=== PATIENT | male | born 1940 | race Caucasian/White ===

== ENCOUNTER 2019-11-15 12:01 | Outpatient (CLI) | payer OTHER, SELFPAY ==
[2019-11-15 13:53] LABS: Add Urine Microscopic? YES; Amorphous Sediment Urine Few; Appearance Urine Clear (Clear); Bilirubin Urine Negative (Negative); Blood Urine 1+ (Negative); Color Urine Yellow (Yellow); Glucose Urine UA Negative (Negative); Ketones Urine Negative (Negative); Leukocyte Esterase Ur 3+ LEU/UL (Negative); Mucus Urine Rare /lpf; Nitrate Urine Negative (Negative); Protein Urine Negative (Negative); RBC Urine 51-75 /hpf (0-2); Specific Grav Ur 1.012 (1.001-1.035); Urobilinogen Urine Negative mg/dL (<2.0); WBC Urine 21-30 /hpf
== END 2019-11-15 12:02 | disposition home or self-care (01) ==
PROVIDERS: PCP Internal Medicine; Visit Provider Internal Medicine
DX: R39.11 Hesitancy of micturition (principal)
CPT/HCPCS: 81001; 87086; 87088; 87147

== ENCOUNTER 2019-11-16 09:31 | Emergency (ER) | payer OTHER, SELFPAY ==
--- NOTE | ~2019-11-16 | CT_ITS ---
EXAMINATION: CT abdomen pelvis wo con EXAM DATE: 11/16/2019 10:00 INDICATION: Right flank pain. Urinary retention. History nephrolithiasis. TECHNIQUE: Spiral CT of the abdomen and pelvis was performed without contrast. Axial, coronal and sag ittal images were reviewed. The dose-length product (DLP) for this examination was 714.41 mGy-cm. T he exposure was tailored according to patient size (auto mA exposure control), and iterative reconstr uction (ASIR) was used as additional dose reduction technique. Comparison is made to prior examinatio n from 09/05/2018. FINDINGS: There is no nephrolithiasis or hydronephrosis. There is mild prostatomegaly. Severe bladd er distention, similar appearance on prior study. Small bilateral inguinal fat-containing hernias. Sm all umbilical fat-containing hernia. There is mild hepatic steatosis without suspicious focal lesion identified. Spleen, adrenal glands, pancreas are unremarkable. Gallbladder is unremarkable. No carla iary obstruction. There is no retroperitoneal or pelvic lymphadenopathy. There is mild to moderate scattered arteriosclerotic disease. The appendix is normal. There is small sliding gastroesophageal hiatal hernia. There is extensive co lonic diverticulosis. There is no adjacent inflammatory change to suggest diverticulitis. No free i ntraperitoneal gas. The heart is normal in size. There are no pericardial or pleural effusions. T he lung bases are unremarkable. There are no osteoblastic or osteolytic lesions identified. Fused sa croiliac joints. IMPRESSION: 1. Severe chronic bladder distention. Mild prostatomegaly. No hydronephrosis. 2. Small fat-containing hernias. 3. Colonic diverticulosis. Reviewed, dictated and finalized at location A.
--- NOTE | 2019-11-16 09:38 | ED.GENADULT ---
HPI - General Adult General Chief complaint: Urogenital-Male Stated complaint: DIFFICULTY URINATING Time Seen by Provider: 11/16/19 09:35 Source: patient and family Mode of arrival: ambulatory Limitations: no limitations History of Present Illness HPI narrative: Patient is a 79-year-old male with a history of nephrolithiasis who presents for evaluation of difficulty with urination. Patient reports urinary retention since yesterday, states he is only been able to get small dribbling of urination. He has not noticed any hematuria or dysuria. He has no abdominal pain, states he does just feel mildly distended. He has reported some dull, aching right flank pain which seems to come and go. He also reports this is mild in nature. Patient states he has a history of urinary retention in 2010 when he was found to have a large stone in his bladder which required surgical removal. Patient does not follow with any urologist currently. He has noted to have prostate issues as well per the patient. Patient denies fever, chills, nausea or vomiting. No other chest pain or upper abdominal pain. Related Data Allergies Allergy/AdvReac Type Severity Reaction Status Date / Time morphine Allergy Severe Hypotension Verified 11/16/19 09:58 oak Allergy Unknown posion oak Verified 11/16/19 09:58 Review of Systems Review of Systems: Narrative: CONSTITUTIONAL: Denies fever, chills, or sweats. CARDIOVASCULAR: Denies chest pain RESPIRATORY: Denies cough or dyspnea. GASTROINTESTINAL: Denies abdominal pain, nausea, vomiting, or diarrhea. Reports right-sided flank pain. GENITOURINARY: Denies dysuria or hematuria. Reports hesitancy and urinary retention. SKIN: Denies rash or itching. MUSCULOSKELETAL: denies myalgias NEUROLOGIC: Denies headache, numbness, or weakness. [facility] Past Medical History Medical History (Updated 11/16/19 @ 11:09 by Leonila Mulligan MD) Diverticulitis Hyperlipidemia Hypertension Nephrolithiasis Pneumonia Surgical History Surgical History (Updated 11/16/19 @ 09:51 by Leonila Mulligan MD) History of prostate surgery Previous back surgery Family History Family History (Updated 05/30/18 @ 15:38 by DOCTOR UNKNOWN) Sibling Hypertension Malignant neoplasm of prostate Patient's brother is Mother Family history of malignant neoplasm of breast in first degree relative Family history of malignant neoplasm of urinary bladder Patient's mother is Father Patient's father is Social History Social History Smoking status: Never smoker Alcohol intake: never Gender identity (if verbalized by the patient): Male Exam Narrative: Exam Narrative: GENERAL: Awake, alert, conversant HEAD: Normocephalic, atraumatic. EYES: PERRLA and EOMI. ENT: Nares clear, no rhinorrhea or epistaxis. Mucous membranes moist. NECK: Supple. CHEST: No respiratory distress, breathing even and non labored HEART: Regular rate, sinus rhythm ABDOMEN:Mild distension, non tender EXTREMITIES: Normal range of motion. No edema. SKIN: Warm, dry, no rash. NEURO:No focal deficits. Alert and oriented x3 Course Vital Signs Vital signs: Vital Signs Temperature 36.4 C L 11/16/19 09:55 Pulse Rate 66 11/16/19 09:55 Respiratory Rate 18 11/16/19 09:55 Blood Pressure 143/82 H 11/16/19 09:55 Pulse Oximetry 98 11/16/19 09:55 Temperature 36.4 C L 11/16/19 09:55 Pulse Rate 66 11/16/19 09:55 Respiratory Rate 18 11/16/19 09:55 Blood Pressure 143/82 H 11/16/19 09:55 Pulse Oximetry 98 11/16/19 09:55 Medical Decision Making MDM Narrative Medical decision making narrative: Patient presented for evaluation of urinary retention, mild right flank pain. At the time of assessment, ABCs are intact and vital signs are stable. Physical exam relatively noncontributory, mild abdominal distention, no exquisite tenderness. Laboratory results are reassuring. No leukocyt
[2019-11-16 09:55] VITALS: BP 143/82; PULSE 66; RESP 18; TEMP 36.4; O2SAT 98
--- NOTE | 2019-11-16 10:10 | PC.NURSE ---
Perkins cath clamped. 1000ml emptied from bag.
[2019-11-16 10:14] LABS: Basophils Percent Auto 0.3 % (0.2-1.2); Eosinophils Absolute Auto 0.2 K/mm3 (0-0.3); Eosinophils Percent Auto 2.7 % (0-4.4); Hematocrit 43.6 % (42.0-52.0); Hemoglobin 14.4 g/dL (14.0-18.0); Immature Granulocyte Absolute 0.01 K/mm3 (0.00-0.031); Immature Granulocyte Percent A 0.2 % (0-0.5); Lymphocytes Absolute Auto 1.35 K/mm3 (0.9-3.2); Lymphocytes Percent Auto 22.5 % (18.3-44.2); Mean Corpuscular Hemoglobin 31.4 pg (26-34); Mean Platelet Volume 9.1 fl (7.4-10.4); Monocytes Absolute Auto 0.8 K/mm3 (0.1-0.6); Monocytes Percent Auto 12.8 % (2.6-8.5); Neutrophils Absolute Auto 3.7 K/mm3 (1.3-6.7); Neutrophils Percent Auto 61.5 % (45.5-73.1); Platelet Count Result 226 k/mm3 (150-375); Red Blood Count 4.59 M/mm3 (4.6-6.20)
[2019-11-16 10:23] LABS: Add Urine Microscopic? YES; Appearance Urine Clear (Clear); Bilirubin Urine Negative (Negative); Blood Urine 1+ (Negative); Color Urine Straw (Yellow); Glucose Urine UA Negative (Negative); Ketones Urine Negative (Negative); Leukocyte Esterase Ur Negative LEU/UL (Negative); Nitrate Urine Negative (Negative); Protein Urine Negative (Negative); Urobilinogen Urine Negative mg/dL (<2.0); WBC Urine 0-3 /hpf
[2019-11-16 10:32] LABS: Alanine Aminotransferase 33 U/L (4-50); Albumin Level 4.8 g/dL (3.5-5.1); Alkaline Phosphatase 65 U/L (38-126); Aspartate Amino Transferase 39 U/L (17-59); Bilirubin,Total 0.6 mg/dL (0.2-1.3); Blood Urea Nitrogen 15 mg/dL (9-20); Calcium 9.8 mg/dL (8.4-10.2); Carbon Dioxide 29 mmol/L (22-30); Chloride 102 mmol/L (98-107); Estimated CRCL calculation 68 ml/min; Estimated Glomerular Filt Rate > 60; Glucose 102 mg/dL (75-110); Lipase 90 U/L (23-300); Potassium 4.4 mmol/L (3.4-5.0); Sodium 136 mmol/L (137-145)
== END 2019-11-16 11:26 | disposition home or self-care (01) ==
PROVIDERS: Emergency Provider Emergency Medicine; PCP Internal Medicine
DX: N40.1 Benign prostatic hyperplasia with lower urinary tract symptoms (principal); R33.8 Other retention of urine; E78.5 Hyperlipidemia, unspecified; I10 Essential (primary) hypertension; K57.90 Diverticulosis of intestine, part unspecified, without perforation or abscess without bleeding; K44.9 Diaphragmatic hernia without obstruction or gangrene
CPT/HCPCS: 36415; 51702; 74176; 80053; 81001; 83690; 85025; 99284

== ENCOUNTER 2019-12-19 18:37 | Inpatient (IN) | payer OTHER, SELFPAY ==
--- NOTE | ~2019-12-19 | CT_ITS ---
EXAMINATION: CT abdomen pelvis w con DATE: 12/19/2019 20:58 INDICATION: Right lower abdominal pain TECHNIQUE: Computed tomography (CT) of the abdomen and pelvis was performed with 100 cc Omnipaque 350 intravenous contrast. The dose-length product was 698.70 mGy-cm. Automated exposure control and iter ative reconstruction technique were employed. COMPARISON: CT dated 11/16/2019 FINDINGS: Lung bases unremarkable. Heart size normal. No significant pleural or pericardial effusion. Fatty infiltration of the liver. The spleen, pancreas, adrenal glands and right kidney are unremarkab le. There is mild left hydroureteronephrosis. There is diffuse bladder wall thickening with mild valentine vesical infiltration. Enlarged prostate gland. Nonobstructive bowel gas pattern. Small fat-containing umbilical hernia. Colonic diverticulosis without evidence for diverticulitis. Moderate osteoarthriti s of the hips. There is ankylosis of the sacroiliac joints. Moderate lumbar spondylosis. Punctate non obstructing left renal stones. IMPRESSION: 1. Diffuse bladder wall thickening with perivesical fatty infiltration, suspicious for cystitis. Jennifer elate with urinalysis. 2: Enlarged prostate gland. 3: Mild left hydroureteronephrosis. 4: Punctate nonobstructing left renal stones. 5: Hepatic steatosis. Reviewed, dictated and finalized at location A. IMPRESSION: 1. Diffuse bladder wall thickening with perivesical fatty infiltration, suspici ous for cystitis. Correlate with urinalysis. 2: Enlarged prostate gland. 3: Mild left hydroureteronephrosis. 4: Punctate nonobstructing left renal stones. 5: Hepatic steatosis.
--- NOTE | ~2019-12-19 | US_ITS ---
US renal BI 12/20/2019 16:38 Procedure: Realtime transabdominal ultrasound of the kidneys and bladder. Indication: Left hydronephrosis Comparison: CT dated 12/19/2019 Findings: Renal echotexture is normal bilaterally without hydronephrosis, contour deforming mass or r enal calculus. The right kidney measures 12.2 cm and left kidney measures 12.2 cm. There is a Perkins c atheter in the bladder limiting evaluation. Impression: 1: Unremarkable renal ultrasound. No stones, masses or hydronephrosis. Reviewed, dictated and finalized at location A. Impression: 1: Unremarkable renal ultrasound. No stones, masses or hydronephrosis.
--- NOTE | ~2019-12-19 | CT_ITS ---
EXAMINATION: CT brain wo con EXAM DATE: 12/21/2019 05:37 INDICATION: Sepsis. UTI, head trauma. Possible stroke. TECHNIQUE: Spiral CT of the head was performed without contrast. Axial, coronal and sagittal images were reviewed. The dose-length product (DLP) for this examination was 605.33 mGy-cm. The exposure w as tailored according to patient size, and iterative reconstruction (ASIR) was used as additional dos e reduction technique. There is no prior study for comparison. FINDINGS: There is no acute intraparenchymal hemorrhage. No evidence of intraparenchymal brain mass lesion. No evidence of acute infarction. Please note that initial head CT has limited sensitivity f or small or acute infarctions. There is mild to moderate periventricular and subcortical hypodensity, nonspecific but probably related to small vessel ischemic disease. There is ventricular prominence out of proportion to sulci which is suspected most likely central atrophy rather than hydrocephalus. Normal pressure hydrocephalus cannot be excluded (clinical triad ataxia/gait disturbance, dementia, urinary incontinence). There is intracranial carotid arteriosclerosis. There are no extra-axial c ollections. There is no mass effect or midline shift. Patient has had bilateral ocular lens surgery . Moderate sized left frontal scalp contusion. The visualized sinuses and mastoid air cells are well aerated. IMPRESSION: 1. No acute intracranial findings. 2. Chronic age related findings. 3. Moderate-sized left frontal scalp contusion. Reviewed, dictated and finalized at location A.
--- NOTE | ~2019-12-19 | XR_ITS ---
XR chest 1V portable 12/19/2019 20:26 Indication: Fever. Hypertension. Procedure: AP portable chest Comparison: 09/05/2018 Findings: Cardiomegaly. No focal air space disease, pulmonary edema, pleural effusion or suspected pn eumothorax. Impression: 1: No acute cardiopulmonary disease. Reviewed, dictated and finalized at location A. Impression: 1: No acute cardiopulmonary disease.
[2019-12-19 19:18] VITALS: BP 132/58; PULSE 103; RESP 20; TEMP 38.6; O2SAT 95
[2019-12-19 19:50] VITALS: BP 130/76; PULSE 112; RESP 17; O2SAT 96
--- NOTE | 2019-12-19 20:02 | ED.ABDPAIN ---
HPI - Abdominal Pain General Chief Complaint: Urogenital-Male Stated Complaint: confused, uti? Time Seen by Provider: 12/19/19 19:47 Source: patient and family Mode of arrival: ambulatory Limitations: altered mental status History of Present Illness HPI narrative: This patient is a 79 year old male with history urinary retention and self cath who presents for evaluation of confusion and UTI. His states patient starting having issues with urinary retention in October. After being evaluated by urologist, patient decided to start performing self catheterizations 2 days ago in order to keep from having an indwelling catheter. His states today patient has been confused and he is complaining of right lower abdominal pain. She spoke to his urologist today and patient was prescribed ciprofloxacin. He took his first dose of antibiotics at 5 pm. Patient is in the ER for evaluation due to confusion . . She noticed patient is having foul odorous and cloudy urine today as well. PAtient reports nausea but no vomiting. He also denies cough, sob, diarrhea, chest pain or back pain. Related Data Home Medications Medication Instructions Recorded Confirmed enalapril maleate 20 mg PO DAILY 12/19/19 12/19/19 pantoprazole 40 mg PO DAILY 12/19/19 12/19/19 Allergies Allergy/AdvReac Type Severity Reaction Status Date / Time morphine Allergy Severe Hypotension Verified 12/19/19 19:17 oak Allergy Unknown posion oak Verified 12/19/19 19:17 Review of Systems Review of Systems: All systems reviewed & are unremarkable except as noted in HPI and below Constitutional: Constitutional: Reports fatigue and Reports fever(s) Cardiovascular: Cardiovascular: Denies chest pain Respiratory: Respiratory: Denies cough and Denies dyspnea Gastrointestinal: Gastrointestinal: Reports abdominal pain, Denies diarrhea, Reports nausea and Denies vomiting Genitourinary: Genitourinary: Reports dysuria Musculoskeletal: Musculoskeletal: Denies back pain PMFSH Past Medical History Medical History Diverticulitis Hyperlipidemia Hypertension Nephrolithiasis Pneumonia Surgical History Surgical History History of prostate surgery Previous back surgery Family History Family History Sibling Hypertension Malignant neoplasm of prostate Patient's brother is Mother Family history of malignant neoplasm of breast in first degree relative Family history of malignant neoplasm of urinary bladder Patient's mother is Father Patient's father is Social History Social History Smoking status: Never smoker Alcohol intake: never Substance use: never Substance use type: does not use Gender identity (if verbalized by the patient): Male Spiritual care concerns: No Exam Const: General: no acute distress and alert Orientation/consciousness: patient oriented x3 HENMT: Head: normocephalic and atraumatic Face and sinus: face symmetric Mouth: Yes oropharynx normal and Yes moist mucous membranes Throat: uvula midline Eyes: Pupils: Equal, round and reactive pupils present EOM: EOMs intact bilaterally Neck: Neck: no lymphadenopathy Chest: Chest palpation & inspection: normal inspection of the chest Resp: Effort & Inspection: normal respiratory effort and no retractions Auscultation: clear to auscultation bilaterally Cardio: Rate: tachycardic Rhythm: regular rhythm Heart sounds: no murmurs GI: GI Palp: Yes Soft to palpation, Yes Tenderness to palpation present (GI) (RLQ), No Guarding due to palpation present (GI) and No Rigid due to palpation Back/Spine/Pelvis: Back: no CVA tenderness Skin: General skin exam: normal color Rashes: no rashes Neuro: General: faina
[2019-12-19] MEDS: SODIUM CHLORIDE 0.9% IV 1,000 ML 999 ML IV CONT (20:09)
[2019-12-19 20:13] LABS: Hematocrit 38.8 % (42.0-52.0); Hemoglobin 12.9 g/dL (14.0-18.0); Mean Corpuscular HGB Conc 33.2 g/dl (32-36); Mean Corpuscular Hemoglobin 31.1 pg (26-34); Mean Corpuscular Volume 93.5 fl (80-100); Mean Platelet Volume 9.3 fl (7.4-10.4); Platelet Count Result 313 k/mm3 (150-375); Red Blood Count 4.15 M/mm3 (4.6-6.20); Red Cell Distribution Width 12.7 % (11.5-14.5); White Blood Count 13.6 K/mm3 (4.5-10.0)
[2019-12-19 20:23] LABS: INR 1.1; Partial Thromboplastin Time 26.3 SECONDS (22.3-36.8); Prothrombin Time 13.8 Seconds (11.1-14.7)
[2019-12-19 20:24] LABS: Add Urine Microscopic? YES; Appearance Urine Cloudy (Clear); Bacteria Urine 1+ /hpf; Bilirubin Urine Negative (Negative); Blood Urine Negative (Negative); Color Urine Yellow (Yellow); Glucose Urine UA Negative (Negative); Ketones Urine Negative (Negative); Leukocyte Esterase Ur 3+ LEU/UL (Negative); Nitrate Urine Positive (Negative); Protein Urine 1+ mg/dL (Negative); Specific Grav Ur 1.012 (1.001-1.035); Urobilinogen Urine Negative mg/dL (<2.0); WBC Urine >75 /hpf
[2019-12-19 20:24] LABS: Lactic Acid Reflex 2.7 mmol/L (0.7-2.1)
[2019-12-19 20:27] LABS: Alanine Aminotransferase 28 U/L (4-50); Albumin Level 4.4 g/dL (3.5-5.1); Alkaline Phosphatase 60 U/L (38-126); Anion Gap 14.3 mmol/L (7-16); Aspartate Amino Transferase 34 U/L (17-59); Bilirubin,Total 0.4 mg/dL (0.2-1.3); Blood Urea Nitrogen 16 mg/dL (9-20); CRP 3.4 mg/dL (<1.0); Calcium 9.3 mg/dL (8.4-10.2); Carbon Dioxide 24 mmol/L (22-30); Chloride 100 mmol/L (98-107); Estimated CRCL calculation 68 ml/min; Estimated Glomerular Filt Rate > 60; Glucose 129 mg/dL (75-110); Potassium 4.3 mmol/L (3.4-5.0); Sodium 134 mmol/L (137-145)
[2019-12-19 20:33] LABS: Band Neutrophils Percent 6 % (0-6); Monocytes Absolute Manual 1.08 K/mm3 (0.1-0.90); Monocytes Percent Manual 8 % (3-9); Neutrophils Absolute Manual 12.51 K/mm3 (1.3-6.7); Neutrophils Percent Manual 86 % (46-73); Platelet Estimate Adequate (Adequate); Total Cells Counted 100
[2019-12-19 21:10] VITALS: BP 114/62; PULSE 102; RESP 21; O2SAT 94
[2019-12-19 22:15] VITALS: BP 120/70; PULSE 106; RESP 20; O2SAT 95
--- NOTE | 2019-12-19 22:40 | PM.IMHP ---
H&P: HPI History of Present Illness Chief complaint: severe sepsis, UTI Narrative: This is a 79 year old male who just started to self catheterize two days ago secondary to chronic urinary retention and presented to the hospital with a complaint of increasing confusion and fever this evening. The patient has had over a month of urinary retention and previously had an indwelling Perkins catheter. Urology gave him the option of a permanent urinary catheter vs. self catheterizing. 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 Associated symptoms include dysuria, urinary frequency, hematuria, and foul smelling urine. On arrival to the ER the patient also complained of right lower quadrant pain. CT abd pelvis was obtained which demonstrated diffuse bladder wall thickening with perivesical fatty infiltration, an enlarged prostate gland, and miild left hydroureteronephrosis. The patient was also found to be septic with tachycardia, leukocytosis, tachypnea, and an elevated lactic acid. He was treated with IV antibiotics and we have been asked to admit the patient to the hospital for further care. He denies focal neurological deficits, chest pain, shortness of breath, nausea, vomiting, flank pain, cough, or sore throat. He has no other complaints at this time. Review of Systems Review of Systems: All systems reviewed & are unremarkable except as noted in HPI and below PMFSH Past Medical History Medical History Diverticulitis Hyperlipidemia Hypertension Nephrolithiasis Pneumonia Surgical History Surgical History History of prostate surgery Previous back surgery Family History Family History Sibling Hypertension Malignant neoplasm of prostate Patient's brother is Mother Family history of malignant neoplasm of breast in first degree relative Family history of malignant neoplasm of urinary bladder Patient's mother is Father Patient's father is Social History Social History Smoking status: Never smoker Alcohol intake: never Substance use: never Substance use type: does not use Gender identity (if verbalized by the patient): Male Spiritual care concerns: No Meds Home Medications and Allergies Home Medications Medication Instructions Recorded Confirmed Type fluticasone propionate 50 2 spray NASAL DAILY #18.2 ml 10/10/19 12/19/19 Rx mcg/actuation nasal spray,suspension pravastatin 40 mg tablet 40 mg PO DAILY #90 tablet 11/11/19 12/19/19 Rx tamsulosin [Flomax] 0.4 mg PO HS 30 Days #30 cap 11/16/19 12/19/19 Rx enalapril maleate 20 mg PO DAILY 12/19/19 12/19/19 History pantoprazole 40 mg PO DAILY 12/19/19 12/19/19 History Allergies Allergy/AdvReac Type Severity Reaction Status Date / Time morphine Allergy Severe Hypotension Verified 12/19/19 19:17 oak Allergy Unknown posion oak Verified 12/19/19 19:17 Vital Signs Vital Signs - 24 hr 12/19/19 19:18 12/19/19 19:50 12/19/19 21:10 Temperature 38.6 C H Pulse Rate 103 H 112 H 102 H Respiratory Rate 20 17 21 H Blood Pressure 132/58 L 130/76 114/62 Pulse Oximetry 95 96 94 Exam Const: General: cooperative, no acute distress, alert and awake Nutritional Appearance: well nourished Orientation/consciousness: patient oriented x3 HENMT: Head: normal to inspection General nose exam: Normal external nose present Face and sinus: normal facial exam Mouth: Yes Normal oral and palatal mucosa present and Yes oropharynx normal Eyes: Pupils: Equal, round and reactive pupils present EOM: EOMs intact bilaterally Neck: Neck: supple and no JVD Thyroid: thyroid normal Lymphatic: lymphadenopathy not note
[2019-12-19 23:11] LABS: Reflex Lactic Acid Yes or No Add Lactic
[2019-12-19 23:50] VITALS: BP 109/65; PULSE 99; RESP 16; TEMP 37.2; O2SAT 97
[2019-12-19 23:51] VITALS: BMI 28.6
[2019-12-20 00:08] LABS: Lactic Acid 1.1 mmol/L (0.7-2.1)
[2019-12-20] MEDS: SODIUM CHLORIDE 0.9% IV 1,000 ML 125 ML IV CONT ×3 (00:21→17:04)
[2019-12-20 05:14] VITALS: BP 125/70; PULSE 93; RESP 16; TEMP 37.3; O2SAT 97
[2019-12-20 05:37] LABS: Basophils Percent Auto 0.3 % (0.2-1.2); Eosinophils Percent Auto 0.1 % (0-4.4); Hematocrit 35.8 % (42.0-52.0); Hemoglobin 11.6 g/dL (14.0-18.0); Immature Granulocyte Percent A 0.7 % (0-0.5); Lymphocytes Absolute Auto 0.91 K/mm3 (0.9-3.2); Lymphocytes Percent Auto 6.1 % (18.3-44.2); Mean Corpuscular HGB Conc 32.4 g/dl (32-36); Mean Corpuscular Hemoglobin 30.6 pg (26-34); Mean Corpuscular Volume 94.5 fl (80-100); Monocytes Absolute Auto 1.4 K/mm3 (0.1-0.6); Monocytes Percent Auto 9.2 % (2.6-8.5); Neutrophils Absolute Auto 12.4 K/mm3 (1.3-6.7); Neutrophils Percent Auto 83.6 % (45.5-73.1); Platelet Count Result 243 k/mm3 (150-375); Red Blood Count 3.79 M/mm3 (4.6-6.20); Red Cell Distribution Width 12.9 % (11.5-14.5); White Blood Count 14.8 K/mm3 (4.5-10.0)
[2019-12-20 05:50] LABS: Alanine Aminotransferase 21 U/L (4-50); Albumin Level 3.6 g/dL (3.5-5.1); Alkaline Phosphatase 47 U/L (38-126); Aspartate Amino Transferase 24 U/L (17-59); Bilirubin,Total 0.5 mg/dL (0.2-1.3); Blood Urea Nitrogen 13 mg/dL (9-20); Calcium 8.6 mg/dL (8.4-10.2); Carbon Dioxide 26 mmol/L (22-30); Chloride 105 mmol/L (98-107); Estimated CRCL calculation 61 ml/min; Estimated Glomerular Filt Rate > 60; Glucose 119 mg/dL (75-110); Sodium 136 mmol/L (137-145)
[2019-12-20] MEDS: ENALAPRIL MALEATE 10 MG TABLET 20 MG PO (08:06)
[2019-12-20] MEDS: PANTOPRAZOLE 40 MG TABLET PO (08:06)
[2019-12-20] MEDS: FLUTICASONE PROPIONATE 0.05% NA SPR 16 GM BTL (*BKC) 2 SPRAY NASAL (08:06)
[2019-12-20] MEDS: PRAVASTATIN SODIUM 20 MG TABLET 40 MG PO (08:06)
[2019-12-20 14:00] VITALS: BP 105/63; PULSE 72; RESP 16; TEMP 36.4; O2SAT 100
--- NOTE | 2019-12-20 14:01 | WPDURCON ---
Assessment and Plan Assessment and plan (1) Complicated UTI (urinary tract infection): Code(s): N39.0 - Urinary tract infection, site not specified Status: Acute Assessment and Plan: Continue IV antibiotics, tailor to culture results. (2) BPH (benign prostatic hyperplasia): Code(s): N40.0 - Benign prostatic hyperplasia without lower urinary tract symptoms Status: Acute Assessment and Plan: Plan to have cysto next week with Dr. Lopez as long as he is discharged, we will re-check urine prior to scope to ensure resolution of infection. 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 D/t his atonic bladder he will have to resume self catheterization to ensure proper emptying and avoid hydronephrosis. Creatinine is normal. He does not want an indwelling lanza, that would need monthly changes, he elected self catheterization. He understands he will be at a higher risk of UTI's, but either way he is d/t the complicated issue of retention/indwelling lanza versus self catheterization. (4) Hydronephrosis: Code(s): N13.30 - Unspecified hydronephrosis Status: Acute Assessment and Plan: Will get BRANT to ensure resolution post lanza placement. (5) Left renal stone: Code(s): N20.0 - Calculus of kidney Status: Acute Assessment and Plan: Punctate left renal stones non obstructive. Will monitor, no intervention needed. Urology Consult Note HPI Date Seen: 12/20/19 Requesting Physician: Fam Garcia MD Primary Care Provider: Keith Stahl DO Consult Narrative Narrative: Hermes Killian is a 79 year old male who presented to the ER yesterday with confusion, dysuria, hematuria, fever, tachycardia and hypotension. 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 He was taught how to self catheterize and his indwelling lanza was removed at that office visit. He demonstrated self catheterization well and understands he will need to do this indefinately. He is also scheduled for a cystoscopy with Dr. Lopez to evaluate his known BPH on 12/24/2019 at 07:45. He called yesterday to report symptoms of a UTI with hematuria and dysuria, we started him on Ciprofloxacin. He denied a fever, chills, vomiting, nausea or confusion yesterday per our phone conversation. His CT scan shows BPH, left hydronephrosis, bladder wall thickening and punctate kidney stones that are non obstructive. UA is nitrite positive and urine cultures/blood cultures are pending. WBC is elvated >14,000 but creatinine is stable. Hydronephrosis on the left is noted on CT, d/t known retention. Review of Systems Cardiovascular: Cardiovascular: Denies chest pain Respiratory: Respiratory: Reports no additional respiratory complaints Gastrointestinal: Gastrointestinal: Denies abdominal pain, Denies nausea and Denies vomiting Genitourinary: Genitourinary: Reports hematuria, Reports oliguria, Reports dysuria, Denies flank pain, Reports nocturia, Denies urinary frequency, Reports urinary hesitancy and Denies urinary urgency [facility] Past Medical History Medical History Diverticulitis Hyperlipidemia Hypertension Nephrolithiasis Pneumonia Surgical History Surgical History History of prostate surgery Previous back surgery Family History Family History Sibling Hypertension Malignant neoplasm of prostate Patient's brother is Mother Family history of malignant neoplasm of breast in first degree relative Family history of malignant n
--- NOTE | 2019-12-20 16:52 | PM.IMPN ---
Progress Note: A&P Assessment and Plan (1) Complicated UTI (urinary tract infection): Code(s): N39.0 - Urinary tract infection, site not specified Status: Acute Assessment and Plan: Secondary to self catheterizing. Admit to med-surg, Continue IV antibiotics. Perkins catheter. Urine culture pending. 12/20/19 16:52 patient is 79 year with history of BPH and had been seen urology was recently diagnosed with atonic bladder and was instructed to do the self catheterization which patient had been doing however he presented emergency depart with lower abdominal feverish nausea or vomiting, patient is seen by Urology team, place the patient on Perkins catheter, patient is septic and being treated with Rocephin will follow up on urine culture and sensitivity, patient still complains of abdominal but denies any fever or chills at the present time. (2) Severe sepsis: Code(s): A41.9 - Sepsis, unspecified organism; R65.20 - Severe sepsis without septic shock Status: Acute Assessment and Plan: Source of sepsis appear to be urinary. Continue IV antibiotics. Light IV hydration overnight. Check reflex lactic acid. Blood and urine cultures pending. (3) Leukocytosis: Qualifiers: Leukocytosis type: unspecified Qualified Code(s): D72.829 - Elevated white blood cell count, unspecified Code(s): D72.829 - Elevated white blood cell count, unspecified Status: Acute Assessment and Plan: secondary to sepsis and UTI monitor CBCd. (4) Hyperlipidemia: Qualifiers: Hyperlipidemia type: unspecified Qualified Code(s): E78.5 - Hyperlipidemia, unspecified Code(s): E78.5 - Hyperlipidemia, unspecified Status: Chronic Assessment and Plan: Continue pravastatin. (5) Hypertension: Qualifiers: Hypertension type: unspecified Qualified Code(s): I10 - Essential (primary) hypertension Code(s): I10 - Essential (primary) hypertension Status: Chronic Assessment and Plan: Monitor blood pressure. Continue enalapril. (6) Gastroesophageal reflux disease: Qualifiers: Esophagitis presence: esophagitis presence not specified Qualified Code(s): K21.9 - Gastro-esophageal reflux disease without esophagitis Code(s): K21.9 - Gastro-esophageal reflux disease without esophagitis Status: Chronic Assessment and Plan: Continue PPI therapy Subjective Date/time seen: 12/20/19 16:52 patient is 79 year with history of BPH and had been seen urology was recently diagnosed with atonic bladder and was instructed to do the self catheterization which patient had been doing however he presented emergency depart with lower abdominal feverish nausea or vomiting, patient is seen by Urology team, place the patient on Perkins catheter, patient is septic and being treated with Rocephin will follow up on urine culture and sensitivity, patient still complains of abdominal but denies any fever or chills at the present time. Review of Systems Review of Systems: All systems reviewed & are unremarkable except as noted in HPI and below Exam Narrative: Exam Narrative: elderly frail Const: General: no acute distress and uncomfortable HENMT: General nose exam: Normal nares present Mouth: Yes moist mucous membranes Eyes: General: appearance normal, both eyes and all related structures Sclera: sclerae normal Neck: Neck: supple Resp: Effort & Inspection: normal respiratory effort Auscultation: clear to auscultation bilaterally Cardio: Rate: regular rate Rhythm: regular rhythm GI: Auscultation: normal bowel sounds Other: patient is tender in suprapubic area Skin: General skin exam: normal color Neuro: Speech: normal speech Sensory Exam: normal sensation Extrem: General: normal to inspection Psych: Affect: Anxious affect present Objective Data Vital Signs Vital Signs: Vital Signs - 24 hr 12/19/19 19:18 12/19/19 19:50 0
[2019-12-20 21:17] VITALS: BP 113/64; PULSE 93; RESP 16; TEMP 37.8; O2SAT 98
[2019-12-20] MEDS: TAMSULOSIN HCL 0.4 MG CAPSULE PO (21:22)
[2019-12-21] MEDS: SODIUM CHLORIDE 0.9% IV 1,000 ML 125 ML IV CONT ×3 (01:35→17:13)
[2019-12-21 04:54] VITALS: BP 115/58; PULSE 95; RESP 18; TEMP 36.9; O2SAT 98
--- NOTE | 2019-12-21 05:46 | PM.EVENT ---
Event Note Event Note Event Note: Called to evaluate this 79 year old male who is being treated for a UTI after he suffered a nonwitnessed fall tonight. The patient was sitting on the toilet and decided to stand up before he was going to call the nursing staff for help back into bed and he simply lost his balance and fell forward. He suffered head trauma and landed head first onto the floor. The patient sustained a 3x5 cm left frontal hematoma++ Currently he denies any focal neurological deficits and denies even having a headache. We will obtain a STAT CT brain to rule out any intracranial hemorrhage. He is not known to be on any anticoagulants.
[2019-12-21 06:16] LABS: Basophils Percent Auto 0.3 % (0.2-1.2); Eosinophils Percent Auto 0.3 % (0-4.4); Hematocrit 32.7 % (42.0-52.0); Hemoglobin 10.6 g/dL (14.0-18.0); Immature Granulocyte Absolute 0.09 K/mm3 (0.00-0.031); Immature Granulocyte Percent A 0.7 % (0-0.5); Mean Corpuscular HGB Conc 32.4 g/dl (32-36); Mean Corpuscular Hemoglobin 30.8 pg (26-34); Mean Corpuscular Volume 95.1 fl (80-100); Mean Platelet Volume 9.4 fl (7.4-10.4); Monocytes Absolute Auto 1.1 K/mm3 (0.1-0.6); Monocytes Percent Auto 8.3 % (2.6-8.5); Neutrophils Absolute Auto 11.4 K/mm3 (1.3-6.7); Neutrophils Percent Auto 82.4 % (45.5-73.1); Platelet Count Result 231 k/mm3 (150-375); Red Blood Count 3.44 M/mm3 (4.6-6.20); White Blood Count 13.8 K/mm3 (4.5-10.0)
[2019-12-21 06:30] LABS: Anion Gap 9.8 mmol/L (7-16); Blood Urea Nitrogen 11 mg/dL (9-20); Calcium 8.3 mg/dL (8.4-10.2); Carbon Dioxide 23 mmol/L (22-30); Chloride 106 mmol/L (98-107); Estimated CRCL calculation 61 ml/min; Estimated Glomerular Filt Rate > 60; Glucose 115 mg/dL (75-110); Potassium 3.8 mmol/L (3.4-5.0); Sodium 135 mmol/L (137-145)
[2019-12-21] MEDS: ENALAPRIL MALEATE 10 MG TABLET 20 MG PO (09:21)
[2019-12-21] MEDS: PANTOPRAZOLE 40 MG TABLET PO (09:21)
[2019-12-21] MEDS: PRAVASTATIN SODIUM 20 MG TABLET 40 MG PO (09:21)
[2019-12-21] MEDS: FLUTICASONE PROPIONATE 0.05% NA SPR 16 GM BTL (*BKC) 2 SPRAY NASAL (09:21)
--- NOTE | 2019-12-21 13:36 | PM.IMPN ---
Progress Note: A&P Assessment and Plan (1) Complicated UTI (urinary tract infection): Code(s): N39.0 - Urinary tract infection, site not specified Status: Acute Assessment and Plan: Secondary to self catheterizing. Admit to med-surg, Continue IV antibiotics. Perkins catheter. Urine culture pending. 12/21/19 13:36 Secondary to self catheterizing. Admit to med-surg, Continue IV antibiotics. Perkins catheter. Urine culture pending. 12/20/19 16:52 patient is 79 year with history of BPH and had been seen urology was recently diagnosed with atonic bladder and was instructed to do the self catheterization which patient had been doing however he presented emergency depart with lower abdominal feverish nausea or vomiting, patient is seen by Urology team, placed the patient on Perkins catheter, patient is septic, urine culture is growing Morganella morganii sensitive to Rocephin will continue, will treat with IV antibiotics total of 7 day, patient still complains of abdominal but denies any fever or chills at the present time. (2) Severe sepsis: Code(s): A41.9 - Sepsis, unspecified organism; R65.20 - Severe sepsis without septic shock Status: Acute Assessment and Plan: Source of sepsis appear to be urinary. Continue IV antibiotics. Light IV hydration overnight. Check reflex lactic acid. Blood and urine cultures pending. (3) Leukocytosis: Qualifiers: Leukocytosis type: unspecified Qualified Code(s): D72.829 - Elevated white blood cell count, unspecified Code(s): D72.829 - Elevated white blood cell count, unspecified Status: Acute Assessment and Plan: secondary to sepsis and UTI monitor CBCd. (4) Hyperlipidemia: Qualifiers: Hyperlipidemia type: unspecified Qualified Code(s): E78.5 - Hyperlipidemia, unspecified Code(s): E78.5 - Hyperlipidemia, unspecified Status: Chronic Assessment and Plan: Continue pravastatin. (5) Hypertension: Qualifiers: Hypertension type: unspecified Qualified Code(s): I10 - Essential (primary) hypertension Code(s): I10 - Essential (primary) hypertension Status: Chronic Assessment and Plan: Monitor blood pressure. Continue enalapril. (6) Gastroesophageal reflux disease: Qualifiers: Esophagitis presence: esophagitis presence not specified Qualified Code(s): K21.9 - Gastro-esophageal reflux disease without esophagitis Code(s): K21.9 - Gastro-esophageal reflux disease without esophagitis Status: Chronic Assessment and Plan: Continue PPI therapy Subjective Date/time seen: 12/21/19 13:36 Secondary to self catheterizing. Admit to med-surg, Continue IV antibiotics. Perkins catheter. Urine culture pending. 12/20/19 16:52 patient is 79 year with history of BPH and had been seen urology was recently diagnosed with atonic bladder and was instructed to do the self catheterization which patient had been doing however he presented emergency depart with lower abdominal feverish nausea or vomiting, patient is seen by Urology team, placed the patient on Perkins catheter, patient is septic, urine culture is growing Morganella morganii sensitive to Rocephin will continue, will treat with IV antibiotics total of 7 day, patient still complains of abdominal but denies any fever or chills at the present time. Review of Systems Review of Systems: All systems reviewed & are unremarkable except as noted in HPI and below Exam Const: General: comfortable and no acute distress HENMT: General nose exam: Normal nares present Eyes: General: appearance normal, both eyes and all related structures Sclera: sclerae normal Neck: Neck: supple Resp: Effort & Inspection: normal respiratory effort Auscultation: clear to auscultation bilaterally Cardio: Rate: regular rate Rhythm: regular rhythm GI: Auscultation: normal bowel sounds Other: patient is tender in suprapubic
[2019-12-21 14:30] VITALS: BP 105/63; PULSE 63; RESP 16; TEMP 36.4; O2SAT 100
[2019-12-21] MEDS: TAMSULOSIN HCL 0.4 MG CAPSULE PO (20:06)
[2019-12-21 20:26] VITALS: BP 126/69; PULSE 66; RESP 16; TEMP 37.2; O2SAT 97
[2019-12-22] MEDS: SODIUM CHLORIDE 0.9% IV 1,000 ML 125 ML IV CONT ×2 (01:15→09:23)
[2019-12-22 05:26] LABS: Basophils Percent Auto 0.5 % (0.2-1.2); Eosinophils Absolute Auto 0.2 K/mm3 (0-0.3); Eosinophils Percent Auto 2.7 % (0-4.4); Hematocrit 31.6 % (42.0-52.0); Hemoglobin 10.3 g/dL (14.0-18.0); Immature Granulocyte Absolute 0.05 K/mm3 (0.00-0.031); Immature Granulocyte Percent A 0.6 % (0-0.5); Lymphocytes Absolute Auto 1.23 K/mm3 (0.9-3.2); Mean Corpuscular HGB Conc 32.6 g/dl (32-36); Mean Corpuscular Hemoglobin 30.7 pg (26-34); Mean Corpuscular Volume 94.3 fl (80-100); Mean Platelet Volume 9.1 fl (7.4-10.4); Monocytes Absolute Auto 0.8 K/mm3 (0.1-0.6); Monocytes Percent Auto 9.1 % (2.6-8.5); Neutrophils Absolute Auto 6.4 K/mm3 (1.3-6.7); Neutrophils Percent Auto 73.1 % (45.5-73.1); Platelet Count Result 207 k/mm3 (150-375); Red Blood Count 3.35 M/mm3 (4.6-6.20); White Blood Count 8.8 K/mm3 (4.5-10.0)
[2019-12-22 05:43] LABS: Anion Gap 7.8 mmol/L (7-16); Blood Urea Nitrogen 8 mg/dL (9-20); Calcium 8.2 mg/dL (8.4-10.2); Carbon Dioxide 25 mmol/L (22-30); Chloride 108 mmol/L (98-107); Estimated CRCL calculation 69 ml/min; Estimated Glomerular Filt Rate > 60; Glucose 101 mg/dL (75-110); Potassium 3.8 mmol/L (3.4-5.0); Sodium 137 mmol/L (137-145)
[2019-12-22 06:00] VITALS: BP 128/66; PULSE 79; RESP 16; TEMP 37.1; O2SAT 94
[2019-12-22] MEDS: PRAVASTATIN SODIUM 20 MG TABLET 40 MG PO (09:25)
[2019-12-22] MEDS: FLUTICASONE PROPIONATE 0.05% NA SPR 16 GM BTL (*BKC) 2 SPRAY NASAL (09:25)
[2019-12-22] MEDS: PANTOPRAZOLE 40 MG TABLET PO (09:25)
[2019-12-22] MEDS: ENALAPRIL MALEATE 10 MG TABLET 20 MG PO (09:28)
--- NOTE | 2019-12-22 12:04 | PM.IMPN ---
Progress Note: A&P Assessment and Plan (1) Complicated UTI (urinary tract infection): Code(s): N39.0 - Urinary tract infection, site not specified Status: Acute Assessment and Plan: Secondary to self catheterizing. Admit to med-surg, Continue IV antibiotics. Perkins catheter. Urine culture pending. 12/22/19 12:04 Secondary to self catheterizing. Admit to med-surg, Continue IV antibiotics. Perkins catheter. Urine culture pending. 12/20/19 16:52 patient is 79 year with history of BPH and had been seen urology was recently diagnosed with atonic bladder and was instructed to do the self catheterization which patient had been doing however he presented emergency depart with lower abdominal feverish nausea or vomiting, patient is seen by Urology team, placed the patient on Perkins catheter, patient is septic, urine culture is growing Morganella morganii sensitive to Rocephin will continue, will treat with IV antibiotics total of 4/7 day, patient still complains of abdominal but denies any fever or chills at the present time. will have a PT OT evaluate the patient (2) Severe sepsis: Code(s): A41.9 - Sepsis, unspecified organism; R65.20 - Severe sepsis without septic shock Status: Acute Assessment and Plan: Source of sepsis appear to be urinary. Continue IV antibiotics. Light IV hydration overnight. Check reflex lactic acid. Blood and urine cultures pending. (3) Leukocytosis: Qualifiers: Leukocytosis type: unspecified Qualified Code(s): D72.829 - Elevated white blood cell count, unspecified Code(s): D72.829 - Elevated white blood cell count, unspecified Status: Acute Assessment and Plan: secondary to sepsis and UTI monitor CBCd. (4) Hyperlipidemia: Qualifiers: Hyperlipidemia type: unspecified Qualified Code(s): E78.5 - Hyperlipidemia, unspecified Code(s): E78.5 - Hyperlipidemia, unspecified Status: Chronic Assessment and Plan: Continue pravastatin. (5) Hypertension: Qualifiers: Hypertension type: unspecified Qualified Code(s): I10 - Essential (primary) hypertension Code(s): I10 - Essential (primary) hypertension Status: Chronic Assessment and Plan: Monitor blood pressure. Continue enalapril. (6) Gastroesophageal reflux disease: Qualifiers: Esophagitis presence: esophagitis presence not specified Qualified Code(s): K21.9 - Gastro-esophageal reflux disease without esophagitis Code(s): K21.9 - Gastro-esophageal reflux disease without esophagitis Status: Chronic Assessment and Plan: Continue PPI therapy Subjective Date/time seen: 12/22/19 12:04 Secondary to self catheterizing. Admit to med-surg, Continue IV antibiotics. Perkins catheter. Urine culture pending. 12/20/19 16:52 patient is 79 year with history of BPH and had been seen urology was recently diagnosed with atonic bladder and was instructed to do the self catheterization which patient had been doing however he presented emergency depart with lower abdominal feverish nausea or vomiting, patient is seen by Urology team, placed the patient on Perkins catheter, patient is septic, urine culture is growing Morganella morganii sensitive to Rocephin will continue, will treat with IV antibiotics total of 4/7 day, patient still complains of abdominal but denies any fever or chills at the present time. will have a PT OT evaluate the patient Review of Systems Review of Systems: All systems reviewed & are unremarkable except as noted in HPI and below Exam Const: General: comfortable and no acute distress HENMT: General nose exam: Normal nares present Eyes: General: appearance normal, both eyes and all related structures Sclera: sclerae normal Neck: Neck: supple Resp: Effort & Inspection: normal respiratory effort Auscultation: clear to auscultation bilaterally Cardio: Rate: regular rate Rhythm: regular rhythm
[2019-12-22 14:00] VITALS: BP 134/77; PULSE 71; RESP 16; TEMP 37; O2SAT 98
[2019-12-22 21:15] VITALS: PULSE 65; RESP 18; O2SAT 100
[2019-12-22] MEDS: TAMSULOSIN HCL 0.4 MG CAPSULE PO (21:16)
[2019-12-22 22:00] VITALS: BP 122/72; PULSE 65; RESP 18; TEMP 36.7; O2SAT 100
[2019-12-23] MEDS: ACETAMINOPHEN 325 MG TABLET 650 MG PO (04:11)
[2019-12-23 06:03] LABS: Basophils Percent Auto 0.4 % (0.2-1.2); Eosinophils Absolute Auto 0.3 K/mm3 (0-0.3); Eosinophils Percent Auto 3.7 % (0-4.4); Hemoglobin 10.2 g/dL (14.0-18.0); Immature Granulocyte Absolute 0.03 K/mm3 (0.00-0.031); Immature Granulocyte Percent A 0.4 % (0-0.5); Lymphocytes Absolute Auto 1.16 K/mm3 (0.9-3.2); Lymphocytes Percent Auto 15.8 % (18.3-44.2); Mean Corpuscular HGB Conc 32.9 g/dl (32-36); Mean Corpuscular Hemoglobin 30.8 pg (26-34); Mean Corpuscular Volume 93.7 fl (80-100); Mean Platelet Volume 9.5 fl (7.4-10.4); Monocytes Absolute Auto 0.8 K/mm3 (0.1-0.6); Monocytes Percent Auto 10.2 % (2.6-8.5); Neutrophils Absolute Auto 5.1 K/mm3 (1.3-6.7); Neutrophils Percent Auto 69.5 % (45.5-73.1); Platelet Count Result 228 k/mm3 (150-375); Red Blood Count 3.31 M/mm3 (4.6-6.20); Red Cell Distribution Width 12.8 % (11.5-14.5); White Blood Count 7.3 K/mm3 (4.5-10.0)
[2019-12-23 06:05] LABS: Anion Gap 8.4 mmol/L (7-16); Blood Urea Nitrogen 8 mg/dL (9-20); Calcium 8.5 mg/dL (8.4-10.2); Carbon Dioxide 25 mmol/L (22-30); Chloride 106 mmol/L (98-107); Estimated CRCL calculation 79 ml/min; Estimated Glomerular Filt Rate > 60; Glucose 99 mg/dL (75-110); Potassium 3.4 mmol/L (3.4-5.0); Sodium 136 mmol/L (137-145)
[2019-12-23 06:57] VITALS: BP 140/72; PULSE 62; RESP 16; TEMP 36.4; O2SAT 96
[2019-12-23] MEDS: ENALAPRIL MALEATE 10 MG TABLET 20 MG PO (08:53)
[2019-12-23] MEDS: POTASSIUM CHLORIDE 20 MEQ PACKET (FOR LIQUID) 40 MEQ PO (08:53)
[2019-12-23] MEDS: FLUTICASONE PROPIONATE 0.05% NA SPR 16 GM BTL (*BKC) 2 SPRAY NASAL (08:53)
[2019-12-23 08:54] VITALS: RESP 16; O2SAT 96
[2019-12-23] MEDS: PANTOPRAZOLE 40 MG TABLET PO (08:54)
[2019-12-23] MEDS: PRAVASTATIN SODIUM 20 MG TABLET 40 MG PO (08:54)
[2019-12-23 14:00] VITALS: BP 150/94; PULSE 68; RESP 18; TEMP 36.4
--- NOTE | 2019-12-23 16:43 | PM.DS ---
DS: Admitting Diagnosis Admitting Diagnosis Admitting Diagnosis: Urinary tract infection, site not specified DS: Discharge Diagnosis Discharge Diagnosis (1) Complicated UTI (urinary tract infection): Code(s): N39.0 - Urinary tract infection, site not specified Status: Acute Assessment and Plan: (1) Complicated UTI (urinary tract infection): Code(s): N39.0 - Urinary tract infection, site not specified Status: Acute Assessment and Plan: Secondary to self catheterizing. Admit to med-surg, Continue IV antibiotics. Perkins catheter. Urine culture pending. 12/22/19 12:04 Secondary to self catheterizing. Admit to med-surg, Continue IV antibiotics. Perkins catheter. Urine culture pending. 12/20/19 16:52 patient is 79 year with history of BPH and had been seen urology was recently diagnosed with atonic bladder and was instructed to do the self catheterization which patient had been doing however he presented emergency depart with lower abdominal feverish nausea or vomiting, patient is seen by Urology team, placed the patient on Perkins catheter, patient is septic, urine culture is growing Morganella morganii sensitive to Rocephin will continue, will treat with IV antibiotics total of 4/7 day, patient still complains of abdominal but denies any fever or chills at the present time. will have a PT OT evaluate the patient (2) Severe sepsis: Code(s): A41.9 - Sepsis, unspecified organism; R65.20 - Severe sepsis without septic shock Status: Acute Assessment and Plan: (2) Severe sepsis: Code(s): A41.9 - Sepsis, unspecified organism; R65.20 - Severe sepsis without septic shock Status: Acute Assessment and Plan: Source of sepsis appear to be urinary. Continue IV antibiotics. Light IV hydration overnight. Check reflex lactic acid. Blood and urine cultures pending. (3) Leukocytosis: Qualifiers: Leukocytosis type: unspecified Qualified Code(s): D72.829 - Elevated white blood cell count, unspecified Code(s): D72.829 - Elevated white blood cell count, unspecified Status: Acute Assessment and Plan: (3) Leukocytosis: Qualifiers: Leukocytosis type: unspecified Qualified Code(s): D72.829 - Elevated white blood cell count, unspecified Code(s): D72.829 - Elevated white blood cell count, unspecified Status: Acute Assessment and Plan: secondary to sepsis and UTI monitor CBCd. Continue PPI therapy (4) Hyperlipidemia: Qualifiers: Hyperlipidemia type: unspecified Qualified Code(s): E78.5 - Hyperlipidemia, unspecified Code(s): E78.5 - Hyperlipidemia, unspecified Status: Chronic Assessment and Plan: (4) Hyperlipidemia: Qualifiers: Hyperlipidemia type: unspecified Qualified Code(s): E78.5 - Hyperlipidemia, unspecified Code(s): DS: Summary Hospital Course Reason for hospitalization: Chief complaint: severe sepsis, UTI Narrative: This is a 79 year old male who just started to self catheterize two days ago secondary to chronic urinary retention and presented to the hospital with a complaint of increasing confusion and fever this evening. The patient has had over a month of urinary retention and previously had an indwelling Perkins catheter. Urology gave him the option of a permanent urinary catheter vs. self catheterizing. 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 Associated symptoms include dysuria, urinary frequency, hematuria, and foul smelling urine. On arrival to the ER the patient also complained of right lower quadrant pain. CT abd pelvis was obtained which demonstrated diffuse bladder wall thickening with perivesical fatty infiltration, an enlarged prostate gland, and miild left hydroureteronephrosis. The patient was also found to be septic with tachycardia, leukocytosis, tachy
== END 2019-12-23 18:15 | disposition home or self-care (01) | DRG 698 ==
LOC: ANHED 21:32 → ANH3MED 12-20 04:21
PROVIDERS: Admitting Provider Family Medicine; Emergency Provider General Practice; PCP Internal Medicine; Visit Provider Family Medicine
DX: T83.518A Infection and inflammatory reaction due to other urinary catheter, initial encounter (principal); A41.9 Sepsis, unspecified organism; R65.20 Severe sepsis without septic shock; N39.0 Urinary tract infection, site not specified; N13.30 Unspecified hydronephrosis; E78.5 Hyperlipidemia, unspecified; K21.9 Gastro-esophageal reflux disease without esophagitis; I10 Essential (primary) hypertension; N40.0 Benign prostatic hyperplasia without lower urinary tract symptoms; N20.0 Calculus of kidney; N31.2 Flaccid neuropathic bladder, not elsewhere classified
CPT/HCPCS: 36415; 70450; 71045; 74177; 76775; 80048; 80053; 81001; 83605; 85025; 85610; 85730; 86140; 87040; 87077; 87086; 87088; 87186; 96365; 96375; 99285; A9270; C1751; J0131; J0696; J7030; Q9967

== ENCOUNTER 2019-12-25 14:18 | Outpatient (RCR) | payer OTHER, SELFPAY ==
--- NOTE | 2019-12-24 16:27 | PC.NURSE ---
22 L wrist IV left in per Dr. Rendon's order, okayed to use again tomorrow 12/25/2019 as long as IV is still working. Instructed patient and to leave dressing intact.
[2019-12-25 14:44] VITALS: BP 121/77; PULSE 66; RESP 12; TEMP 36.9; O2SAT 99
[2019-12-25 15:22] VITALS: BP 131/77; PULSE 65; RESP 17; O2SAT 97
== END 2020-03-23 23:59 | disposition home or self-care (01) ==
LOC: ANHCPCTRAN 14:18
PROVIDERS: PCP Internal Medicine; Visit Provider Family Medicine
DX: N39.0 Urinary tract infection, site not specified (principal)
CPT/HCPCS: 96365; J0696

== ENCOUNTER 2019-12-31 01:14 | Outpatient (CLI) | payer OTHER, SELFPAY ==
[2019-12-31 18:35] LABS: SARS-CoV-2 RNA PCR Negative
== END 2019-12-31 01:15 | disposition home or self-care (01) ==
LOC: ANHCOVIDDT 01:15
PROVIDERS: PCP Internal Medicine; Visit Provider Urology
DX: Z01.812 Encounter for preprocedural laboratory examination (principal); Z20.828 Contact with and (suspected) exposure to other viral communicable diseases
CPT/HCPCS: 87635; C9803; U0003

== ENCOUNTER 2019-12-31 10:38 | Outpatient (CLI) | payer OTHER, SELFPAY ==
--- NOTE | 2019-12-31 10:40 | ECG_ITS ---
Measurements Intervals [place] Rate: 62 P: 36 DE: 225 QRS: 1 QRSD: 91 T: 38 QT: 398 QTc: 405 Interpretive Statements SINUS RHYTHM WITH FIRST DEGREE AV BLOCK BASELINE ARTIFACT- I, III, AVR, AVL, AVF ABNORMAL ECG Electronically Signed On 12-31-2019 10:56:26 CDT by Arvind Jacobsen D.O.
== END 2019-12-31 10:39 | disposition home or self-care (01) ==
PROVIDERS: PCP Internal Medicine; Visit Provider Urology
DX: Z01.810 Encounter for preprocedural cardiovascular examination (principal); I10 Essential (primary) hypertension; I44.0 Atrioventricular block, first degree
CPT/HCPCS: 93005

== ENCOUNTER 2020-01-02 01:29 | Day surgery (SDC) | payer OTHER, SELFPAY ==
[2019-12-30 16:18] VITALS: BMI 29.0
--- NOTE | 2019-12-31 07:32 | PM.IMHP ---
H&P: HPI History of Present Illness Date/Time: 12/31/19 07:32 Chief complaint: acute rentention of urine Narrative: Hermes Killian is a 79 year old male who is status post TURP 12 years ago, recently re-presented with recurring urinary retention. He has failed voiding trials while Flomax. Recent urodynamics show marked narrowing in with a maximum pressure of 17 cm water. Recent cystoscopy shows moderate regrowth of prostatic tissue. After discussion of therapeutic options he elected for a repeat TURP. He is aware of the potential for persistent retention postoperatively. Review of Systems Cardiovascular: Cardiovascular: Denies chest pain, Denies lightheadedness, Denies palpitations and Denies dyspnea Respiratory: Respiratory: Denies dyspnea Gastrointestinal: Gastrointestinal: Denies diarrhea, Denies nausea and Denies vomiting Genitourinary: Genitourinary: Denies hematuria and Denies dysuria Endocrine: Endocrine: Denies palpitations PMFSH Past Medical History Medical History Diverticulitis Hyperlipidemia Hypertension Nephrolithiasis Pneumonia Surgical History Surgical History History of prostate surgery Previous back surgery Family History Family History Sibling Hypertension Malignant neoplasm of prostate Patient's brother is Mother Family history of malignant neoplasm of breast in first degree relative Family history of malignant neoplasm of urinary bladder Patient's mother is Father Patient's father is Social History Social History Smoking status: Never smoker Alcohol intake: never Substance use: never Substance use type: does not use Gender identity (if verbalized by the patient): Male Spiritual care concerns: No Meds Home Medications and Allergies Home Medications Medication Instructions Recorded Confirmed Type fluticasone propionate 50 2 spray NASAL DAILY #18.2 ml 10/10/19 12/30/19 Rx mcg/actuation nasal spray,suspension pravastatin 40 mg tablet 40 mg PO DAILY #90 tablet 11/11/19 12/30/19 Rx tamsulosin [Flomax] 0.4 mg PO HS 30 Days #30 cap 11/16/19 12/30/19 Rx enalapril maleate 20 mg PO DAILY 12/19/19 12/30/19 History pantoprazole 40 mg PO DAILY 12/19/19 12/30/19 History alprazolam 0.5 mg PO BID PRN 12/30/19 12/30/19 History cholecalciferol (vitamin D3) 125 mcg PO DAILY 12/30/19 12/30/19 History cyanocobalamin (vitamin B-12) 5,000 mcg PO DAILY 12/30/19 12/30/19 History multivitamin,ln-fxsq-fdetjsdi 1 tablet PO DAILY 12/30/19 12/30/19 History [Complete Multivitamin] omega 1-mnu-bqu-fish oil [Fish Oil] 1 cap PO DAILY 12/30/19 12/30/19 History Allergies Allergy/AdvReac Type Severity Reaction Status Date / Time morphine Allergy Severe Hypotension Verified 12/30/19 15:32 Exam Const: General: no acute distress Resp: Effort & Inspection: normal respiratory effort GI: Inspection: non-distended GI Palp: No abdominal tenderness and No Guarding due to palpation present (GI) Auscultation: normal bowel sounds Assessment and Plan Assessment and plan (1) BPH (benign prostatic hyperplasia): Code(s): N40.0 - Benign prostatic hyperplasia without lower urinary tract symptoms Status: Acute Assessment and Plan: TURP
[2020-01-02] VITALS (15 sets, daily range): BP systolic 120–149; BP diastolic 60–80; PULSE 66–96; RESP 9–20; TEMP 36.2–36.9; O2SAT 96–100
--- NOTE | 2020-01-02 06:52 | WPDHPUPDATE1 ---
History and Physical Update Update Date/Time: 01/02/20 06:52 History and Physical has been reviewed, including an updated exam of the patient. There are NO changes in the patient's condition. Risks, benefits, and alternatives have been discussed and questions answered. Patient agrees to proceed with procedure.
[2020-01-02] MEDS: LACTATED RINGERS 1,000 ML 30 ML IV CONT ×2 (08:13→10:20)
--- NOTE | 2020-01-02 09:10 | WPDANESEPPF ---
Anes - Initial Pre Proc Eval Procedure: Operation Date: 01/02/20 09:45 Proposed Procedures p Trans Urethral Resection Prostate - Joel Lopez MD Date/Time: 01/02/20 09:10 Surgeon: Joel Lopez MD Pre Op Diagnosis: acute rentention of urine Patient Data Age: 79 Gender: M Height: 5 ft 7 in Weight: 82.9 kg Last Vital Signs Temp 98.1 F 01/02/20 08:24 Pulse 81 01/02/20 08:24 Resp 16 01/02/20 08:24 BP 120/71 01/02/20 08:24 Pulse Ox 99 01/02/20 08:24 Allergies Allergy/AdvReac Type Severity Reaction Status Date / Time morphine Allergy Severe Hypotension Verified 01/02/20 07:50 Home Medications Medication Instructions Recorded Confirmed Type fluticasone propionate 50 2 spray NASAL DAILY #18.2 ml 10/10/19 01/02/20 Rx mcg/actuation nasal spray,suspension pravastatin 40 mg tablet 40 mg PO DAILY #90 tablet 11/11/19 01/02/20 Rx tamsulosin [Flomax] 0.4 mg PO HS 30 Days #30 cap 11/16/19 01/02/20 Rx enalapril maleate 20 mg PO DAILY 12/19/19 01/02/20 History pantoprazole 40 mg PO DAILY 12/19/19 01/02/20 History alprazolam 0.5 mg PO BID PRN 12/30/19 01/02/20 History cholecalciferol (vitamin D3) 125 mcg PO DAILY 12/30/19 01/02/20 History cyanocobalamin (vitamin B-12) 5,000 mcg PO DAILY 12/30/19 01/02/20 History multivitamin,nq-yiuh-gvzgpumx 1 tablet PO DAILY 12/30/19 01/02/20 History [Complete Multivitamin] omega 8-ikb-xce-fish oil [Fish Oil] 1 cap PO DAILY 12/30/19 01/02/20 History Patient hx anesthesia problems: none Family hx anesthesia problems: none PMFSH Past Medical History Medical History Diverticulitis Hyperlipidemia Hypertension Nephrolithiasis Pneumonia Surgical History Surgical History History of prostate surgery Previous back surgery Family History Family History Sibling Hypertension Malignant neoplasm of prostate Patient's brother is Mother Family history of malignant neoplasm of breast in first degree relative Family history of malignant neoplasm of urinary bladder Patient's mother is Father Patient's father is Social History Social History Smoking status: Never smoker Alcohol intake: never Substance use: never Substance use type: does not use Living arrangements: with family Gender identity (if verbalized by the patient): Male Spiritual care concerns: No Anes - Eval Final PreProcedure Day of Procedure 01/02/20 09:10 Patient weight: overweight Heart: regular rate and rhythm Lungs: clear to auscultation Airway: Mallampati scale class II Neurological: alert and oriented Last oral intake: >/= 8 hours ASA classification: III Emergent: no Anesthetic plan: proceed Anesthesia type and monitoring: general LMA and standard monitoring Informed Consent: The patient's anesthetic plan and its attendant risks and benefits were discussed with the patient/family/POA. Questions were solicited and answers provided to the satisfaction of the patient/family/POA.
[2020-01-02] MEDS: ceFAZolin 2 GM/D5W 50 ML 2 GM/50 ML BAG IVPB (09:28)
--- NOTE | 2020-01-02 10:30 | PM.PROC ---
Procedure Note - Detailed Date of procedure: 01/02/20 Pre-op diagnosis: acute rentention of urine Post-op diagnosis: same Procedure performed: TURP Description of procedure: The patient was brought to the operative suite where he is prepped and draped in routine sterile fashion while in the dorsal lithotomy position after the uneventful induction of a general LMA anesthetic. A 27 [place] resectoscope sheath was placed into his bladder. He had no urethral strictures. The patient had trilobar hyperplasia with a small median lobe. The bladder itself was endoscopically normal, showing no mucosal hyperemia, intravesical neoplasm or foreign bodies. There was a single, orthotopic ureteral orifice bilaterally. These orifices were identified and preserved throughout the remainder of the procedure. Attention was first turned to resection of the median lobe. This resection was undertaken from the bladder neck to the verumontanum and carried out until the transverse fibers of the bladder neck were identified. The left lateral lobe was then resected starting at the 6 o'clock position, working counter clockwise to the 12 o'clock position. Again, resection was carried out from the bladder neck to the verumontanum until the capsular fibers of the prostate were identified. The right lateral lobe was resected in a similar fashion starting at the 6 o'clock position working clockwise to the 12 o'clock position and carried out until the capsular fibers of the prostate were identified. Apical tissue was then circumferentially resected. All chips were evacuated from the bladder using an [email or web address] evacuator. Hemostasis was obtained with electric cautery. The ureteral orifices were again inspected and found to be without injury. Estimated blood loss throughout this procedure was 50cc. The patient was taken to recovery room having tolerated this well. Anesthesia: GLMA Surgeon: Joel Lopez MD Estimated blood loss (mL): 50 Drains: Yes (24F hematuria catheter) Packing: No Pathology: yes Complications: No immediate complications Condition: stable Disposition: PACU
[2020-01-02] MEDS: DEXTROSE 5%/LACTATED RINGERS 1,000 ML 125 ML IV CONT (12:59)
[2020-01-02] MEDS: DOCUSATE SODIUM 100 MG CAPSULE PO (16:27)
[2020-01-02] MEDS: PANTOPRAZOLE 40 MG TABLET PO (16:27)
[2020-01-02] MEDS: PRAVASTATIN SODIUM 20 MG TABLET 40 MG PO (16:27)
[2020-01-02] MEDS: ACETAMINOPHEN 325 MG TABLET 650 MG PO (18:25)
[2020-01-03 04:00] VITALS: BP 118/67; PULSE 80; RESP 18; TEMP 36.8; O2SAT 98
[2020-01-03 05:35] LABS: Hematocrit 37.2 % (42.0-52.0); Hemoglobin 12.1 g/dL (14.0-18.0)
[2020-01-03 05:50] LABS: Anion Gap 8 mmol/L (8-16); Blood Urea Nitrogen 10 mg/dL (9-20); Carbon Dioxide 26 mmol/L (22-30); Chloride 103 mmol/L (98-107); Estimated CRCL calculation 69 ml/min; Estimated Glomerular Filt Rate > 60; Glucose 107 mg/dL (75-110); Sodium 137 mmol/L (137-145)
--- NOTE | 2020-01-03 08:52 | WPDUROPN2 ---
Progress Note: A&P Assessment and Plan (1) BPH (benign prostatic hyperplasia): Code(s): N40.0 - Benign prostatic hyperplasia without lower urinary tract symptoms Status: Acute Assessment and Plan: Doing well POD #1 s/p TURP. Voiding trial later this morning if urine remains clear. Subjective Subjective Date/Time Seen: 01/03/20 08:52 POD #1 s/p TURP - comfortable, no complaints Review of Systems Cardiovascular: Cardiovascular: Denies chest pain, Denies lightheadedness, Denies palpitations and Denies dyspnea Respiratory: Respiratory: Denies dyspnea Gastrointestinal: Gastrointestinal: Denies diarrhea, Denies nausea and Denies vomiting Genitourinary: Genitourinary: Denies hematuria and Denies dysuria Endocrine: Endocrine: Denies palpitations Exam Const: General: no acute distress Resp: Effort & Inspection: normal respiratory effort GI: Inspection: non-distended GI Palp: No abdominal tenderness and No Guarding due to palpation present (GI) Auscultation: normal bowel sounds Urinary Catheter: Urinary Catheter: patent and draining and urine clear Objective Data Vital Signs Vital Signs: Vital Signs - 24 hr 01/02/20 10:20 01/02/20 10:35 01/02/20 10:50 Temperature 97.6 F Pulse Rate 82 77 80 Respiratory Rate 10 L 13 9 L Blood Pressure 123/70 120/77 127/75 Pulse Oximetry 100 100 100 01/02/20 11:05 01/02/20 11:20 01/02/20 11:35 Temperature Pulse Rate 78 79 75 Respiratory Rate 12 10 L 10 L Blood Pressure 129/78 130/75 124/78 Pulse Oximetry 99 97 100 01/02/20 11:50 01/02/20 12:15 01/02/20 12:30 Temperature 97.2 F L 97.7 F Pulse Rate 75 96 89 Respiratory Rate 10 L 18 20 Blood Pressure 128/80 149/78 H 138/75 Pulse Oximetry 98 97 100 01/02/20 13:00 01/02/20 14:00 01/02/20 18:00 Temperature 97.7 F 97.8 F 97.7 F Pulse Rate 87 87 95 Respiratory Rate 18 18 18 Blood Pressure 131/66 139/67 125/60 Pulse Oximetry 97 98 99 01/02/20 20:00 01/02/20 23:51 01/03/20 04:00 Temperature 97.6 F 98.5 F 98.2 F Pulse Rate 85 66 80 Respiratory Rate 20 18 18 Blood Pressure 128/65 125/70 118/67 Pulse Oximetry 96 98 98 Intake/Output Intake/Output: Intake & Output 12/31/19 01/01/20 01/02/20 01/03/20 23:59 23:59 23:59 23:59 Intake Total 2261 300 Output Total 6000 Balance -3739 300 Meds/Results Medications: Active Medications Generic Name Dose Route Start Last Admin Trade Name Freq PRN Reason Stop Dose Admin Acetaminophen 650 mg 01/02/20 18:20 01/02/20 18:25 Tylenol Tablet PO 650 mg Q6H PRN Administration Mild Pain (1-3) or Fever Alprazolam 0.5 mg 01/02/20 12:05 Xanax PO BID PRN Anxiety Cephalexin HCl 500 mg 01/03/20 09:00 Keflex Capsule PO QID SINDY Docusate Sodium 100 mg 01/02/20 17:00 01/02/20 16:27 Colace Capsule PO 100 mg BID [facility] Administration Enalapril Maleate 20 mg 01/03/20 09:00 Vasotec PO DAILY [facility] Fluticasone Propionate 2 spray 01/03/20 09:00 Flonase 0.05% Nasal [place] NASAL DAILY [facility] Hyoscyamine 0.125 mg 01/02/20 12:05 Levsin Tablet SUBLINGUAL Q6H PRN Bladder Spasm Naloxone HCl 0.1 mg 01/02/20 12:05 Narcan IV PUSH Q2M PRN Opiate Reversal Ondansetron HCl 4 mg 01/02/20 12:05 Zofran Inj IV PUSH Q12H PRN Nausea And Vomiting Pantoprazole Sodium 40 mg 01/02/20 13:00 01/02/20 16:27 Protonix PO 40 mg DAILY [facility] Administration Pravastatin Sodium 40 mg 01/02/20 13:00 01/02/20 16:27 Pravastatin Sodium PO 40 mg DAILY [facility] Administration Labs Labs: Laboratory Results - last 24 hr 01/03/20 01/03/20 05:03 05:03 Hgb 12.1 L Hct 37.2 L Sodium 137 Potassium 4.0 Chloride 103 Carbon Dioxide 26 Anion Gap 8 BUN 10 Creatinine 0.70 Estim Creat Clear Calc 69 Estimated GFR > 60 Glucose 107 Calcium 9.0
[2020-01-03] MEDS: PRAVASTATIN SODIUM 20 MG TABLET 40 MG PO (09:13)
[2020-01-03] MEDS: FLUTICASONE PROPIONATE 0.05% NA SPR 16 GM BTL (*BKC) 2 SPRAY NASAL (09:14)
[2020-01-03] MEDS: PANTOPRAZOLE 40 MG TABLET PO (09:14)
[2020-01-03] MEDS: DOCUSATE SODIUM 100 MG CAPSULE PO (09:14)
[2020-01-03] MEDS: ENALAPRIL MALEATE 10 MG TABLET 20 MG PO (09:14)
[2020-01-03] MEDS: CEPHALEXIN 500 MG CAPSULE PO ×2 (09:14→12:55)
[2020-01-03 10:00] VITALS: BP 120/58; PULSE 72; RESP 18; TEMP 36.4; O2SAT 100
--- NOTE | 2020-01-03 10:41 | WPDANESPN ---
Anes - Prog Note Post-Op Date/Time: 01/03/20 09:41 Cardiovascular status: normal Respiratory status: normal Airway patency: baseline Mental status: baseline Post-Op hydration status: normal Vital Signs: Last Vital Signs Temp 36.4 C 01/03/20 10:00 Pulse 72 01/03/20 10:00 Resp 18 01/03/20 10:00 BP 120/58 L 01/03/20 10:00 Pulse Ox 100 01/03/20 10:00 I/O: Intake & Output 01/02/20 01/03/20 01/03/20 23:59 07:59 15:59 Intake Total 881 300 240 Output Total 1350 Balance -469 300 240 Laboratory Tests 01/03/20 05:03 01/03/20 05:03 01/03/20 01/03/20 05:03 05:03 Hgb 12.1 L Hct 37.2 L Sodium 137 Potassium 4.0 Chloride 103 Carbon Dioxide 26 Anion Gap 8 BUN 10 Creatinine 0.70 Estim Creat Clear Calc 69 Estimated GFR > 60 Glucose 107 Calcium 9.0 Post-procedural complaints: none Patient Feedback: Patient satisfied with anesthetic care.
[2020-01-03 14:00] VITALS: BP 120/67; PULSE 81; RESP 18; TEMP 36.5; O2SAT 99
== END 2020-01-03 14:10 | disposition home or self-care (01) ==
LOC: ANHSURGERY 07:39 → ANH2MED 15:13
PROVIDERS: PCP Internal Medicine; Visit Provider Urology
PROC: 0VT08ZZ Resection of Prostate, Via Natural or Artificial Opening Endoscopic (ICD-10-PCS; CPT 52601; principal; 2020-01-02 09:45)
DX: N40.1 Benign prostatic hyperplasia with lower urinary tract symptoms (principal); R33.8 Other retention of urine; N41.1 Chronic prostatitis; I10 Essential (primary) hypertension; E78.5 Hyperlipidemia, unspecified
CPT/HCPCS: 52630; 36415; 80048; 85014; 85018; 87635; 88305; 93005; A9270; C1758; C9803; J0690; J1100; J2405; J2704; J3010; J7120; J7121; U0003

== ENCOUNTER 2020-01-04 04:56 | Observation (INO) | payer OTHER, SELFPAY ==
--- NOTE | ~2020-01-04 | CT_ITS ---
EXAMINATION: CT brain wo con DATE: 01/04/2020 06:11 INDICATION: Weakness. TECHNIQUE: Computed tomography (CT) of the head was performed without intravenous contrast. The mA wa s adjusted according to patient size. Iterative reconstruction technique was employed. The dose-lengt h product was 605.33 mGy-cm. COMPARISON: Head CT 12/21/2019 FINDINGS: There is diffuse brain volume loss. There are scattered areas of low attenuation in the cer ebral white matter, which is within normal limits for the patient's age. There is no intracranial hem orrhage, acute infarction, or abnormal intracranial mass lesion. The ventricles are normal in size. T here are likely changes of ocular lens replacement surgeries. There is mild mucosal thickening in the ethmoid sinuses. There is a small left mastoid effusion. IMPRESSION: 1. Normal aging brain. Reviewed, dictated and finalized at location A. IMPRESSION: 1. Normal aging brain.
--- NOTE | ~2020-01-04 | CT_ITS ---
EXAMINATION: CTA chest PE protocol DATE: 01/04/2020 06:11 INDICATION: Syncope. TECHNIQUE: Computed tomography angiography (CTA) of the chest was performed with 100 mL Omnipaque-350 intravenous contrast timed to evaluate the pulmonary arteries. Coronal maximum intensity projection 3D-reconstructions were created by the technologist. Automated exposure control and iterative reconst ruction technique were employed. The dose-length product was 886.80 mGy-cm. COMPARISON: CT abdomen and pelvis 12/19/2019 FINDINGS: A calcified right lung nodule is consistent with old granulomatous disease. There is a 3 mm nodule in right upper lobe, likely benign. No pleural effusion. The heart size is normal. There are coronary artery calcifications. No pericardial effusion. There is no pulmonary embolus. There is a sm all sliding hiatal hernia. 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 IMPRESSION: 1. No pulmonary embolus. 2. Small sliding hiatal hernia. Reviewed, dictated and finalized at location A.
[2020-01-04 04:56] VITALS: BP 151/84; PULSE 66; RESP 12; TEMP 36.1; O2SAT 99
--- NOTE | 2020-01-04 04:57 | ECG_ITS ---
Measurements Intervals [place] Rate: 74 P: 34 TX: 207 QRS: 17 QRSD: 93 T: 60 QT: 377 QTc: 418 Interpretive Statements SINUS RHYTHM EARLY PRECORDIAL R/S TRANSITION BASELINE ARTIFACT- I, II, III, AVL, AVF BORDERLINE ECG Electronically Signed On 01-04-2020 7:45:46 CDT by Arvind Jacobsen D.O.
--- NOTE | 2020-01-04 05:04 | ED.WEAKNESS ---
HPI - Weakness General Chief complaint: Weakness Stated complaint: WEAKNESS Time Seen by Provider: 01/04/20 05:04 Source: patient and EMS Mode of arrival: EMS Limitations: no limitations History of Present Illness HPI Narrative: Patient has a history of hypertension, BPH, status post TURP on January [address] Lopez, who presents for evaluation of weakness. Patient states that he awakened to go to the restroom this morning, when ambulating to the restroom felt very weak, denied any nausea or vomiting, no chest pain. Patient sat down to urinate, and had difficulty standing. He does not believe he passed out. Patient's called EMS, patient was transported to our facility. Blood glucose was appropriate. Vital signs stable during transport. Patient arrives denying any current pain, denying fever or chills, cough or shortness of breath. Patient states he feels weak all over. He denies any complications following surgery. He reports some hematuria without dysuria. He denies urinary retention or abdominal pain or distention. Per at bedside, she states she found him unconscious and unresponsive sitting on the toilet in the bathroom after she checked on him, noting he had been in the bathroom awhile. She states he did not respond to her despite her shaking him and trying to wake him up. She called 911, and she states the patient started to awaken slowly. Related Data Home Medications Medication Instructions Recorded Confirmed enalapril maleate 20 mg PO DAILY 12/19/19 01/02/20 pantoprazole 40 mg PO DAILY 12/19/19 01/02/20 Complete Multivitamin 1 tablet PO DAILY 12/30/19 01/02/20 alprazolam 0.5 mg PO BID PRN 12/30/19 01/02/20 cholecalciferol (vitamin D3) 125 mcg PO DAILY 12/30/19 01/02/20 cyanocobalamin (vitamin B-12) 5,000 mcg PO DAILY 12/30/19 01/02/20 omega 1-hhl-bdj-fish oil [Fish Oil] 1 cap PO DAILY 12/30/19 01/02/20 Allergies Allergy/AdvReac Type Severity Reaction Status Date / Time morphine Allergy Severe Hypotension Verified 01/02/20 12:39 Review of Systems Review of Systems: Narrative: CONSTITUTIONAL: Denies fever, chills, or sweats. EYES: Denies visual changes, redness, or discharge. ENT: Denies rhinorrhea, congestion, sore throat, or otalgia. CARDIOVASCULAR: Denies chest pain, palpitations, or edema. RESPIRATORY: Denies cough or dyspnea. GASTROINTESTINAL: Denies abdominal pain, nausea, vomiting, or diarrhea. GENITOURINARY: Denies dysuria, reports hematuria SKIN: Denies rash or itching. MUSCULOSKELETAL: Denies back pain, joint pain, or myalgia. NEUROLOGIC: Denies headache, numbness, reports nonfocal weakness PMFSH Past Medical History Medical History Diverticulitis Hyperlipidemia Hypertension Nephrolithiasis Pneumonia Surgical History Surgical History History of prostate surgery Previous back surgery Social History Social History Smoking status: Never smoker Alcohol intake: never Substance use: never Substance use type: does not use Gender identity (if verbalized by the patient): Male Spiritual care concerns: No Exam Narrative: Exam Narrative: GENERAL: Awake, alert, conversant HEAD: Normocephalic, atraumatic. EYES: PERRLA and EOMI. ENT: Nares clear, no rhinorrhea or epistaxis. Mucous membranes moist. NECK: Supple. CHEST: No respiratory distress, breathing even and non labored HEART: Regular rate, sinus rhythm ABDOMEN:Non distended, non tender, no suprapubic tenderness EXTREMITIES: Normal range of motion. No edema. SKIN: Warm, dry, no rash. NEURO:No focal deficits. Alert and oriented x3 Course Vital Signs Vital signs: Vital Signs Temperature 36.1 C L 01/04/20 04:56 Pulse Rate 66 01/04/20 04:56 Respiratory Rate 12 01/04/20 04:56 Blood Pressure 151/84 H 01/04/20 04:56 Pulse Oximetry 99 01/04/20
[2020-01-04] MEDS: SODIUM CHLORIDE 0.9% IV 1,000 ML 999 ML IV CONT (05:22)
[2020-01-04 05:33] LABS: Basophils Absolute Auto 0.1 K/mm3 (0.0-0.1); Basophils Percent Auto 0.6 % (0.2-1.2); Eosinophils Absolute Auto 0.2 K/mm3 (0-0.3); Hematocrit 37.1 % (42.0-52.0); Hemoglobin 11.9 g/dL (14.0-18.0); Immature Granulocyte Absolute 0.05 K/mm3 (0.00-0.031); Immature Granulocyte Percent A 0.5 % (0-0.5); Lymphocytes Absolute Auto 1.66 K/mm3 (0.9-3.2); Lymphocytes Percent Auto 17.8 % (18.3-44.2); Mean Corpuscular HGB Conc 32.1 g/dl (32-36); Mean Corpuscular Hemoglobin 30.8 pg (26-34); Mean Corpuscular Volume 96.1 fl (80-100); Mean Platelet Volume 9.3 fl (7.4-10.4); Monocytes Absolute Auto 0.8 K/mm3 (0.1-0.6); Monocytes Percent Auto 8.8 % (2.6-8.5); Neutrophils Absolute Auto 6.6 K/mm3 (1.3-6.7); Neutrophils Percent Auto 70.3 % (45.5-73.1); Platelet Count Result 312 k/mm3 (150-375); Red Blood Count 3.86 M/mm3 (4.6-6.20); Red Cell Distribution Width 13.7 % (11.5-14.5); White Blood Count 9.3 K/mm3 (4.5-10.0)
[2020-01-04 05:46] LABS: INR 1.1; Partial Thromboplastin Time 23.9 SECONDS (22.3-36.8); Prothrombin Time 13.5 Seconds (11.1-14.7)
[2020-01-04 05:47] LABS: Lactic Acid Reflex 1.6 mmol/L (0.7-2.1)
[2020-01-04 05:49] LABS: Alanine Aminotransferase 19 U/L (4-50); Alkaline Phosphatase 54 U/L (38-126); Anion Gap 8 mmol/L (8-16); Aspartate Amino Transferase 27 U/L (17-59); Bilirubin,Total 0.6 mg/dL (0.2-1.3); Blood Urea Nitrogen 14 mg/dL (9-20); Calcium 8.9 mg/dL (8.4-10.2); Carbon Dioxide 25 mmol/L (22-30); Chloride 102 mmol/L (98-107); Estimated CRCL calculation 61 ml/min; Estimated Glomerular Filt Rate > 60; Glucose 101 mg/dL (75-110); Potassium 4.1 mmol/L (3.4-5.0); Sodium 135 mmol/L (137-145)
--- NOTE | 2020-01-04 05:49 | PC.NURSE ---
pt not able to urinate at this time. urinal at bedside.
[2020-01-04 06:01] LABS: Troponin I < 0.012 ng/mL (0.000-0.034)
[2020-01-04 06:40] LABS: Add Urine Microscopic? YES; Appearance Urine Cloudy (Clear); Bacteria Urine Trace /hpf; Bilirubin Urine Negative (Negative); Blood Urine 3+ (Negative); Color Urine Red (Yellow); Glucose Urine UA Negative (Negative); Ketones Urine Negative (Negative); Leukocyte Esterase Ur 2+ LEU/UL (Negative); Nitrate Urine Negative (Negative); Protein Urine 2+ mg/dL (Negative); RBC Urine >75 /hpf (0-2); Specific Grav Ur 1.023 (1.001-1.035); Urobilinogen Urine Negative mg/dL (<2.0); WBC Urine >75 /hpf
[2020-01-04] MEDS: CIPROFLOXACIN 500 MG TAB PO ×2 (07:14→17:37)
--- NOTE | 2020-01-04 07:38 | PC.NURSE ---
Called to give report on Pt. Spoke with Shira and was told that nurse hasnt seen SBAR yet and will call me back.
--- NOTE | 2020-01-04 08:00 | PC.NURSE ---
This patient, Hermes Killian, was admitted to [facility] Surg Room 321-01. Patient/family oriented to hospital policies and general routines including ID bracelet, bed and alarms, visiting hours, pain management, procedures, bathroom and other care routines, personal items, smoking policy, room service/diet, and visiting hours. Valuables list has been completed. Information on how to activate the Rapid Response Team has been discussed. Patient/Family are encouraged to report perceived risks to care and to ask questions if they do not understand what they are told or what they should do.
[2020-01-04 09:15] VITALS: BMI 29.0
[2020-01-04 11:17] LABS: Troponin I < 0.012 ng/mL (0.000-0.034)
[2020-01-04 13:04] VITALS: PULSE 104
[2020-01-04 14:00] VITALS: BP 113/65; PULSE 74; RESP 16; TEMP 36.6; O2SAT 95
[2020-01-04] MEDS: SODIUM CHLORIDE 0.9% IV 1,000 ML 70 ML IV CONT (14:27)
--- NOTE | 2020-01-04 15:34 | WPDURCON ---
Assessment and Plan Assessment and plan (1) BPH (benign prostatic hyperplasia): Code(s): N40.0 - Benign prostatic hyperplasia without lower urinary tract symptoms Status: Acute Assessment and Plan: SP TURP and doing OK voiding. Labs OK and feeling better today. No signs of UTI and fo fevers. Hematuria clearing. Will observe. (2) Hematuria: Code(s): R31.9 - Hematuria, unspecified Status: Acute Urology Consult Note HPI Date Seen: 01/04/20 Requesting Physician: Fam Garcia MD Primary Care Provider: Keith Stahl DO Consult Narrative Narrative: Hermes Killian is a 79 year old male SP TURP [address] Lopez. He has had much improved voiding and last night had episode of unresponsiveness with trip to void. Urine has been varying degrees of hematuria since TURP. Stream is strong and no retention. Denies fevers or chills. Feeling better today. Review of Systems Review of Systems: All systems reviewed & are unremarkable except as noted in HPI and below Gastrointestinal: Gastrointestinal: Denies abdominal pain, Denies bloating and Denies change in bowel habits Genitourinary: Genitourinary: Reports as per HPI, Reports hematuria, Denies flank pain and Denies urinary incontinence PMFSH Past Medical History Medical History (Updated 01/04/20 @ 15:39 by Finn Dale MD) Diverticulitis Hyperlipidemia Hypertension Nephrolithiasis Pneumonia Surgical History Surgical History (Updated 01/04/20 @ 15:39 by Finn Dale MD) History of prostate surgery SP TURP for BPH Previous back surgery Social History Social History Smoking status: Never smoker Alcohol intake: never Substance use: never Substance use type: does not use Gender identity (if verbalized by the patient): Male Spiritual care concerns: No Meds Home Medications and Allergies Home Medications Medication Instructions Recorded Confirmed Type enalapril maleate 20 mg PO DAILY 12/19/19 01/04/20 History pantoprazole 40 mg PO DAILY 12/19/19 01/04/20 History Complete Multivitamin 1 tablet PO DAILY 12/30/19 01/04/20 History alprazolam 0.5 mg PO BID PRN 12/30/19 01/04/20 History cholecalciferol (vitamin D3) 125 mcg PO DAILY 12/30/19 01/04/20 History cyanocobalamin (vitamin B-12) 5,000 mcg PO DAILY 12/30/19 01/04/20 History omega 4-fsh-vwx-fish oil [Fish Oil] 1 cap PO DAILY 12/30/19 01/04/20 History ciprofloxacin HCl 500 mg PO Q12H #10 tablet 01/03/20 01/04/20 Rx tramadol 50 mg PO Q6H PRN #20 tablet 01/03/20 01/04/20 Rx fluticasone propionate 2 spray NASAL HS 01/04/20 01/04/20 History pravastatin 40 mg PO HS 01/04/20 01/04/20 History Allergies Allergy/AdvReac Type Severity Reaction Status Date / Time morphine AdvReac Severe Hypotension Verified 01/04/20 13:54 Vital Signs Vital Signs - 24 hr 01/04/20 04:56 Temperature 36.1 C L Pulse Rate 66 Respiratory Rate 12 Blood Pressure 151/84 H Pulse Oximetry 99 Results Labs CBC & Chem 7: 01/04/20 05:19 01/04/20 05:19 Labs: Short CBC 01/04/20 Range/Units 05:19 WBC 9.3 (4.5-10.0) K/mm3 Hgb 11.9 L (14.0-18.0) g/dL Hct 37.1 L (42.0-52.0) % Plt Count 312 (150-375) k/mm3 [facility] 01/04/20 05:19 Sodium 135 L Potassium 4.1 Chloride 102 Carbon Dioxide 25 BUN 14 Creatinine 0.80 Glucose 101 Calcium 8.9 Cardiac Enzymes 01/04/20 01/04/20 Range/Units 05:19 10:35 Troponin I < 0.012 < 0.012 (0.000-0.034) ng/mL Liver Function 01/04/20 Range/Units 05:19 Total Bilirubin 0.6 (0.2-1.3) mg/dL AST 27 (17-59) U/L ALT 19 (4-50) U/L Alkaline Phosphatase 54 (38-126) U/L Albumin 4.0 (3.5-5.1) g/dL Urine 01/04/20 Range/Units 06:27 Urine Color Red H (Yellow) Urine Appearance Cloudy H (Clear) Urine pH 7.0 (5.0-9.0) Ur Specific [place] 1.023 (1.001-1.035) Urine Protein
[2020-01-04 16:00] VITALS: PULSE 96
--- NOTE | 2020-01-04 16:20 | PM.IMPN ---
Progress Note: A&P Assessment and Plan (1) Hematuria: Code(s): R31.9 - Hematuria, unspecified Status: Acute Assessment and Plan: Voiding trail watch labs watch today hopeful discharge tomorrow. hb is 11 hold anticoagulation (2) Syncope and collapse: Code(s): R55 - Syncope and collapse Status: Acute Assessment and Plan: Likely secondary to hematuria and vasovagal response Subjective Date/time seen: 01/04/20 16:20 PROGRESS NOTE IS ACTUALLY HISTORY AND PHYSICAL NOTE Interval history: Hermes Killian is a 79 year old male who is status post TURP 12 years ago, SEEN IN THE ER several times with urinary retention had TURP under Dr KUMAR on 01/01, went home 01/02. Pt sat down to urinate and had large episode of hematuria and passed out. was worried and brought him into ED for evaluation. No other compliants Review of Systems Review of Systems: All systems reviewed & are unremarkable except as noted in HPI and below Genitourinary: Genitourinary: Reports hematuria Comments: SP TURP Exam Const: General: cooperative and healthy appearing; No in distress Nutritional Appearance: overweight Orientation/consciousness: oriented to person HENMT: Head: normal to inspection Resp: Effort & Inspection: no respiratory distress Auscultation: no rhonchi and no wheezes Cardio: Rate: regular rate Rhythm: regular rhythm GI: Inspection: normal to inspection GI Palp: No abdominal tenderness, No Guarding due to palpation present (GI) and No Hepatomegaly present Auscultation: normal bowel sounds Neuro: General: oriented to person Objective Data Vital Signs Vital Signs: Vital Signs - 24 hr 01/04/20 04:56 Temperature 36.1 C L Pulse Rate 66 Respiratory Rate 12 Blood Pressure 151/84 H Pulse Oximetry 99 Intake/Output Intake/Output: Intake & Output 01/01/20 01/02/20 01/03/20 01/04/20 23:59 23:59 23:59 23:59 Intake Total 600 Balance 600 Meds/Results Medications: Active Medications Generic Name Dose Route Start Last Admin Trade Name Freq PRN Reason Stop Dose Admin Acetaminophen 650 mg 01/04/20 06:41 Tylenol Tablet PO Q4H PRN Mild Pain (1-3) or Fever Ciprofloxacin 500 mg 01/04/20 18:00 Cipro Po PO Q12H SINDY Sodium Chloride 1,000 mls @ 70 mls/hr 01/04/20 13:50 01/04/20 14:27 Normal Saline Iv IV CONT 70 mls/hr .[id number] SINDY Administration Radiology Results: ITS Impressions Head CT 01/04/20 07:31 IMPRESSION: 1. Normal aging brain. Chest CTA 01/04/20 08:32 IMPRESSION: 1. No pulmonary embolus. 2. Small sliding hiatal hernia. Labs Labs: Laboratory Results - last 24 hr 01/04/20 01/04/20 01/04/20 05:19 05:19 05:19 WBC 9.3 RBC 3.86 L Hgb 11.9 L Hct 37.1 L MCV 96.1 MCH 30.8 MCHC 32.1 RDW 13.7 Plt Count 312 MPV 9.3 Immature Gran % (Auto) 0.5 Neut % (Auto) 70.3 Lymph % (Auto) 17.8 L [place] % (Auto) 8.8 H Eos % (Auto) 2.0 Baso % (Auto) 0.6 Lymph # (Auto) 1.66 [place] # (Auto) 0.8 H Eos # (Auto) 0.2 Baso # (Auto) 0.1 Abs Immat Gran (auto) 0.05 H Absolute Neuts (auto) 6.6 Absolute Nucleated RBC 0.0 Nucleated RBC % 0.0 PT 13.5 INR 1.1 APTT 23.9 Sodium 135 L Potassium 4.1 Chloride 102 Carbon Dioxide 25 Anion Gap 8 BUN 14 Creatinine 0.80 Estim Creat Clear Calc 61 Estimated GFR > 60 Glucose 101 Lactic Acid Calcium 8.9 Total Bilirubin 0.6 AST 27 ALT 19 Alkaline Phosphatase 54 Troponin I < 0.012 Total Protein 7.0 Albumin 4.0 Urine Color Urine Appearance Urine pH Ur Specific [place] Urine Protein Urine Glucose (UA) Urine Ketones Ur Blood (Man) Urine Nitrate Urine Bilirubin Urine Urobilinogen Leukocyte Esterase Rfl Urine RBC Urine WBC Urine Bacteria 01/04/20 01/04/20 01/04/20 05:19 06:27 10:35 WBC
[2020-01-04 20:00] VITALS: PULSE 105
[2020-01-04] MEDS: PRAVASTATIN SODIUM 20 MG TABLET 40 MG PO (20:40)
[2020-01-04] MEDS: FLUTICASONE PROPIONATE 0.05% NA SPR 16 GM BTL (*BKC) 2 SPRAY NASAL (20:40)
[2020-01-04 22:00] VITALS: BP 134/85; PULSE 85; RESP 16; TEMP 36.8; O2SAT 95
[2020-01-05] VITALS (7 sets, daily range): BP systolic 125–141; BP diastolic 62–75; PULSE 66–92; RESP 16; TEMP 36.3; O2SAT 93–99
[2020-01-05] MEDS: CIPROFLOXACIN 500 MG TAB PO (04:43)
[2020-01-05] MEDS: SODIUM CHLORIDE 0.9% IV 1,000 ML 70 ML IV CONT (04:43)
[2020-01-05 06:29] LABS: Hematocrit 35.4 % (42.0-52.0); Hemoglobin 11.3 g/dL (14.0-18.0); Mean Corpuscular HGB Conc 31.9 g/dl (32-36); Mean Corpuscular Hemoglobin 30.5 pg (26-34); Mean Corpuscular Volume 95.4 fl (80-100); Mean Platelet Volume 9.2 fl (7.4-10.4); Platelet Count Result 255 k/mm3 (150-375); Red Blood Count 3.71 M/mm3 (4.6-6.20); Red Cell Distribution Width 13.4 % (11.5-14.5); White Blood Count 6.3 K/mm3 (4.5-10.0)
[2020-01-05 06:42] LABS: Anion Gap 5 mmol/L (8-16); Blood Urea Nitrogen 13 mg/dL (9-20); Calcium 8.9 mg/dL (8.4-10.2); Carbon Dioxide 27 mmol/L (22-30); Chloride 105 mmol/L (98-107); Estimated CRCL calculation 69 ml/min; Estimated Glomerular Filt Rate > 60; Glucose 94 mg/dL (75-110); Potassium 4.1 mmol/L (3.4-5.0); Sodium 137 mmol/L (137-145)
[2020-01-05] MEDS: PANTOPRAZOLE 40 MG TABLET PO (08:14)
[2020-01-05] MEDS: ENALAPRIL MALEATE 10 MG TABLET 20 MG PO (08:14)
--- NOTE | 2020-01-05 15:30 | PM.IMHP ---
H&P: HPI History of Present Illness Date/Time: 01/05/20 15:30 Chief complaint: Syncope Narrative: Hermes Killian is a 79 year old male who is status post TURP 12 years ago, SEEN IN THE ER several times with urinary retention had TURP under Dr KUMAR on 01/01, went home 01/02. Pt sat down to urinate and had large episode of hematuria and passed out. was worried and brought him into ED for evaluation. No other complaints Review of Systems Review of Systems: All systems reviewed & are unremarkable except as noted in HPI and below Cardiovascular: Comments: Syncope Genitourinary: Genitourinary: Reports hematuria PMFSH Past Medical History Medical History Diverticulitis Hyperlipidemia Hypertension Nephrolithiasis Pneumonia Surgical History Surgical History History of prostate surgery SP TURP for BPH Previous back surgery Family History Family History Sibling Hypertension Malignant neoplasm of prostate Patient's brother is Mother Family history of malignant neoplasm of breast in first degree relative Family history of malignant neoplasm of urinary bladder Patient's mother is Father Patient's father is Social History Social History Smoking status: Never smoker Alcohol intake: never Substance use: never Substance use type: does not use Gender identity (if verbalized by the patient): Male Spiritual care concerns: No Meds Home Medications and Allergies Home Medications Medication Instructions Recorded Confirmed Type enalapril maleate 20 mg PO DAILY 12/19/19 01/04/20 History pantoprazole 40 mg PO DAILY 12/19/19 01/04/20 History Complete Multivitamin 1 tablet PO DAILY 12/30/19 01/04/20 History alprazolam 0.5 mg PO BID PRN 12/30/19 01/04/20 History cholecalciferol (vitamin D3) 125 mcg PO DAILY 12/30/19 01/04/20 History cyanocobalamin (vitamin B-12) 5,000 mcg PO DAILY 12/30/19 01/04/20 History omega 1-lpm-mco-fish oil [Fish Oil] 1 cap PO DAILY 12/30/19 01/04/20 History ciprofloxacin HCl 500 mg PO Q12H #10 tablet 01/03/20 01/04/20 Rx tramadol 50 mg PO Q6H PRN #20 tablet 01/03/20 01/04/20 Rx fluticasone propionate 2 spray NASAL HS 01/04/20 01/04/20 History pravastatin 40 mg PO HS 01/04/20 01/04/20 History Allergies Allergy/AdvReac Type Severity Reaction Status Date / Time morphine AdvReac Severe Hypotension Verified 01/04/20 13:54 Vital Signs Vital Signs - 24 hr 01/04/20 16:00 01/04/20 20:00 01/04/20 22:00 Temperature 36.8 C Pulse Rate 96 105 H 85 Respiratory Rate 16 Blood Pressure 134/85 Pulse Oximetry 95 01/05/20 00:00 01/05/20 04:00 01/05/20 06:00 Temperature 36.3 C L Pulse Rate 92 68 66 Respiratory Rate 16 Blood Pressure 141/75 H Pulse Oximetry 99 01/05/20 14:00 Temperature 36.3 C L Pulse Rate 72 Respiratory Rate 16 Blood Pressure 125/62 Pulse Oximetry 93 Exam Const: General: cooperative and healthy appearing; No in distress Nutritional Appearance: overweight Orientation/consciousness: oriented to person HENMT: Head: normal to inspection Resp: Effort & Inspection: no respiratory distress Auscultation: no rhonchi and no wheezes Cardio: Rate: regular rate Rhythm: regular rhythm GI: Inspection: normal to inspection Auscultation: normal bowel sounds Neuro: General: oriented to person Extrem: Other: No edema Psych: Appearance: grossly normal H&P: Results Labs Labs: Short CBC 01/05/20 Range/Units 06:10 WBC 6.3 (4.5-10.0) K/mm3 Hgb 11.3 L (14.0-18.0) g/dL Hct 35.4 L (42.0-52.0) % Plt Count 255 (150-375) k/mm3 [facility] 01/05/20 06:10 Sodium 137 Potassium 4.1 Chloride 105 Carbon Dioxide 27 BUN 13 Creatinine
--- NOTE | 2020-01-05 15:32 | PM.DS ---
DS: Admitting Diagnosis Admitting Diagnosis Admitting Diagnosis: Syncope DS: Discharge Diagnosis Discharge Diagnosis (1) Hematuria: Code(s): R31.9 - Hematuria, unspecified Status: Resolved Assessment and Plan: No further hematuria, hb is stable at 11. pt seen by urology stable for dischrage with routine follow up with urology. (2) Syncope and collapse: Code(s): R55 - Syncope and collapse Status: Resolved Assessment and Plan: Likely secondary to hematuria and vasovagal response DS: Summary Time Spent with Patient Time attestation: Total time spent providing and/or coordinating discharge services:20 minutes on day of dischrage Exam Const: General: cooperative and healthy appearing; No in distress Nutritional Appearance: overweight Orientation/consciousness: oriented to person HENMT: Head: normal to inspection Resp: Effort & Inspection: no respiratory distress Auscultation: no rhonchi and no wheezes Cardio: Rate: regular rate Rhythm: regular rhythm GI: Inspection: normal to inspection Auscultation: normal bowel sounds Neuro: General: oriented to person Extrem: Other: No edema Psych: Appearance: grossly normal DS: Data Data Completed and Pending Labs on day of discharge: Labs from last 24 hours 01/05/20 01/05/20 06:10 06:10 WBC 6.3 RBC 3.71 L Hgb 11.3 L Hct 35.4 L MCV 95.4 MCH 30.5 MCHC 31.9 L RDW 13.4 Plt Count 255 MPV 9.2 Sodium 137 Potassium 4.1 Chloride 105 Carbon Dioxide 27 Anion Gap 5 L BUN 13 Creatinine 0.70 Estim Creat Clear Calc 69 Estimated GFR > 60 Glucose 94 Calcium 8.9 Preliminary micro results at discharge 01/04/20 05:19 Blood Culture - Preliminary Blood 01/04/20 05:20 Blood Culture - Preliminary Blood Discharge Plan Discharge Attending physician on discharge: Romana Etienne Consulting providers: Joel Lopez Discharging Clinician: Romana Etienne Anticipated Discharge Date/Time: 01/05/20 15:27 Patient Disposition: Home, Self-Care Activity: as tolerated Diet: heart healthy Patient Instructions: Antibiotic Form Stand Alone Forms: General Discharge Information Follow-up/Referrals: Joel Lopez MD [Physician] - Keith Stahl DO [Primary Care Provider] - Discharge Medications: Continued alprazolam 0.5 mg Tablet 0.5 mg PO BID PRN (Reason: Anxiety) RF: 0 Complete Multivitamin Tablet 1 tablet PO DAILY RF: 0 cholecalciferol (vitamin D3) 125 mcg (5,000 unit) Tablet 125 mcg PO DAILY RF: 0 Hold Instructions: Resume on 01/08/20. omega 5-nke-obs-fish oil [Fish Oil] 1,000 mg (120 mg-180 mg) Capsule 1 cap PO DAILY RF: 0 Hold Instructions: Resume on 01/08/20. cyanocobalamin (vitamin B-12) 5,000 mcg Capsule 5,000 mcg PO DAILY RF: 0 Hold Instructions: Resume on 01/08/20. ciprofloxacin HCl 500 mg tablet 500 mg PO Q12H Qty: 10 RF: 0 tramadol 50 mg tablet 50 mg PO Q6H PRN (Reason: pain) Qty: 20 RF: 0 pravastatin 40 mg tablet 40 mg PO HS RF: 0 fluticasone propionate 50 mcg/actuation spray,suspension 2 spray NASAL HS RF: 0 enalapril maleate 20 mg tablet 20 mg PO DAILY RF: 0 pantoprazole 40 mg tablet,delayed release (DR/EC) 40 mg PO DAILY RF: 0 Date of admission: 01/04/20 06:41 Primary Care Provider: Keith Stahl Admitting Provider: Fam Garcia Attending physician on admission: Fam Garcia Condition: Stable
== END 2020-01-05 16:20 | disposition home or self-care (01) ==
LOC: ANHED 06:21 → ANH3MEDSUR 01-05 15:29
PROVIDERS: Admitting Provider Family Medicine; Emergency Provider Emergency Medicine; PCP Internal Medicine; Visit Provider Family Medicine
DX: R31.9 Hematuria, unspecified (principal); R55 Syncope and collapse; I10 Essential (primary) hypertension; E78.5 Hyperlipidemia, unspecified; Z79.899 Other long term (current) drug therapy; Z98.890 Other specified postprocedural states; Z87.442 Personal history of urinary calculi
CPT/HCPCS: 36415; 70450; 71275; 80048; 80053; 81001; 83605; 84484; 85025; 85027; 85610; 85730; 87040; 87086; 93005; 96360; 96361; 99285; A9270; G0378; J7030; Q9967

== ENCOUNTER → 2021-02-16 13:41 | Outpatient (CLI) | payer OTHER, SELFPAY ==
--- NOTE | ~2021-02-16 | XR_ITS ---
EXAMINATION: XR knee RT 3V DATE: 02/16/2021 14:15 INDICATION: Right knee pain TECHNIQUE: Three views of the right knee were obtained. COMPARISON: None. FINDINGS: Alignment is normal. No fracture or osteochondral lesion. There is mild tricompartmental os teoarthritis characterized by tiny marginal osteophytes. There is calcification of the menisci. No murtaza int effusion/synovitis. Calcified atherosclerosis is noted. IMPRESSION: 1. No acute osseous abnormality. Reviewed, dictated and finalized at location A.
== END ==
PROVIDERS: PCP Internal Medicine; Visit Provider Nurse Practitioner
DX: M25.561 Pain in right knee (principal)
CPT/HCPCS: 73562

== ENCOUNTER 2021-02-26 09:52 | Outpatient (CLI) | payer OTHER, SELFPAY ==
--- NOTE | 2021-02-26 10:05 | EST_ITS ---
Patient Info Name: Hermes Killian Age: 80 years : 1940 Gender: Male Ht: 67 in Wt: 185 lbs BSA: 2.01 m2 HR: 65 bpm BP: 130 / 81 mmHg Heart Rhythm: Sinus Rhythm Exam Date: 02/26/2021 10:17 AM Exam Location: [facility] Stress Patient Status: Outpatient Admit Date: 02/26/2021 Staff Ordering Physician: Mehreen Hunter Attending Provider: Mehreen Hunter Exercise Technologist: Haylee Denise CT Exercise Physician: Arvind Jacobsen DO Exam Type: CA stress test treadmill Study Info Indications R53.83 - Other fatigue An exercise stress test was performed. Summary 1. 1. Negative Nicho exercise stress test for ischemic ST changes by ECG criteria. 2. 2. Reduced functional capacity, achieving 4 METs of workload. 3. 3. Appropriate HR response to exercise. 4. 4. Appropriate HR recovery at 1 minute post exercise. 5. 5. No imaging with stress testing. 6. 6. Patient informed of the above results. Protocol: Nicho Stress ECG Details Stage: REST Duration (min): 0 min : 51 sec Speed (mph): 0.0 Grade (%): 0 HR (bpm): 66 SBP (mmHg): 130 DBP (mmHg): 81 METS: --- Stage: REST Duration (min): 4 min : 20 sec Speed (mph): 0.0 Grade (%): 0 HR (bpm): 71 SBP (mmHg): 130 DBP (mmHg): 81 METS: --- Stage: STAGE 1 Duration (min): 1 min : 0 sec Speed (mph): 1.7 Grade (%): 10 HR (bpm): 107 SBP (mmHg): 130 DBP (mmHg): 81 METS: --- Stage: STAGE 1 Duration (min): 2 min : 0 sec Speed (mph): 1.7 Grade (%): 10 HR (bpm): 125 SBP (mmHg): 130 DBP (mmHg): 81 METS: --- Stage: STAGE 1 Duration (min): 3 min : 0 sec Speed (mph): 1.7 Grade (%): 10 HR (bpm): 133 SBP (mmHg): 177 DBP (mmHg): 83 METS: --- Stage: RECOVERY Duration (min): 0 min : 59 sec Speed (mph): 0.0 Grade (%): 0 HR (bpm): 117 SBP (mmHg): 177 DBP (mmHg): 83 METS: --- Stage: RECOVERY Duration (min): 1 min : 59 sec Speed (mph): 0.0 Grade (%): 0 HR (bpm): 89 SBP (mmHg): 177 DBP (mmHg): 83 METS: --- Stage: RECOVERY Duration (min): 2 min : 49 sec Speed (mph): 0.0 Grade (%): 0 HR (bpm): 68 SBP (mmHg): 174 DBP (mmHg): 83 METS: --- Rest HR: 71 bpm Peak HR: 136 bpm Rest Sys BP: 130 mmHg Peak Sys BP: 177 mmHg Max Pred HR: 140 bpm % Max Pred HR: 97 % Target HR: 119 bpm Max RPP: 24,072 bpm*mmHg Dash Score: 0 Termination Reason: Reached target heart rate or workload Cardiac Symptoms: Shortness of breath Max ST Seg Deviation: 0.70 mm Total Time: 3 min : 0 sec Rest Wilson BP: 81 mmHg Peak Wilson BP: 83 mmHg Angina Score: None Total METS: 4.7 Resting ECG Sinus rhythm with first degree AV block. Stress ECG No ST changes. Arrhythmias None. Report Signatures
== END 2021-02-26 09:53 | disposition home or self-care (01) ==
LOC: ANHCARD 09:53
PROVIDERS: PCP Internal Medicine; Visit Provider Nurse Practitioner
DX: R53.83 Other fatigue (principal)
CPT/HCPCS: 93017

== ENCOUNTER 2021-05-17 18:04 | Inpatient (IN) | payer OTHER, SELFPAY ==
[2021-05-17] VITALS (8 sets, daily range): BP systolic 103–135; BP diastolic 62–74; PULSE 89–119; RESP 19–28; TEMP 36.6–39.3; O2SAT 92–98; BMI 29.9
--- NOTE | ~2021-05-17 | XR_ITS ---
XR chest 1V portable DATE: 05/17/2021 18:45 INDICATION: Fever. Weakness. History of hypertension. TECHNIQUE: Portable upright AP chest on 05/17/2021 1839 hours COMPARISON: None FINDINGS: No pulmonary infiltrate or consolidation, pleural effusion. No pneumothorax. Heart size i s within normal range. There is aortic calcification, ectasia and tortuosity. Diffuse osteopenia. IMPRESSION: Pulmonary vascular redistribution, which may indicate pulmonary venous hypertension; othe rwise no active pulmonary disease Reviewed, dictated and finalized at location A. NICAL SUPPORT CONSULTANT IMPRESSION: Pulmonary vascular redistribution, which may indicate pulmonary rina ous hypertension; otherwise no active pulmonary disease
[2021-05-17] MEDS: ACETAMINOPHEN 500 MG TABLET 1000 MG PO (18:48)
--- NOTE | 2021-05-17 19:15 | ED.FEVER ---
HPI - Fever General Chief Complaint: Fever <Matthew Mckenzie PA-C - Last Filed: 05/17/21 20:57> Stated Complaint: FEVER <Matthew Mckenzie PA-C - Last Filed: 05/17/21 20:57> Time Seen by Provider: 05/17/21 18:12 <Matthew Mckenzie PA-C - Last Filed: 05/17/21 20:57> Source: patient and family () <Matthew Mckenzie PA-C - Last Filed: 05/17/21 20:57> Mode of arrival: ambulatory <BESSIE Nieves Last Filed: 05/17/21 20:57> Limitations: no limitations <BESSIE Nieves Last Filed: 05/17/21 20:57> History of Present Illness HPI Narrative: Patient is a 80-year-old male presenting with chief complaint of fatigue, fever, body aches and chills that began this afternoon. Patient denies chest pain, cough or shortness of breath. Patient denies any abdominal pain, nausea, vomiting or urinary symptoms. Patient straight cath since 3 times a day. He denies noticing any change in his urinary such as hematuria or cloudiness or foul smell. Patient reports that he is at his Covid vaccinations as well as booster. Patient reports he has also had his flu shot. Patient denies any other sick persons in his home. Patient denies any speech changes, facial asymmetry or unilateral weakness. Patient does report that he has had some trouble ambulating due to weakness and fatigue. <Matthew Mckenzie PA-C - Last Filed: 05/17/21 20:57> Related Data Home Medications: Home Medications Medication Instructions Recorded Confirmed Complete Multivitamin 1 tablet PO DAILY 12/30/19 02/16/21 cholecalciferol (vitamin D3) 125 mcg PO DAILY 12/30/19 02/16/21 cyanocobalamin (vitamin B-12) 5,000 mcg PO DAILY 12/30/19 02/16/21 omega 1-ogu-wzw-fish oil [Fish Oil] 1 cap PO DAILY 12/30/19 02/16/21 ascorbic acid (vitamin C) [Vitamin 1 g PO DAILY 05/17/21 C] aspirin 81 mg PO DAILY 05/17/21 tamsulosin 0.4 mg PO DAILY 05/17/21 zinc 50 mg PO DAILY 05/17/21 <Matthew Mckenzie PA-C - Last Filed: 05/17/21 20:57> Allergies/Adverse Reactions: Allergies Allergy/AdvReac Type Severity Reaction Status Date / Time morphine AdvReac Severe Hypotension Verified 05/17/21 18:18 <Matthew Mckenzie PA-C - Last Filed: 05/17/21 20:57> Review of Systems Review of Systems: CONSTITUTIONAL: Reports fever, chills, body aches EYES: Denies visual changes, redness, or discharge. ENT: Denies rhinorrhea, congestion, sore throat, or otalgia. CARDIOVASCULAR: Denies chest pain, palpitations, or edema. RESPIRATORY: Denies cough or dyspnea. GASTROINTESTINAL: Denies abdominal pain, nausea, vomiting, or diarrhea. GENITOURINARY: Denies dysuria or hematuria. SKIN: Denies rash or itching. MUSCULOSKELETAL: Denies back pain, joint pain, or myalgia. NEUROLOGIC: Denies headache, numbness, dizziness, or weakness. PSYCHIATRIC: Denies anxiety or depression. <Matthew Mckenzie PA-C - Last Filed: 05/17/21 20:57> [facility] Past Medical History Medical History: Medical History (Updated 05/17/21 @ 20:52 by Matthew Mckenzie PA-C) Diverticulitis Hyperlipidemia Hypertension Nephrolithiasis Pneumonia <Matthew Mckenzie PA-C - Last Filed: 05/17/21 20:57> Surgical History Surgical History: Surgical History History of prostate surgery SP TURP for BPH Previous back surgery <Matthew cMkenzie PA-C - Last Filed: 05/17/21 20:57> Family History Family History: Family History Sibling Hypertension Malignant neoplasm of prostate Patient's brother is Mother Family history of malignant neoplasm of breast in first degree relative Family history of malignant neoplasm of urinary bladder Patient's mother is Father Patient's father is <Matthew Mckenzie PA-C - Last Filed: 05/17/21 20:57> Social History Social History: Social History (Reviewed 02/16/21 @ 13:17 by Hilton
[2021-05-17 19:16] LABS: Basophils Percent Auto 0.2 % (0.2-1.2); Eosinophils Percent Auto 0.2 % (0-4.4); Hematocrit 36.4 % (42.0-52.0); Hemoglobin 12.2 g/dL (14.0-18.0); Immature Granulocyte Absolute 0.03 K/mm3 (0.00-0.031); Immature Granulocyte Percent A 0.3 % (0-0.5); Lymphocytes Percent Auto 2.9 % (18.3-44.2); Mean Corpuscular HGB Conc 33.5 g/dl (32-36); Mean Corpuscular Hemoglobin 31.2 pg (26-34); Mean Corpuscular Volume 93.1 fl (80-100); Mean Platelet Volume 8.7 fl (7.4-10.4); Monocytes Absolute Auto 0.6 K/mm3 (0.1-0.6); Monocytes Percent Auto 5.4 % (2.6-8.5); Neutrophils Absolute Auto 9.3 K/mm3 (1.3-6.7); Platelet Count Result 183 k/mm3 (150-375); Red Blood Count 3.91 M/mm3 (4.6-6.20); Red Cell Distribution Width 13.3 % (11.5-14.5); White Blood Count 10.2 K/mm3 (4.5-10.0)
[2021-05-17] MEDS: SODIUM CHLORIDE 0.9% IV 1,000 ML 999 ML IV CONT ×2 (19:33→20:46)
[2021-05-17 19:39] LABS: Alanine Aminotransferase 22 U/L (4-50); Albumin Level 4.2 g/dL (3.5-5.1); Alkaline Phosphatase 58 U/L (38-126); Anion Gap 7 mmol/L (8-16); Aspartate Amino Transferase 29 U/L (17-59); Bilirubin,Total 0.8 mg/dL (0.2-1.3); Blood Urea Nitrogen 22 mg/dL (9-20); Calcium 9.2 mg/dL (8.4-10.2); Carbon Dioxide 26 mmol/L (22-30); Chloride 100 mmol/L (98-107); Estimated CRCL calculation 52 ml/min; Estimated Glomerular Filt Rate > 60; Glucose 126 mg/dL (65-110); Lactic Acid Reflex 1.2 mmol/L (0.7-2.1); Potassium 3.7 mmol/L (3.4-5.0); Sodium 133 mmol/L (137-145)
[2021-05-17 20:11] LABS: Add Urine Microscopic? YES; Appearance Urine Cloudy (Clear); Bacteria Urine 2+ /hpf; Bilirubin Urine Negative (Negative); Blood Urine 2+ (Negative); Color Urine Yellow (Yellow); Glucose Urine UA Negative (Negative); Ketones Urine Negative (Negative); Leukocyte Esterase Ur 2+ LEU/UL (Negative); Mucus Urine Few /lpf; Nitrate Urine Positive (Negative); Protein Urine 1+ mg/dL (Negative); RBC Urine >75 /hpf (0-2); Specific Grav Ur 1.019 (1.001-1.035); Urobilinogen Urine Negative mg/dL (<2.0); WBC Urine 51-75 /hpf
[2021-05-17 20:52] LABS: EDCOVIDSCREEN Negative (Negative)
--- NOTE | 2021-05-17 21:40 | PM.IMHP ---
H&P: HPI History of Present Illness Date/Time: 05/17/21 21:40 Chief Complaint: Altered mental status. Narrative: This is an 80-year-old male with past medical history significant for benign prostatic hyperplasia, patient self catheterize 3 times a day. Patient was brought in today to the emergency room after he was noted to be confused, having rigors, chills, witnessed by his according to the day before he had been his usual and he has been his usual for the last several days the went to celebrate Dom and a recent seem to be business as usual. states that in the past he got sepsis and that he started acting like that so she decided to bring him to the emergency room. In emergency room preliminary workup was significant for urinalysis with numerous wbc's present patient also had a temp of 102?. Patient denies any nausea, vomiting, diarrhea, abdominal pain, cough, sputum production, he has been self catheterizing as usual and did not notice any changes. Decision has been made to admit the patient for further evaluation management and treatment. Review of Systems Review of Systems: Altered mental status rigors and fever. Constitutional: Constitutional: Reports chills, Denies fatigue, Reports fever(s), Denies malaise, Denies night sweats and Denies weakness Eyes: Eyes: Denies change in vision ENT: Denies dysphagia, Denies nasal congestion, Denies nasal discharge, Denies nasal obstruction and Denies odynophagia Cardiovascular: Cardiovascular: Denies pedal edema, Denies irregular heart rhythm, Denies leg edema, Denies radiating jaw, neck or arm pain, Denies palpitations, Denies dyspnea on exertion and Denies orthopnea Respiratory: Respiratory: Denies cough, Denies excessive phlegm production, Denies dyspnea and Denies wheezing Gastrointestinal: Gastrointestinal: Denies abdominal pain, Denies dyspepsia, Denies heartburn, Denies diarrhea, Denies nausea and Denies vomiting Genitourinary: Genitourinary: Denies hematuria, Denies dysuria, Denies flank pain, Denies urinary frequency, Denies urinary incontinence and Denies urinary urgency Musculoskeletal: Musculoskeletal: Denies myalgias, Denies arthralgias, Denies joint swelling and Denies muscle weakness Integumentary/Breasts: Skin/Breast: Denies rash Neurologic: Denies focal weakness and Denies Sensory deficit (Neuro) Psychiatric: Psychiatric: Reports confusion Endocrine: Endocrine: Denies heat intolerance, Denies polyphagia, Denies polydipsia, Denies polyuria and Denies palpitations Hematologic/Lymphatic: Hematologic/Lymphatic: Reports no additional hematologic/lymphatic complaints and Reports as per HPI Allergic/Immunologic: Allergic/Immunologic: Reports no additional allergic/immunologic complaints and Reports as per HPI [facility] Past Medical History Medical History (Updated 05/17/21 @ 20:52 by Matthew Mckenzie PA-C) Diverticulitis Hyperlipidemia Hypertension Nephrolithiasis Pneumonia Surgical History Surgical History History of prostate surgery SP TURP for BPH Previous back surgery Family History Family History Sibling Hypertension Malignant neoplasm of prostate Patient's brother is Mother Family history of malignant neoplasm of breast in first degree relative Family history of malignant neoplasm of urinary bladder Patient's mother is Father Patient's father is Social History Social History Smoking status: Never smoker Second hand tobacco smoke exposure: No Alcohol intake: never Substance use: never Substance use type: does not use Gender identity (if verbalized by the patient): Male Spiritual care concerns: No Meds Home Medications and Allergies Home Medications Medication Instructions Recorded Co
--- NOTE | 2021-05-17 22:50 | ADMGEN ---
This patient, Hermes Killian, was admitted to Medical Room 247-. Patient/family oriented to hospital policies and general routines including ID bracelet, bed and alarms, visiting hours, pain management, procedures, bathroom and other care routines, personal items, smoking policy, room service/diet, and visiting hours. Information on how to activate the Rapid Response Team has been discussed. Patient/Family are encouraged to report perceived risks to care and to ask questions if they do not understand what they are told or what they should do.
[2021-05-18 04:37] VITALS: BP 105/61; PULSE 81; RESP 20; TEMP 36.6; O2SAT 98
[2021-05-18] MEDS: CYANOCOBALAMIN 1,000 MCG TABLET 5000 MCG PO (08:22)
[2021-05-18] MEDS: PRAVASTATIN SODIUM 20 MG TABLET 40 MG BY MOUTH (08:23)
[2021-05-18] MEDS: ZINC SULFATE 220 MG CAPSULE PO (08:23)
[2021-05-18] MEDS: ASCORBIC ACID 500 MG TABLET 1000 MG PO (08:23)
[2021-05-18] MEDS: TAMSULOSIN HCL 0.4 MG CAPSULE PO (08:23)
[2021-05-18] MEDS: THERAPEUTIC MULTIVITAMINS/MINERALS TAB (*BKC) 1 TABLET PO (08:23)
[2021-05-18] MEDS: CHOLECALCIFEROL 1,000 UNITS TABLET 5000 UNITS PO (08:23)
[2021-05-18] MEDS: ASPIRIN 81 MG CHEWABLE TABLET PO (08:23)
[2021-05-18] MEDS: OMEGA 3 POLYUNSAT FATTY ACIDS 1 GM CAP PO (08:23)
[2021-05-18] MEDS: PANTOPRAZOLE 40 MG TABLET BY MOUTH (08:23)
[2021-05-18] MEDS: ENALAPRIL MALEATE 10 MG TABLET 20 MG BY MOUTH (08:23)
[2021-05-18 08:25] VITALS: O2SAT 96
--- NOTE | 2021-05-18 11:49 | PM.IMPN ---
Progress Note: A&P Assessment and Plan (1) Acute UTI: Code(s): N39.0 - Urinary tract infection, site not specified Status: Acute Assessment and Plan: Symptoms and UA consistent with UTI - patient self caths so he is a higher risk - continue ceftriaxone and await urine cultures - continue Perkins catheter while hospitalized and this can be discontinued at discharge and he can continue self cathing at home (2) Fever: Qualifiers: Fever type: unspecified Qualified Code(s): R50.9 - Fever, unspecified Code(s): R50.9 - Fever, unspecified Status: Acute Assessment and Plan: due to above - continue antibiotics and Tylenol as needed (3) Neuromuscular dysfunction of bladder, unspecified: Code(s): N31.9 - Neuromuscular dysfunction of bladder, unspecified Status: Acute Assessment and Plan: Perkins catheter while hospitalized (4) Gastroesophageal reflux disease: Qualifiers: Esophagitis presence: esophagitis presence not specified Qualified Code(s): K21.9 - Gastro-esophageal reflux disease without esophagitis Code(s): K21.9 - Gastro-esophageal reflux disease without esophagitis Status: Chronic Assessment and Plan: Continue PPI, no acute issues (5) HTN (hypertension) with goal to be determined: Code(s): I10 - Essential (primary) hypertension Status: Acute Assessment and Plan: Last blood pressure 105/61 -continue enalapril but will add parameters Time Spent With Patient Time with patient: 25 - 35 minutes Subjective Date/time seen: 05/18/21 11:49 Interval history: Pt is a 80-year-old male here for UTI. Patient states yesterday he felt terrible and was having chills, rigors and fevers. He says this typically happens when he has a urinary tract infection.He was hospitalized last year for something similar. Today he has no chest pain, shortness of breath, nausea vomiting, fevers or chills. This is an improvement from yesterday. His appetite is still low Review of Systems Review of Systems: All systems reviewed & are unremarkable except as noted in HPI and below Exam Narrative: General: Well developed well nourished patient in NAD HEENT: normocephalic Neck: supple Neuro: Alert and oriented x4 CV:RRR Resp:CTA Abd: Soft, non distended. No pain to palpation. Positive bowel sounds Extremities: No swelling, erythema, or pain to palpation. Perkins bag with clear yellow urine Objective Data Vital Signs Vital Signs: Vital Signs - 24 hr 05/17/21 18:09 05/17/21 19:19 05/17/21 19:32 Temperature 102.0 F H Pulse Rate 119 H 111 H Respiratory Rate 28 H 25 H Blood Pressure 133/63 135/74 Pulse Oximetry 97 92 97 05/17/21 19:34 05/17/21 20:45 05/17/21 22:16 Temperature 102.7 F H Pulse Rate 96 89 Respiratory Rate 22 H 19 Blood Pressure 103/62 108/63 Pulse Oximetry 95 98 05/17/21 22:52 05/17/21 22:54 05/18/21 04:37 Temperature 97.9 F 97.9 F 97.9 F Pulse Rate 97 97 81 Respiratory Rate 20 20 20 Blood Pressure 104/64 104/64 105/61 Pulse Oximetry 98 98 05/18/21 08:25 Temperature Pulse Rate Respiratory Rate Blood Pressure Pulse Oximetry 96 Intake/Output Intake/Output: Intake & Output 05/15/21 05/16/21 05/17/21 05/18/21 23:59 23:59 23:59 23:59 Intake Total 2050 430 Output Total 1100 Balance 950 430 Meds/Results Medications: Active Medications Generic Name Dose Route Start Last Admin Trade Name Freq PRN Reason Stop Dose Admin Alprazolam 0.25 mg 05/18/21 04:04 Alprazolam (*Crx) 0.25 Mg Tablet PO BID PRN Anxiety Ascorbic Acid 1,000 mg 05/18/21 09:00 05/18/21 08:23 Ascorbic Acid 500 Mg Tablet PO 1,000 mg DAILY SINDY Administration Aspirin 81 mg 05/18/21 08:00 05/18/21 08:23 Aspirin 81 Mg Chewable Tablet PO 81 mg DAILY@0800 SINDY Administration Benzonatate 200 mg 05/18/21 04:04 John
[2021-05-18] MEDS: ENOXAPARIN 40 MG/0.4 ML SYRINGE SUB-Q (14:41)
[2021-05-18 14:55] VITALS: BP 110/62; PULSE 62; RESP 18; TEMP 36.6; O2SAT 99
[2021-05-18] MEDS: cefTRIAXone 2 GM in SODIUM CHLORIDE 0.9% IV 100 ML 200 ML IVPB (17:04)
[2021-05-18] MEDS: FLUTICASONE PROPIONATE 0.05% NA SPR 16 GM BTL (*BKC) 2 SPRAY NASAL (20:53)
[2021-05-18 21:24] VITALS: BP 121/63; PULSE 76; RESP 20; TEMP 37.1; O2SAT 98
[2021-05-19 04:30] VITALS: BP 124/69; PULSE 62; RESP 18; TEMP 36.5; O2SAT 95
[2021-05-19 05:58] LABS: Hematocrit 35.2 % (42.0-52.0); Hemoglobin 11.5 g/dL (14.0-18.0); Mean Corpuscular HGB Conc 32.7 g/dl (32-36); Mean Corpuscular Hemoglobin 30.4 pg (26-34); Mean Corpuscular Volume 93.1 fl (80-100); Mean Platelet Volume 9.4 fl (7.4-10.4); Platelet Count Result 201 k/mm3 (150-375); Red Blood Count 3.78 M/mm3 (4.6-6.20); Red Cell Distribution Width 13.2 % (11.5-14.5); White Blood Count 6.7 K/mm3 (4.5-10.0)
[2021-05-19 06:11] LABS: Anion Gap 4 mmol/L (8-16); Blood Urea Nitrogen 13 mg/dL (9-20); Calcium 9.1 mg/dL (8.4-10.2); Carbon Dioxide 26 mmol/L (22-30); Chloride 104 mmol/L (98-107); Estimated CRCL calculation 67 ml/min; Estimated Glomerular Filt Rate > 60; Glucose 102 mg/dL (65-110); Potassium 3.8 mmol/L (3.4-5.0); Sodium 134 mmol/L (137-145)
[2021-05-19] MEDS: ASCORBIC ACID 500 MG TABLET 1000 MG PO (07:45)
[2021-05-19] MEDS: PANTOPRAZOLE 40 MG TABLET BY MOUTH (07:45)
[2021-05-19] MEDS: CHOLECALCIFEROL 1,000 UNITS TABLET 5000 UNITS PO (07:45)
[2021-05-19] MEDS: ENALAPRIL MALEATE 10 MG TABLET 20 MG BY MOUTH (07:45)
[2021-05-19] MEDS: ZINC SULFATE 220 MG CAPSULE PO (07:45)
[2021-05-19] MEDS: CYANOCOBALAMIN 1,000 MCG TABLET 5000 MCG PO (07:45)
[2021-05-19] MEDS: THERAPEUTIC MULTIVITAMINS/MINERALS TAB (*BKC) 1 TABLET PO (07:45)
[2021-05-19] MEDS: ENOXAPARIN 40 MG/0.4 ML SYRINGE SUB-Q (07:46)
[2021-05-19] MEDS: ASPIRIN 81 MG CHEWABLE TABLET PO (07:46)
[2021-05-19] MEDS: OMEGA 3 POLYUNSAT FATTY ACIDS 1 GM CAP PO (07:46)
[2021-05-19] MEDS: TAMSULOSIN HCL 0.4 MG CAPSULE PO (07:46)
[2021-05-19] MEDS: PRAVASTATIN SODIUM 20 MG TABLET 40 MG BY MOUTH (07:46)
--- NOTE | 2021-05-19 07:46 | PM.IMPN ---
Progress Note: A&P Assessment and Plan (1) Septicemia: Code(s): A41.9 - Sepsis, unspecified organism Status: Acute Assessment and Plan: Both blood cultures are growing gram-negative bacilli with a urine culture growing Klebsiella -ceftriaxone was adjusted to 2 g daily, will need a total of at least 3 days of IV antibiotics and then can transition to oral for 10-14 days -likely due to UTI, await identification and sensitivities -white blood cell count, temperature, and pulse have improved with treatment (2) Acute UTI: Code(s): N39.0 - Urinary tract infection, site not specified Status: Acute Assessment and Plan: Symptoms and UA consistent with UTI - patient self caths so he is a higher risk - continue ceftriaxone - continue Lanza catheter while hospitalized and this can be discontinued at discharge and he can continue self cathing at home (3) Fever: Qualifiers: Fever type: unspecified Qualified Code(s): R50.9 - Fever, unspecified Code(s): R50.9 - Fever, unspecified Status: Acute Assessment and Plan: due to above - continue antibiotics and Tylenol as needed (4) Neuromuscular dysfunction of bladder, unspecified: Code(s): N31.9 - Neuromuscular dysfunction of bladder, unspecified Status: Acute Assessment and Plan: Lanza catheter while hospitalized (5) Gastroesophageal reflux disease: Qualifiers: Esophagitis presence: esophagitis presence not specified Qualified Code(s): K21.9 - Gastro-esophageal reflux disease without esophagitis Code(s): K21.9 - Gastro-esophageal reflux disease without esophagitis Status: Chronic Assessment and Plan: Continue PPI, no acute issues (6) HTN (hypertension) with goal to be determined: Code(s): I10 - Essential (primary) hypertension Status: Acute Assessment and Plan: Last blood pressure 124/69 -continue enalapril but will add parameters Subjective Date/time seen: 05/19/21 07:46 Interval history: Pt is a 80-year-old male here for UTI. Patient states on admission he felt terrible and was having chills, rigors and fevers. He says this typically happens when he has a urinary tract infection.He was hospitalized last year for something similar. Today he has no chest pain, shortness of breath, nausea vomiting, fevers or chills. He is feeling better already. He noticed some blood in his lanza. His appetite is still low Exam Narrative: General: Well developed well nourished patient in NAD HEENT: normocephalic Neck: supple Neuro: Alert and oriented x4 CV:RRR Resp:CTA Abd: Soft, non distended. No pain to palpation. Positive bowel sounds Extremities: No swelling, erythema, or pain to palpation. Lanza bag with clear yellow urine Objective Data Vital Signs Vital Signs: Vital Signs - 24 hr 05/18/21 08:25 05/18/21 14:55 05/18/21 21:24 Temperature 97.8 F 98.8 F Pulse Rate 62 76 Respiratory Rate 18 20 Blood Pressure 110/62 121/63 Pulse Oximetry 96 99 98 05/19/21 04:30 Temperature 97.7 F Pulse Rate 62 Respiratory Rate 18 Blood Pressure 124/69 Pulse Oximetry 95 Intake/Output Intake/Output: Intake & Output 05/16/21 05/17/21 05/18/21 05/19/21 23:59 23:59 23:59 23:59 Intake Total 2050 1110 240 Output Total 1100 1300 400 Balance 950 -190 -160 Meds/Results Medications: Active Medications Generic Name Dose Route Start Last Admin Trade Name Freq PRN Reason Stop Dose Admin Alprazolam 0.25 mg 05/18/21 04:04 Alprazolam (*Crx) 0.25 Mg Tablet PO BID PRN Anxiety Ascorbic Acid 1,000 mg 05/18/21 09:00 05/19/21 07:45 Ascorbic Acid 500 Mg Tablet PO 1,000 mg DAILY SINDY Administration Aspirin 81 mg 05/18/21 08:00 05/19/21 07:46 Aspirin 81 Mg Chewable Tablet PO 81 mg DAILY@0800 [facility] Administration Benzonatate 200 mg 05/18/21 04:04 Benzonatate 100 Mg
[2021-05-19 14:00] VITALS: BP 107/61; PULSE 60; RESP 20; TEMP 36.6; O2SAT 97
[2021-05-19] MEDS: cefTRIAXone 2 GM in SODIUM CHLORIDE 0.9% IV 100 ML 200 ML IVPB (16:40)
[2021-05-19] MEDS: FLUTICASONE PROPIONATE 0.05% NA SPR 16 GM BTL (*BKC) 2 SPRAY NASAL (19:18)
[2021-05-19 19:29] VITALS: PULSE 60; RESP 20; O2SAT 97
[2021-05-19 22:00] VITALS: BP 126/74; PULSE 65; RESP 18; TEMP 36.6; O2SAT 96
[2021-05-20 05:49] LABS: Basophils Percent Auto 0.4 % (0.2-1.2); Eosinophils Absolute Auto 0.3 K/mm3 (0-0.3); Eosinophils Percent Auto 3.7 % (0-4.4); Hematocrit 35.5 % (42.0-52.0); Hemoglobin 11.8 g/dL (14.0-18.0); Immature Granulocyte Absolute 0.03 K/mm3 (0.00-0.031); Immature Granulocyte Percent A 0.4 % (0-0.5); Lymphocytes Absolute Auto 1.35 K/mm3 (0.9-3.2); Lymphocytes Percent Auto 19.7 % (18.3-44.2); Mean Corpuscular HGB Conc 33.2 g/dl (32-36); Mean Corpuscular Hemoglobin 30.6 pg (26-34); Mean Corpuscular Volume 92.2 fl (80-100); Mean Platelet Volume 9.1 fl (7.4-10.4); Monocytes Absolute Auto 1.1 K/mm3 (0.1-0.6); Monocytes Percent Auto 15.6 % (2.6-8.5); Neutrophils Absolute Auto 4.1 K/mm3 (1.3-6.7); Neutrophils Percent Auto 60.2 % (45.5-73.1); Platelet Count Result 214 k/mm3 (150-375); Red Blood Count 3.85 M/mm3 (4.6-6.20); Red Cell Distribution Width 13.2 % (11.5-14.5); White Blood Count 6.8 K/mm3 (4.5-10.0)
[2021-05-20 06:00] VITALS: BP 118/65; PULSE 67; RESP 18; TEMP 36.9; O2SAT 96
[2021-05-20 06:32] LABS: Anion Gap 7 mmol/L (8-16); Blood Urea Nitrogen 14 mg/dL (9-20); CRP 2.3 mg/dL (<1.0); Calcium 9.3 mg/dL (8.4-10.2); Carbon Dioxide 26 mmol/L (22-30); Chloride 105 mmol/L (98-107); Estimated CRCL calculation 67 ml/min; Estimated Glomerular Filt Rate > 60; Glucose 101 mg/dL (65-110); Potassium 3.9 mmol/L (3.4-5.0); Sodium 138 mmol/L (137-145)
[2021-05-20] MEDS: ENOXAPARIN 40 MG/0.4 ML SYRINGE SUB-Q (08:29)
[2021-05-20] MEDS: THERAPEUTIC MULTIVITAMINS/MINERALS TAB (*BKC) 1 TABLET PO (08:29)
[2021-05-20] MEDS: CYANOCOBALAMIN 1,000 MCG TABLET 5000 MCG PO (08:29)
[2021-05-20] MEDS: PANTOPRAZOLE 40 MG TABLET BY MOUTH (08:30)
[2021-05-20] MEDS: PRAVASTATIN SODIUM 20 MG TABLET 40 MG BY MOUTH (08:30)
[2021-05-20] MEDS: TAMSULOSIN HCL 0.4 MG CAPSULE PO (08:30)
[2021-05-20] MEDS: CHOLECALCIFEROL 1,000 UNITS TABLET 5000 UNITS PO (08:30)
[2021-05-20] MEDS: ASPIRIN 81 MG CHEWABLE TABLET PO (08:30)
[2021-05-20] MEDS: OMEGA 3 POLYUNSAT FATTY ACIDS 1 GM CAP PO (08:30)
[2021-05-20] MEDS: ASCORBIC ACID 500 MG TABLET 1000 MG PO (08:30)
[2021-05-20] MEDS: ENALAPRIL MALEATE 10 MG TABLET 20 MG BY MOUTH (08:30)
[2021-05-20] MEDS: ZINC SULFATE 220 MG CAPSULE PO (08:30)
--- NOTE | 2021-05-20 10:00 | PM.DS ---
DS: Admitting Diagnosis Discharge Date 05/20/21 Admitting Diagnosis Urinary tract infection Altered mental status likely secondary to urinary tract DS: Discharge Diagnosis Discharge Diagnosis (1) Bacteremia due to Klebsiella pneumoniae: Code(s): R78.81 - Bacteremia; B96.1 - Klebsiella pneumoniae [K. pneumoniae] as the cause of diseases classified elsewhere Status: Acute Assessment and Plan: -Patient continued Rocephin 2 g daily for 3 days and transitioning to cefdinir for 11 more days for 2 week course -labs and vitals improved while on IV antibiotics. Bacteremia secondary to urinary tract infection (2) Urinary tract infection due to Klebsiella species: Code(s): N39.0 - Urinary tract infection, site not specified; B96.89 - Other specified bacterial agents as the cause of diseases classified elsewhere Status: Acute Assessment and Plan: -As above -likely cause for UTI his self-catheterizations DS: Summary Hospital Course Reason for hospitalization: Urinary tract infection, altered mental status Hospital Course: Patient is an 80-year-old male past medical history BPH who self catheterizes at home TID presents hospital with confusion, rigors, chills. Patient was found to have Klebsiella oxytoca bacteremia urinary tract infection. Likely etiology is from self catheterizations increased risk for infection from repeated trauma. Patient was started Rocephin with good improvement, vitals normalized, labs normalized. He completed 3 days of IV antibiotics and we transition to p.o. cefdinir for 11 more days for total of 14 days treatment. Patient follow-up with PCP in 2 weeks after antibiotics completed. At time of discharge patient's vitals stable, labs stable, patient is stable for discharge home. Patient understands and agrees with plan. Status at Discharge Cognitive/behavioral status at discharge: At baseline Functional status at discharge: independent ambulation Overall status at discharge: patient is back to baseline Time Spent with Patient Time attestation: Total time spent providing and/or coordinating discharge services:35 Time spent: Greater than 30 minutes Exam Narrative: - GENERAL: Pleasant male in no acute distress. Well-nourished. - EYES: EOMI. Anicteric. - HENT: Moist mucous membranes. No scleral icterus. - LUNGS: Clear to auscultation bilaterally, no wheezing, rhonchi, or rales. - CARDIOVASCULAR: Regular rate and rhythm. No murmur. No JVD. - ABDOMEN: Soft, non-tender and non-distended. No palpable masses. - EXTREMITIES: No edema. Peripheral pulses 2+. Non-tender. - NEUROLOGIC: No focal neurological deficits. CN II-XII grossly intact. - PSYCHIATRIC: Awake, Alert and oriented. Appropriate mood and affect. - SKIN: No rashes or lesions. Warm. - LYMPH: No cervical lymphadenopathy. DS: Data Data Completed and Pending Labs on day of discharge: Labs from last 24 hours 05/20/21 05/20/21 05:24 05:24 WBC 6.8 RBC 3.85 L Hgb 11.8 L Hct 35.5 L MCV 92.2 MCH 30.6 MCHC 33.2 RDW 13.2 Plt Count 214 MPV 9.1 Immature Gran % (Auto) 0.4 Neut % (Auto) 60.2 Lymph % (Auto) 19.7 [place] % (Auto) 15.6 H Eos % (Auto) 3.7 Baso % (Auto) 0.4 Lymph # (Auto) 1.35 [place] # (Auto) 1.1 H Eos # (Auto) 0.3 Baso # (Auto) 0.0 Abs Immat Gran (auto) 0.03 Absolute Neuts (auto) 4.1 Absolute Nucleated RBC 0.0 Nucleated RBC % 0.0 Sodium 138 Potassium 3.9 Chloride 105 Carbon Dioxide 26 Anion Gap 7 L BUN 14 Creatinine 0.80 Estim Creat Clear Calc 67 Estimated GFR > 60 Glucose 101 Calcium 9.3 C-Reactive Protein 2.3 H Preliminary micro results at discharge 05/17/21 21:44 Blood Culture - Preliminary Blood 05/17/21 21:44 Blood Culture - Preliminary Blood Discharge Plan Discharge Attending physician on discharge: Emily Crow Consulting providers: Matthew Mckenzie Discharging Clinician: Emily Crow
[2021-05-20] MEDS: cefTRIAXone 2 GM in SODIUM CHLORIDE 0.9% IV 100 ML 200 ML IVPB (11:57)
== END 2021-05-20 13:34 | disposition home or self-care (01) | DRG 699 ==
LOC: ANHED 20:52 → ANH2MED 21:54
PROVIDERS: Physician Assistant; Admitting Provider Internal Medicine; Emergency Provider Emergency Medicine; PCP Internal Medicine; Visit Provider Student in an Organized Health Care Education/Training Program
DX: T83.518A Infection and inflammatory reaction due to other urinary catheter, initial encounter (principal); N39.0 Urinary tract infection, site not specified; R78.81 Bacteremia; B96.1 Klebsiella pneumoniae [K. pneumoniae] as the cause of diseases classified elsewhere; Z20.822 Contact with and (suspected) exposure to COVID-19; N40.0 Benign prostatic hyperplasia without lower urinary tract symptoms; N31.9 Neuromuscular dysfunction of bladder, unspecified; R09.02 Hypoxemia; K21.9 Gastro-esophageal reflux disease without esophagitis; I10 Essential (primary) hypertension; E78.5 Hyperlipidemia, unspecified; G47.33 Obstructive sleep apnea (adult) (pediatric)
CPT/HCPCS: 36415; 51701; 71045; 80048; 80053; 81001; 83605; 85025; 85027; 86140; 87040; 87077; 87086; 87088; 87186; 87426; 87804; 96361; 96365; 99285; A9270; C9803; G0378; J0696; J1650; J7030

== ENCOUNTER 2022-03-31 15:27 | Emergency (ER) | payer OTHER, SELFPAY ==
[2022-03-31] VITALS (26 sets, daily range): BP systolic 104–140; BP diastolic 67–77; PULSE 74–88; RESP 16–20; TEMP 37; O2SAT 94
--- NOTE | 2022-03-31 16:12 | ECG_ITS ---
Measurements Intervals [place] Rate: 83 P: 15 NH: 236 QRS: 5 QRSD: 92 T: 56 QT: 350 QTc: 413 Interpretive Statements SINUS RHYTHM WITH FIRST DEGREE AV BLOCK EARLY PRECORDIAL R/S TRANSITION BASELINE WANDER- V5 BORDERLINE ECG COMPARED TO ECG 01/04/2020 04:57:55 FIRST DEGREE AV BLOCK NOW PRESENT Electronically Signed On 03-31-2022 16:47:21 DIGITAL PHOTOGRAPHER by Arvind Jacobsen D.O.
[2022-03-31] MEDS: SODIUM CHLORIDE 0.9% IV 1,000 ML 999 ML IV CONT (16:29)
[2022-03-31 16:31] LABS: Basophils Percent Auto 0.5 % (0.2-1.2); Eosinophils Absolute Auto 0.1 K/mm3 (0-0.3); Eosinophils Percent Auto 1.6 % (0-4.4); Hematocrit 37.8 % (42.0-52.0); Hemoglobin 12.6 g/dL (14.0-18.0); Immature Granulocyte Absolute 0.01 K/mm3 (0.00-0.031); Immature Granulocyte Percent A 0.2 % (0-0.5); Lymphocytes Percent Auto 13.9 % (18.3-44.2); Mean Corpuscular HGB Conc 33.3 g/dl (32-36); Mean Corpuscular Hemoglobin 31.5 pg (26-34); Mean Corpuscular Volume 94.5 fl (80-100); Mean Platelet Volume 9.2 fl (7.4-10.4); Monocytes Absolute Auto 0.5 K/mm3 (0.1-0.6); Monocytes Percent Auto 9.2 % (2.6-8.5); Neutrophils Absolute Auto 4.3 K/mm3 (1.3-6.7); Neutrophils Percent Auto 74.6 % (45.5-73.1); Platelet Count Result 228 k/mm3 (150-375); Red Cell Distribution Width 13.2 % (11.5-14.5); White Blood Count 5.7 K/mm3 (4.5-10.0)
[2022-03-31 16:39] LABS: Alanine Aminotransferase 25 U/L (6-50); Albumin Level 4.3 g/dL (3.5-5.1); Alkaline Phosphatase 45 U/L (38-126); Anion Gap 11 mmol/L (8-16); Aspartate Amino Transferase 31 U/L (17-59); Bilirubin,Total 0.5 mg/dL (0.2-1.3); Blood Urea Nitrogen 18 mg/dL (9-20); Carbon Dioxide 26 mmol/L (22-30); Chloride 102 mmol/L (98-107); Estimated CRCL calculation 53 ml/min; Estimated Glomerular Filt Rate > 60; Glucose 125 mg/dL (65-110); Potassium 3.8 mmol/L (3.4-5.0); Sodium 139 mmol/L (137-145)
[2022-03-31 16:54] LABS: Troponin I < 0.012 ng/mL (0.000-0.034)
[2022-03-31 17:07] LABS: Influenza A QL RT-PCR Negative (Negative); Influenza B QL RT-PCR Negative (Negative); RSV RNA, RT-PCR Negative (Negative); SARS-CoV-2 RNA PCR Negative
[2022-03-31 17:28] LABS: Appearance Urine Slightly Cloudy (Clear); Bilirubin Urine Negative (Negative); Blood Urine Negative (Negative); Color Urine Yellow (Yellow); Glucose Urine UA Negative (Negative); Ketones Urine Trace mg/dL (Negative); Leukocyte Esterase Ur 2+ LEU/UL (Negative); Nitrate Urine Negative (Negative); Protein Urine 2+ mg/dL (Negative); Specific Grav Ur 1.015 (1.001-1.035); Urobilinogen Urine 0.2 mg/dL (<2.0)
[2022-03-31 17:58] LABS: Add Urine Microscopic? YES; Bacteria Urine Trace /hpf; Mucus Urine Rare /lpf; RBC Urine 0-2 /hpf (0-2); Squamous Epithelial Cell Urine Rare /hpf (Few); WBC Urine >75 /hpf
--- NOTE | 2022-03-31 19:04 | ED.GENADULT ---
HPI - General Adult General Chief complaint: Recheck/Abnormal Lab/Rx Stated complaint: low bp Time Seen by Provider: 03/31/22 15:55 History of Present Illness HPI narrative: Patient is an 81-year-old male who presents ER with concerns for low blood pressure. He was outside helping his do lawn work when he got lightheaded and nauseous. He thought he might pass out. took blood pressure and has been running in the 90s. Patient has history of sepsis from UTI in the past is worried. Patient self caths at home. He takes cephalexin daily. Denies any recent fevers or chills or sweats. No chest pain or chest pressure. No loss of consciousness. No change in his urine. Related Data Home Medications Medication Instructions Recorded Confirmed cholecalciferol (vitamin D3) 125 125 mcg PO DAILY 12/30/19 03/01/22 mcg (5,000 unit) tablet multivitamin,mi-ffmn-swxzhycd 1 tablet PO DAILY 12/30/19 03/01/22 (Complete Multivitamin tablet) omega 1-sbx-ruy-fish oil 1,000 mg 1 cap PO DAILY 12/30/19 03/01/22 (120 mg-180 mg) capsule (Fish Oil) ascorbic acid (vitamin C) 1,000 mg 1 g PO DAILY 05/17/21 03/01/22 tablet (Vitamin C) aspirin 81 mg capsule 81 mg PO DAILY 05/17/21 03/01/22 tamsulosin 0.4 mg capsule 0.4 mg PO DAILY 05/17/21 03/01/22 zinc 50 mg tablet 50 mg PO DAILY 05/17/21 03/01/22 cyanocobalamin (vitamin B-12) 2,500 mcg PO DAILY 08/24/21 03/01/22 5,000 mcg capsule cephalexin 500 mg capsule 500 mg PO Q12H 03/01/22 Allergies Allergy/AdvReac Type Severity Reaction Status Date / Time morphine AdvReac Severe Hypotension Verified 03/31/22 16:40 Review of Systems Review of Systems: All systems reviewed & are unremarkable except as noted in HPI and below Constitutional: Constitutional: Denies chills and Denies fever(s) ENT: Denies nasal congestion and Denies sore throat Cardiovascular: Cardiovascular: Denies chest pain, Denies rapid heart rate and Denies radiating jaw, neck or arm pain Respiratory: Respiratory: Denies cough and Denies dyspnea Gastrointestinal: Gastrointestinal: Denies abdominal pain, Denies nausea and Denies vomiting Genitourinary: Genitourinary: Denies dysuria and Denies urinary frequency Comments: Chronic urinary Neurologic: Reports dizziness, Denies headache(s) and Denies focal weakness PMFSH Past Medical History Medical History COVID-19 Diverticulitis Hyperlipidemia Hypertension Nephrolithiasis Pneumonia Surgical History Surgical History History of prostate surgery SP TURP for BPH Previous back surgery Family History Family History Sibling Hypertension Malignant neoplasm of prostate Patient's brother is Mother Family history of malignant neoplasm of breast in first degree relative Family history of malignant neoplasm of urinary bladder Patient's mother is Father Patient's father is Social History Social History Smoking status: Never smoker Second hand tobacco smoke exposure: No Alcohol intake: never Substance use: never Substance use type: does not use Gender identity (if verbalized by the patient): Male Spiritual care concerns: No Exam Narrative: GENERAL: Well-appearing, well-nourished, and in no acute distress. HEAD: Normocephalic, atraumatic. EYES: PERRL and EOMI. CHEST: Clear to auscultation. No respiratory distress. HEART: Regular rate and rhythm. Normal peripheral pulses. ABDOMEN: Soft, nontender, nondistended. EXTREMITIES: Normal range of motion. No edema. SKIN: Warm, dry, no rash. NEURO: Alert and oriented x3. PSYCH: Normal mood and affect. Course Course Emergency Course: Patient resting comfortably. Blood pressure improved with fluids. Will treat urin
== END 2022-03-31 19:32 | disposition home or self-care (01) ==
PROVIDERS: Emergency Provider Emergency Medicine; PCP Internal Medicine
DX: N39.0 Urinary tract infection, site not specified (principal); I95.9 Hypotension, unspecified; Z20.822 Contact with and (suspected) exposure to COVID-19; E78.5 Hyperlipidemia, unspecified; I10 Essential (primary) hypertension; Z87.01 Personal history of pneumonia (recurrent); Z86.16 Personal history of COVID-19; Z87.442 Personal history of urinary calculi; Z79.82 Long term (current) use of aspirin; I44.0 Atrioventricular block, first degree
CPT/HCPCS: 36415; 80053; 81001; 84484; 85025; 87077; 87086; 87186; 87637; 93005; 96360; 96361; 99283; J7030

== ENCOUNTER 2022-11-18 13:19 | Outpatient (CLI) | payer OTHER, SELFPAY ==
--- NOTE | ~2022-11-18 | US_ITS ---
EXAMINATION: US carotid duplex BI DATE: 11/18/2022 13:57 INDICATION: Syncope and collapse TECHNIQUE: Grayscale, color Doppler, and pulsed Doppler images of the cervical carotid arteries were obtained. The degree of vessel stenosis is placed in one of the following categories: normal, <50%, 5 0-69%, >=70% but less than near-occlusion, near-occlusion, or total occlusion. Note that percent sten osis relative to normal distal artery lumen diameter is indirectly measured from velocity measurement s as described by Aryan, et al. Radiology 2003; 229:340-346. COMPARISON: None. FINDINGS: RIGHT: The right common carotid artery (CCA) peak systolic velocity (PSV) is 98 cm/s. The right internal car otid artery (ICA) PSV is 48 cm/s. The right ICA end-diastolic velocity (EDV) is 13 cm/s. The right IC A/CCA PSV ratio is 0.5. Grayscale and color Doppler images yield an estimate of <50% diameter reducti on from plaque in the ICA. The external carotid artery (ECA) PSV is 87 cm/s. There is antegrade flow in the right vertebral artery. LEFT: The left CCA PSV is 91 cm/s. The left ICA PSV is 57 cm/s. The left ICA EDV is 18 cm/s. The left ICA/C CA PSV ratio is 0.6. Grayscale and color Doppler images yield an estimate of <50% diameter reduction from plaque in the ICA. The ECA PSV is 54 cm/s. There is antegrade flow in the left vertebral artery. IMPRESSION: 1. <50% stenosis in the right internal carotid artery. 2. <50% stenosis in the left internal carotid artery. Reviewed, dictated and finalized at location A.
== END 2022-11-18 13:20 | disposition home or self-care (01) ==
PROVIDERS: PCP Family Medicine; Visit Provider Family Medicine
DX: R55 Syncope and collapse (principal); I65.23 Occlusion and stenosis of bilateral carotid arteries
CPT/HCPCS: 93880

== ENCOUNTER 2022-12-05 13:21 | Outpatient (CLI) | payer OTHER, SELFPAY ==
--- NOTE | 2022-12-05 14:12 | ECHO_ITS ---
Patient Info Name: Hermes Killian Age: 82 years : 1940 Gender: Male Ht: 67 in Wt: 190 lbs BSA: 2.04 m2 HR: 77 bpm BP: 124 / 74 mmHg Heart Rhythm: Sinus Rhythm Technical Quality: Good Exam Date: 12/05/2022 2:21 PM Exam Location: [facility] Pulmonary Patient Status: Outpatient Admit Date: 12/05/2022 Staff Ordering Physician: Jeffery Robles MD Core Winding Operator: Cat Diaz RDCS Attending Provider: Jeffery Robles MD Exam Type: CA echo doppler color flow Study Info Indications R06.09 - Other forms of dyspnea Complete two-dimensional, color flow and Doppler transthoracic echocardiogram is performed. Summary 1. Complete two-dimensional, color flow and Doppler transthoracic echocardiogram is performed. 2. Left ventricular chamber dimension is normal. 3. Left ventricular systolic function is normal, estimated at 60-65%. 4. The left ventricular diastolic function is grade I diastolic dysfunction. 5. E/e' 10 is mildly elevated. Left Ventricle E/e' 10 is mildly elevated. Left ventricular chamber dimension is normal. Left ventricular systolic function is normal, estimated at 60-65%. The left ventricular diastolic function is grade I diastolic dysfunction. Right Ventricle Right ventricular systolic function is normal and with normal TAPSE 2.1 cm. Right ventricular chamber dimension is normal. Left Atria Left atrial chamber dimension is normal. Right Atria Right atrial chamber dimension is normal. Aortic Valve The aortic valve is trileaflet. There is no aortic valve stenosis. There is no aortic valve regurgitation. Pulmonic Valve There is no pulmonic regurgitation. Mitral Valve There is no mitral valve stenosis. There is no mitral valve regurgitation. Tricuspid Valve There is no tricuspid valve regurgitation. Pericardium/Pleural There is no pericardial effusion. Inferior Vena Cava Normal inferior vena cava with >50% collapse upon inspiration consistent with normal right atrial pressure, 5 mmHg. Aorta The aortic root size at the sinus of Valsalva is normal. Left Ventricular Outflow Tract Name Value Normal LVOT 2D LVOT Diameter 2.2 cm LVOT Doppler LVOT Peak Gradient 4 mmHg LVOT Mean Gradient 2 mmHg LVOT VTI 20 cm LVOT VTI/AV VTI Ratio 0.8 LVOT Stroke Volume 73 ml LVOT CO 5.4 l/min LVOT CI 2.6 l/min/m2 Pulmonic Valve Name Value Normal RVOT Doppler RVOT Peak Gradient 1 mmHg PV Doppler PV Peak Gradient 3 mmHg Mitral Valve Name Value Normal
== END 2022-12-05 13:22 | disposition home or self-care (01) ==
PROVIDERS: PCP Family Medicine; Visit Provider Family Medicine
DX: R06.09 Other forms of dyspnea (principal)
CPT/HCPCS: 93306

== ENCOUNTER 2024-03-13 16:44 | Emergency (ER) | payer OTHER, SELFPAY ==
--- NOTE | ~2024-03-13 | CT_ITS ---
EXAMINATION: CT cervical spine wo con DATE: 03/13/2024 17:36 INDICATION: Fall with head injury TECHNIQUE: Computed tomography (CT) of the cervical spine was performed without intravenous contrast. Automated exposure control and iterative reconstruction technique were employed. The dose-length pro duct was 251.42 mGy-cm. COMPARISON: None FINDINGS: 2 mm anterolisthesis C7 on T1. Severe osteoarthritis at the atlantoaxial articulation with some surro unding calcite pannus formation. Vertebral body heights are normal. No acute fracture. Moderate disc height loss and anterior fusion along the periphery of the C5-C6 disc space. Mild disc height loss at C2-C3 through C4-C5 and at C7-T1. Mild hypertrophic changes posteriorly at C5-6 contributing to mild central canal stenosis at this level. Severe uncovertebral osteoarthritis with possible developing f usion on the right at C3-C4. Moderate uncovertebral osteoarthritis on the left at C3-C4 and bilateral ly at C4-C5. Additional mild uncovertebral osteoarthritis at many of the cervical spine. Multilevel s evere cervical facet osteoarthritis on the left from C2-C3 through C7-T1 and on the right at C7-T1, T 2-T3 and T3-T4. There is fusion across the right C3-C4 and C5-C6 facet joints. Moderate facet osteoar thritis at the remaining levels. The skin surface to moderate neural foraminal stenosis bilaterally a t C3-C4, on the left at C4-C5 and mild neural foraminal stenosis throughout the remainder of the cerv ical spine. Atherosclerotic calcification is at the bilateral carotid bulbs. Cervical soft tissues ar e otherwise unremarkable. Mild emphysema at the left apex. IMPRESSION: 1. Moderate cervical spondylosis with severe multilevel facet osteoarthritis. No acute osseous abnorm ality. Reviewed, dictated and finalized at location A. IMPRESSION: 1. Moderate cervical spondylosis with severe multilevel facet osteoarthritis. N o acute osseous abnormality.
--- NOTE | ~2024-03-13 | CT_ITS ---
EXAMINATION: CT brain wo con DATE: 03/13/2024 17:36 INDICATION: Fall with head injury TECHNIQUE: Computed tomography (CT) of the head was performed without intravenous contrast. Sagittal and coronal reconstructions were performed. The mA was adjusted according to patient size. Iterative reconstruction technique was employed. The dose-length product was 605.33 mGy-cm. COMPARISON: head CT dated 01/04/2020 FINDINGS: No fracture. No acute intracranial hemorrhage, acute infarction or abnormal extra axial fluid collect ion. There is mild scattered white matter hypoattenuation consistent with chronic small vessel ischem ic disease. Unchanged symmetric prominence of the sulci and ventricles consistent with moderate age-a ppropriate diffuse cerebral volume loss. No mass/mass effect. Changes of bilateral intraocular lens r eplacement. The orbits, paranasal sinuses and mastoid air cells are normal. IMPRESSION: 1. No fracture or acute intracranial process. 2. Age-related changes including moderate diffuse volume loss and mild scattered white matter hypoatt enuation consistent with chronic small vessel ischemic disease. Reviewed, dictated and finalized at location A. IMPRESSION: 1. No fracture or acute intracranial process. 2. Age-related changes including moderate diffuse volume loss and mild scattere d white matter hypoattenuation consistent with chronic small vessel ischemic di sease.
--- NOTE | ~2024-03-13 | XR_ITS ---
EXAMINATION: XR shoulder LT min 2V DATE: 03/13/2024 17:46 INDICATION: Left shoulder injury post fall TECHNIQUE: AP and transscapular Y views of the left shoulder were obtained. COMPARISON: None FINDINGS: Normal alignment. No fracture.Mild left glenohumeral and acromioclavicular osteoarthritis. Chondroca lcinosis versus calcific debris at the cephalad aspect of the acromioclavicular joint. Severe lower c ervical facet osteoarthritis. Soft tissues are unremarkable. IMPRESSION: Mild left glenohumeral and acromioclavicular osteoarthritis. No acute osseous abnormality. Reviewed, dictated and finalized at location A. IMPRESSION: Mild left glenohumeral and acromioclavicular osteoarthritis. No acute osseous a bnormality.
--- NOTE | ~2024-03-13 | XR_ITS ---
EXAMINATION: XR knee LT min 4V DATE: 03/13/2024 17:46 INDICATION: Fall with left knee injury TECHNIQUE: Anteroposterior, 2 oblique and crosstable lateral views of the left knee were obtained COMPARISON: None. FINDINGS: Alignment is normal. No fracture. Prominent chondrocalcinosis in the medial and lateral compartments of the left knee. Joint spaces appear relatively preserved on nonweightbearing imaging. Small amount of enthesopathic ossification at the distal quadriceps tendon. No joint effusion/layering lipohemart hrosis. Soft tissues are unremarkable. IMPRESSION: 1. No left knee joint effusion or acute osseous abnormality. 2. Prominent chondrocalcinosis at the medial and lateral compartments of the left knee. Reviewed, dictated and finalized at location A. IMPRESSION: 1. No left knee joint effusion or acute osseous abnormality. 2. Prominent chondrocalcinosis at the medial and lateral compartments of the le ft knee.
[2024-03-13 16:45] VITALS: BP 163/96; PULSE 97; RESP 17; TEMP 36.5; O2SAT 98
[2024-03-13 17:01] VITALS: BP 144/82; PULSE 79; RESP 16; TEMP 36.5; O2SAT 98
--- NOTE | 2024-03-13 17:19 | ED.FALL ---
HPI - Fall General Chief Complaint: Fall Stated Complaint: fall Time Seen by Provider: 03/13/24 17:00 History of Present Illness HPI Narrative: 83-year-old male presents with his at bedside for ground level fall that occurred prior to arrival. Patient states he was stepping up onto his patio when he tripped and fell. He landed on his left shoulder and hit the left side of his head. He is also reporting pain and abrasion to his left knee. He denies LOC. He is not anticoagulated but is on daily 81 mg of aspirin. He denies neck pain, back pain, vision changes, focal numbness or weakness. Denies other injuries acquired. Last Tdap unknown. Related Data Home Medications Medication Instructions Recorded Confirmed multivitamin,id-sgwo-ilbolmbc 1 tablet PO DAILY 12/30/19 12/21/23 (Complete Multivitamin tablet) omega 0-tbj-emz-fish oil 1,000 mg 1 cap PO DAILY 12/30/19 12/21/23 (120 mg-180 mg) capsule (Fish Oil) ascorbic acid (vitamin C) 1,000 mg 1 g PO DAILY 05/17/21 12/21/23 tablet (Vitamin C) aspirin 81 mg capsule 81 mg PO DAILY 05/17/21 12/21/23 tamsulosin 0.4 mg capsule 0.4 mg PO DAILY 05/17/21 12/21/23 zinc 50 mg tablet 50 mg PO DAILY 05/17/21 12/21/23 cyanocobalamin (vitamin B-12) 2,500 mcg PO DAILY 08/24/21 12/21/23 5,000 mcg capsule cephalexin 500 mg tablet 500 mg PO DAILY 10/05/22 12/21/23 cholecalciferol (vitamin D3) 125 5,000 unit PO DAILY 11/15/22 12/21/23 mcg (5,000 unit) tablet Allergies Allergy/AdvReac Type Severity Reaction Status Date / Time morphine AdvReac Severe Hypotension Verified 10/05/22 13:09 Review of Systems Review of Systems: All systems reviewed & are unremarkable except as noted in HPI and below PMFSH Past Medical History Medical History Acute UTI Anemia hemoglobin 12.6 on 03/31/2022. Hemoglobin 13.4, iron 75 with 23% saturation and ferritin 192 with vitamin B12 2000 and folic acid 20 on 11/16/2022. Hemoglobin 13.8 with vitamin B12 1117 on 12/06/2023. At moderate risk for fall Atherosclerosis of aorta Bacteremia due to Klebsiella pneumoniae Balanitis BMI 29.0-29.9,adult Complicated UTI (urinary tract infection) COVID-19 Dermatitis (~09/2022) upper extremity Diverticulitis Diverticulum of bladder Dyspnea on exertion Echocardiogram on 12/05/2022 revealed ejection fraction of 60-65% with grade 1 diastolic dysfunction. Enlarged prostate without lower urinary tract symptoms (luts) Hematuria Hypertension Hypoxia Overnight oxygen saturation study 06/29/2016 with nocturnal hypoxemia with baseline of 89.8% and desaturation to 57%. Leukocytosis Near syncope (~10/2022) Carotid Doppler study on 11/18/2022 was normal. Nephrolithiasis [place] drug therapy ALFREDA (obstructive sleep apnea) failure on CPAP. Elevation of head of bed. Overweight (04/27/16) Overweight (BMI 25.0-29.9) Pneumonia Psychosexual dysfunction with inhibited sexual excitement Seasonal allergic rhinitis Sensation of pressure in bladder area Septicemia Serum potassium elevated Potassium elevated at 5.6, repeated at 4.7 on 10/28/2022. Potassium 5.4 on 12/08/2023. Severe sepsis Skin lesions, generalized Syncope and collapse Testicular hypofunction Urinary tract infection due to Klebsiella species Surgical History Surgical History History of prostate surgery SP TURP for BPH Previous back surgery Family History Family History Sibling Hypertension Malignant neoplasm of prostate Patient's brother is Mother Family history of malignant neoplasm of breast in first degree relative Family history of malignant neoplasm of urinary bladder Patient's mother is Father Patient's father is Social History Social History Smoking status: Never smoker Second hand tobacco smoke exposure: No Alcohol intake: never Substance use: never Substance use type: does not use Lack of Transportation: No Lack of Food: Never True Current Housing: I Have Housing Concerned About Future Housing: No Difficulty Paying Gas/Electric Bills: No Difficulty Paying for Meds: No Currently Unemployed: No Education: High School Diploma/GED Difficulty w/ Childcare or Family Care: No Living arrangements: with family Gender identity (if verbalized by the patient): Male Spiritual care concerns: No Exam Narrative: GENERAL: Well-appearing, well-nourished, and in no acute distress. HEAD: Normocephalic, atraumatic. No ecchymosis, crepitus, step-offs, deformities or abrasions EYES: PERRLA and EOMI. ENT: Nares clear, no rhinorrhea or epistaxis. Mucous membranes moist. NECK: No midline cervical spinous tenderness, step-offs or deformities BACK: No midline thoracolumbar spinous tenderness, step-offs or deformities CHEST: Clear to auscultation. No respiratory distress. No tenderness to chest wall HEART: Regular rate and rhythm. No murmur heard. Normal peripheral pulses. ABDOMEN: Soft, nontender, nondistended, normal active bowel sounds. EXTREMITIES: LUE: Tenderness to the left proximal humerus without obvious deformity or edema. No tenderness remainder of extremity. Radial pulse 2 +. , median, radial, ulnar and axillary nerves are intact. Full range of motion of elbow and wrist with limited range of motion to the shoulder secondary to pain. LLE: Superficial abrasions to the anterior aspect of the left knee with tenderness, no deformity or edema. Full active and passive range of motion of knee and hip. DP pulse 2 +. Sensation intact. No tenderness remainder of extremities. SKIN: Superficial abrasions to the anterior aspect of the left knee NEURO: No focal deficits. Alert and oriented x3 Course Vital Signs Vital signs: Vital Signs Temperature 97.7 F 03/13/24 16:45 Pulse Rate 97 03/13/24 16:45 Respiratory Rate 17 03/13/24 16:45 Blood Pressure 163/96 H 03/13/24 16:45 Pulse Oximetry 98 03/13/24 16:45 Oxygen Delivery Room Air 03/13/24 16:45 Temperature 97.7 F 03/13/24 17:01 Pulse Rate 79 03/13/24 17:01 Respiratory Rate 16 03/13/24 17:01 Blood Pressure 144/82 H 03/13/24 17:01 Pulse Oximetry 98 03/13/24 17:01 Oxygen Delivery Room Air 03/13/24 16:45 MDM - Fall MDM Narrative Medical decision making narrative: 83-year-old male presents to the ED for ground level fall that occurred prior to arrival. He did hit his head but denies LOC. He is complaining of left shoulder and knee pain. Vitals with hypertension of 144/82, otherwise unremarkable. Exam is significant for the above. CT brain shows no acute findings. CT cervical spine shows moderate cervical spondylosis with severe multilevel facet osteoarthritis, no acute osseous abnormality. X-ray of the left shoulder shows mild left glenohumeral and acromioclavicular osteoarthritis with no acute osseous abnormality. Left knee x-ray shows no acute osseous abnormality or left knee joint effusion. Workup was discussed with the patient and at bedside. His Tdap was updated and he was given Tylenol, Flexeril and lidocaine patch for his shoulder pain. He was placed in a left arms sling and was advised to follow-up closely with orthopedist as he may need an MRI for further evaluation. I discussed strict ED return precautions. He had his are agreeable to plan verbalized understanding. Discharged in stable condition. Discharge Plan Discharge Clinical Impression: Abrasion Closed head injury Qualifiers: Encounter type: initial encounter Qualified Code(s): S09.90XA - Unspecified injury of head, initial encounter Left shoulder strain Qualifiers: Encounter type: initial encounter Qualified Code(s): S46.912A - Strain of unspecified muscle, fascia and tendon at shoulder and upper arm level, left arm, initial encounter Contusion of knee, left Qualifiers: Encounter type: initial encounter Qualified Code(s): S80.02XA - Contusion of left knee, initial encounter Patient Disposition: Home, Self-Care Condition: Stable Instructions: Antibiotic Form, Rotator Cuff Injury (ED), Contusion in Adults (ED), Abrasion (ED), Shoulder Pain (ED) Additional Instructions: Your evaluated in the emergency department after a fall. The CT of your brain, neck, shoulder and knee show no acute findings. You do have arthritis in your neck, shoulder and knee. You need to follow-up with orthopedics for further evaluation of your left shoulder pain and may need an MRI. Please take medications as needed as directed. Return to the emergency department if you develop significantly worsening pain, vision changes, focal numbness or weakness, or other concerning symptoms. Prescriptions: New acetaminophen 500 mg capsule 500 mg PO Q6H PRN (Reason: pain) Qty: 30 0RF lidocaine 5 % adhesive patch,medicated 1 patch topical DAILY Qty: 15 0RF Rx Instructions: leave on most painful area for up to 12 hrs. do not use more than 1 patch in a 24-hour period. cyclobenzaprine 5 mg tablet 5 mg PO TID PRN (Reason: muscle spasm) Qty: 14 0RF No Action cyanocobalamin (vitamin B-12) 5,000 mcg capsule 2,500 mcg PO DAILY Hold Instructions: Resume on 01/08/20. cholecalciferol (vitamin D3) 125 mcg (5,000 unit) tablet 5,000 unit PO DAILY Hold Instructions: Resume on 01/08/20. Patient Comments: mupirocin 2 % ointment 1 applic topical BID Qty: 22 5RF Rx Instructions: apply to rash twice daily until clear nystatin 100,000 unit/gram ointment 1 applic topical BID Qty: 30 3RF Rx Instructions: apply to rash twice daily until clear for yeast cephalexin 500 mg tablet 500 mg PO DAILY Patient Comments: per urologist Complete Multivitamin Tablet 1 tablet PO DAILY Rx Instructions: Will restart on Jan 07 omega 0-lea-yem-fish oil [Fish Oil] 1,000 mg (120 mg-180 mg) Capsule 1 cap PO DAILY Hold Instructions: Resume on 01/08/20. ascorbic acid (vitamin C) [Vitamin C] 1,000 mg Tablet 1 g PO DAILY tamsulosin 0.4 mg capsule 0.4 mg PO DAILY zinc 50 mg Tablet 50 mg PO DAILY aspirin 81 mg Capsule 81 mg PO DAILY enalapril maleate 20 mg tablet 20 mg PO DAILY Qty: 90 3RF fluticasone propionate 50 mcg/actuation spray,suspension 1 spray NASAL BID Qty: 16 11RF Rx Instructions: administer into each nostril pantoprazole 40 mg tablet,delayed release (DR/EC) 40 mg PO DAILY Qty: 90 3RF Follow-up/Referrals: Jeffery Robles MD [Primary Care Provider] - Ariel Yadav MD [Physician] - 1 Day
[2024-03-13] MEDS: TETANUS,DIPHTHERIA,AC PERTUSSIS ADULT (0.5 ML) BOOSTRIX IM (18:02)
[2024-03-13] MEDS: ACETAMINOPHEN 325 MG TABLET 650 MG PO (19:16)
[2024-03-13] MEDS: LIDOCAINE 5% PATCH 1 PATCH TRANSDERM (19:17)
[2024-03-13] MEDS: CYCLOBENZAPRINE HCL 5 MG TABLET PO (19:17)
[2024-03-13 19:22] VITALS: BP 132/87; RESP 18; O2SAT 84
== END 2024-03-13 19:23 | disposition home or self-care (01) ==
PROVIDERS: Emergency Provider Physician Assistant; PCP Family Medicine
DX: S09.90XA Unspecified injury of head, initial encounter (principal); S46.912A Strain of unspecified muscle, fascia and tendon at shoulder and upper arm level, left arm, initial encounter; S80.212A Abrasion, left knee, initial encounter; S80.02XA Contusion of left knee, initial encounter; Z23 Encounter for immunization; I70.0 Atherosclerosis of aorta; I10 Essential (primary) hypertension; E66.3 Overweight; Z68.29 Body mass index [BMI] 29.0-29.9, adult; N40.0 Benign prostatic hyperplasia without lower urinary tract symptoms; G47.33 Obstructive sleep apnea (adult) (pediatric); Z87.442 Personal history of urinary calculi; Z87.440 Personal history of urinary (tract) infections; Z87.01 Personal history of pneumonia (recurrent); Z86.2 Personal history of diseases of the blood and blood-forming organs and certain disorders involving the immune mechanism; Z86.16 Personal history of COVID-19; W01.0XXA Fall on same level from slipping, tripping and stumbling without subsequent striking against object, initial encounter; M47.812 Spondylosis without myelopathy or radiculopathy, cervical region; M19.012 Primary osteoarthritis, left shoulder; M11.262 Other chondrocalcinosis, left knee; Z79.82 Long term (current) use of aspirin; Z79.899 Other long term (current) drug therapy
CPT/HCPCS: 70450; 72125; 73030; 73564; 90471; 90715; 99284; A4565; A9270

== ENCOUNTER 2024-09-17 07:05 | Outpatient (CLI) | payer OTHER, SELFPAY ==
[2024-09-17 07:20] VITALS: BP 135/73; PULSE 66; RESP 14; TEMP 36.6
== END 2024-09-17 07:06 | disposition home or self-care (01) ==
LOC: ANHVASCINF 07:07
PROVIDERS: PCP Family Medicine; Visit Provider Nurse Practitioner Family
DX: N39.0 Urinary tract infection, site not specified (principal)
CPT/HCPCS: 36569; 96365; C1751; J0713

== ENCOUNTER 2024-09-24 10:26 | Outpatient (CLI) | payer OTHER, SELFPAY | END 2024-09-24 10:27 | disposition home or self-care (01) | PROVIDERS: PCP Family Medicine; Visit Provider Nurse Practitioner Family | DX: N39.0 Urinary tract infection, site not specified (principal) | CPT/HCPCS: 99211; G0463 ==

== ENCOUNTER 2024-10-17 11:56 | Emergency (ER) | payer OTHER, SELFPAY ==
[2024-10-17] VITALS (7 sets, daily range): BP systolic 138–156; BP diastolic 80–107; PULSE 70–88; RESP 14–19; TEMP 36.7–36.9; O2SAT 95–100
--- NOTE | ~2024-10-17 | XR_ITS ---
Portable chest x-ray Comparison: 05/17/2021 Clinical History: Weakness Findings: Lungs are clear, without focal consolidation or pleural effusion. Cardiomediastinal silho uette is stable. Bones and soft tissues are unremarkable. Impression: Clear lungs. Reviewed, dictated and finalized at location . Impression: Clear lungs.
--- NOTE | ~2024-10-17 | CT_ITS ---
EXAMINATION: CT chest abdomen pelvis w con DATE: 10/17/2024 14:50 INDICATION: Possible sepsis TECHNIQUE: Computed tomography (CT) of the chest, abdomen, and pelvis was performed with 100 mL Omnip aque-350 intravenous contrast. Automated exposure control and iterative reconstruction technique were employed. The dose-length product was 763.82 mGy-cm. COMPARISON: CT dated 01/04/2020 and 12/19/2019 FINDINGS: CHEST CT: Mild discoid atelectasis at the lingula. Calcified granuloma versus calcified pleural plaque along th e lateral dome of the right hemidiaphragm. No interval change in a couple additional likely benign sm all noncalcified pulmonary nodules measuring 4 mm at the right apex and 2-3 mm along the inferior rig ht major fissure. No pneumonia, pulmonary edema, pleural effusion or pneumothorax. Heart size normal. Atherosclerotic coronary artery calcification. Thoracic aorta is normal in caliber with no dissectio n. No pathologically enlarged thoracic lymphadenopathy. Small sliding-type hiatal hernia. Mild to mod erate thoracic spondylosis with bridging osteophytes at multiple levels consistent with diffuse idiop athic skeletal hyperostosis (DISH). ABDOMEN/PELVIS CT: Liver, gallbladder, spleen, pancreas and bilateral adrenal glands are normal. Mild bilateral hydroure teronephrosis extending to the distended bladder with small diverticulum along the posterior bladder wall suggestive of sequela of chronic outlet obstruction. Prostate is mildly enlarged to 4.0 x 3.4 cm with of a 2.5 cm region of focal increased attenuation at the right peripheral zone of the prostate. There are moderate-sized bilateral fat-containing inguinal hernias. There is extensive diverticulosi s throughout the colon without adjacent from trace stranding to suggest diverticular colitis. Small b owel and appendix are normal. No abscess or free intraperitoneal gas. No pathologically enlarged abdo jim or pelvic lymphadenopathy. Moderate to severe lumbar spondylosis with chronic mild anterior wed ging at T12-L2. IMPRESSION: 1. No acute cardiopulmonary disease. 2. Small sliding-type hiatal hernia. 3. Mild bilateral hydroureteronephrosis joint with distention of the bladder and a small bladder dive rticula suggests outlet obstruction. 4. Prostatomegaly with 2.5 cm nodular region of increased enhancement/attenuation at the right periph eral zone. Consider correlation with PSA level. 5. Moderate-sized bilateral fat-containing inguinal hernias. 6. Extensive diverticulosis. Reviewed, dictated and finalized at location A. IMPRESSION: 1. No acute cardiopulmonary disease. 2. Small sliding-type hiatal hernia. 3. Mild bilateral hydroureteronephrosis joint with distention of the bladder an d a small bladder diverticula suggests outlet obstruction. 4. Prostatomegaly with 2.5 cm nodular region of increased enhancement/attenuati on at the right peripheral zone. Consider correlation with PSA level. 5. Moderate-sized bilateral fat-containing inguinal hernias. 6. Extensive diverticulosis.
--- NOTE | 2024-10-17 13:02 | ECG_ITS ---
Test Date: 2024-10-17 13:20:35 Measurements Intervals [place] Rate: 74 P: 27 [place]: 246 QRS: 5 QRSD: 104 T: 46 QT: 407 QTc: 453 Interpretive Statements SINUS RHYTHM WITH FIRST DEGREE AV BLOCK No previous ECG available for comparison Electronically Signed On 10-18-2024 11:05:46 CDT by Janice Scanlon M.D.
[2024-10-17 13:24] LABS: Basophils Percent Auto 0.7 % (0.2-1.2); Eosinophils Absolute Auto 0.1 K/mm3 (0-0.3); Eosinophils Percent Auto 1.3 % (0-4.4); Hemoglobin 13.5 g/dL (14.0-18.0); Immature Granulocyte Absolute 0.02 K/mm3 (0.00-0.031); Immature Granulocyte Percent A 0.4 % (0-0.5); Lymphocytes Percent Auto 24.5 % (18.3-44.2); Mean Corpuscular HGB Conc 32.1 g/dl (32-36); Mean Corpuscular Hemoglobin 30.5 pg (26-34); Mean Corpuscular Volume 94.8 fl (80-100); Mean Platelet Volume 9.4 fl (7.4-10.4); Monocytes Absolute Auto 0.5 K/mm3 (0.1-0.6); Monocytes Percent Auto 10.5 % (2.6-8.5); Neutrophils Absolute Auto 2.8 K/mm3 (1.3-6.7); Neutrophils Percent Auto 62.6 % (45.5-73.1); Platelet Count Result 200 k/mm3 (150-375); Red Blood Count 4.43 M/mm3 (4.6-6.20); Red Cell Distribution Width 13.2 % (11.5-14.5); White Blood Count 4.5 K/mm3 (4.5-10.0)
[2024-10-17] MEDS: SODIUM CHLORIDE 0.9% IV 1,000 ML 999 ML IV CONT ×2 (13:48→14:38)
[2024-10-17 14:17] LABS: Alanine Aminotransferase 27 U/L (6-50); Albumin Level 4.4 g/dL (3.5-5.1); Alkaline Phosphatase 71 U/L (38-126); Anion Gap 10 mmol/L (4-12); Aspartate Amino Transferase 40 U/L (17-59); Bilirubin,Total 0.6 mg/dL (0.2-1.3); Blood Urea Nitrogen 12 mg/dL (9-20); Calcium 9.6 mg/dL (8.4-10.2); Carbon Dioxide 24 mmol/L (22-30); Chloride 101 mmol/L (98-107); Estimated Glomerular Filt Rate > 60; Glucose 96 mg/dL (65-110); Magnesium 1.7 mg/dL (1.6-2.3); Potassium 3.9 mmol/L (3.4-5.0); Sodium 135 mmol/L (137-145)
[2024-10-17 14:23] LABS: Add Urine Microscopic? YES; Appearance Urine Clear (Clear); Bacteria Urine None Seen /hpf; Bilirubin Urine Negative (Negative); Blood Urine Negative (Negative); Color Urine Yellow (Yellow); Glucose Urine UA Negative (Negative); Ketones Urine Negative (Negative); Leukocyte Esterase Ur Trace LEU/UL (Negative); Need Manual Microscopic Reviewed; Nitrate Urine Negative (Negative); Non Pathogenic Casts 0-2; Protein Urine Negative (Negative); RBC Urine 0-2 /hpf (0-2); Specific Grav Ur 1.006 (1.001-1.035); Spermatozoa Urine Present; Squamous Epithelial Cell Urine None Seen /hpf (Few); Urobilinogen Urine 0.2 mg/dL (<2.0); WBC Urine 0-5 /hpf (0-3); pH Urine 8.5 (5.0-9.0)
[2024-10-17 14:24] LABS: Lactic Acid Reflex 4.4 mmol/L (0.7-2.0)
[2024-10-17 14:39] LABS: Influenza A QL RT-PCR Negative (Negative); Influenza B QL RT-PCR Negative (Negative); RSV RNA, RT-PCR Negative (Negative); SARS-CoV-2 RNA PCR Negative (Negative)
[2024-10-17 14:45] LABS: Procalcitonin 0.1 ng/mL
[2024-10-17] MEDS: MAGNESIUM SULF 1 GM/D5W 100 ML 1 GM/100 ML BAG IVPB (15:53)
[2024-10-17 15:59] LABS: Reflex Lactic Acid Yes or No Add Lactic
--- NOTE | 2024-10-17 16:27 | ED.GENADULT ---
HPI - General Adult General Chief complaint: Unspecified Stated complaint: resolved dyspnea and uncontrolled shaking Time Seen by Provider: 10/17/24 13:33 History of Present Illness HPI narrative: patient is a 83-year-old gentleman presents emergency department with chief complaint of shivering feeling weak and generalized malaise. Patient states that he has had history of sepsis before the past and has had significantly resistant urinary tract infections. Patient reports that he intermittently straight caths and reports that he has had blood checked recently did not show any significant abnormality Related Data Home Medications ?Medication ?Instructions ?Recorded ?Confirmed ?Last Taken ?Type omega 3-frn-iyy-fish oil 1,000 mg 1 cap PO DAILY 12/30/19 10/10/24 Unknown History (120 mg-180 mg) capsule (Fish Oil) aspirin 81 mg capsule 81 mg PO DAILY 05/17/21 10/10/24 Unknown History tamsulosin 0.4 mg capsule 0.4 mg PO DAILY 05/17/21 10/10/24 Unknown History zinc 50 mg tablet 50 mg PO DAILY 05/17/21 10/10/24 Unknown History cyanocobalamin (vitamin B-12) 2,500 mcg PO DAILY 08/24/21 10/10/24 Unknown History 5,000 mcg capsule cephalexin 500 mg tablet 500 mg PO DAILY 10/05/22 10/10/24 Unknown History cholecalciferol (vitamin D3) 125 5,000 unit PO DAILY 11/15/22 10/10/24 Unknown History mcg (5,000 unit) tablet Allergies Allergy/AdvReac Type Severity Reaction Status Date / Time morphine AdvReac Severe Hypotension Verified 10/10/24 15:05 Review of Systems Review of Systems: A 10 system review of systems was completed on the patient and is negative except for what is stated in the HPI. Nursing and ancillary documentation was reviewed. [facility] Past Medical History Medical History BMI 28.0-28.9,adult Functional memory problem Balanitis Seasonal allergic rhinitis At moderate risk for fall Overweight (BMI 25.0-29.9) BMI 29.0-29.9,adult Dermatitis (~09/2022) upper extremity Dyspnea on exertion Echocardiogram on 12/05/2022 revealed ejection fraction of 60-65% with grade 1 diastolic dysfunction. Anemia hemoglobin 12.6 on 03/31/2022. Hemoglobin 13.4, iron 75 with 23% saturation and ferritin 192 with vitamin B12 2000 and folic acid 20 on 11/16/2022. Hemoglobin 13.8 with vitamin B12 1117 on 12/06/2023. Near syncope (~10/2022) Carotid Doppler study on 11/18/2022 was normal. Serum potassium elevated Potassium elevated at 5.6, repeated at 4.7 on 10/28/2022. Potassium 5.4 on 12/08/2023. Potassium normal at 4.4 on 07/04/2024. ALFREDA (obstructive sleep apnea) failure on CPAP. Elevation of head of bed. 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 Nephrolithiasis Diverticulitis Pneumonia Hypertension Surgical History Surgical History History of prostate surgery SP TURP for BPH Previous back surgery Family History Family History Sibling Hypertension Malignant neoplasm of prostate Patient's brother is Mother Family history of malignant neoplasm of breast in first degree relative Family history of malignant neoplasm of urinary bladder Patient's mother is Father Patient's father is Social History Social History Smoking status: Never smoker Second hand tobacco smoke exposure: No Alcohol intake: never Substance use: never Substance use type: does not use Lack of Transportation: No Lack of Food: Never True Current Housing: I Have Housing Concerned About Future Housing: No Difficulty Paying Gas/Electric Bills: No Difficulty Paying for Meds: No Currently Unemployed: No Education: High School Diploma/GED Difficulty w/ Childcare or Family Care: No Living arrangements: with family Gender identity (if verbalized by the patient): Male Spiritual care concerns: No Exam Narrative: GENERAL: Well-appearing, well-nourished, and in no acute distress. HEAD: Normocephalic, atraumatic. EYES: PERRLA and EOMI. ENT: Nares clear, no rhinorrhea or epistaxis. Mucous membranes moist. NECK: Supple. CHEST: Clear to auscultation. No respiratory distress. HEART: Regular rate and rhythm. No murmur heard. Normal peripheral pulses. ABDOMEN: Soft, nontender, nondistended, normal active bowel sounds. EXTREMITIES: Normal range of motion. No edema. SKIN: Warm, dry, no rash. NEURO: No focal deficits. Alert and oriented x3. PSYCH: Normal mood and affect. Course Vital Signs Vital signs: Vital Signs Temperature 36.9 C 10/17/24 11:57 Pulse Rate 88 10/17/24 11:57 Respiratory Rate 16 10/17/24 11:57 Blood Pressure 156/88 H 10/17/24 11:57 Pulse Oximetry 98 10/17/24 11:57 Temperature 36.7 C 10/17/24 12:59 Pulse Rate 75 10/17/24 13:51 Respiratory Rate 18 10/17/24 13:51 Blood Pressure 138/80 10/17/24 13:51 Pulse Oximetry 99 10/17/24 13:51 Medical Decision Making Vital Signs Vital Signs: Vital Signs Temperature 36.9 C 10/17/24 11:57 Pulse Rate 88 10/17/24 11:57 Respiratory Rate 16 10/17/24 11:57 Blood Pressure 156/88 H 10/17/24 11:57 Pulse Oximetry 98 10/17/24 11:57 Temperature 36.7 C 10/17/24 12:59 Pulse Rate 75 10/17/24 13:51 Respiratory Rate 18 10/17/24 13:51 Blood Pressure 138/80 10/17/24 13:51 Pulse Oximetry 99 10/17/24 13:51 Lab Data 10/17/24 13:13 10/17/24 13:46 Labs: Lab Results 10/17/24 10/17/24 10/17/24 Range/Units 13:12 13:13 13:46 WBC 4.5 (4.5-10.0) K/mm3 RBC 4.43 L (4.6-6.20) M/mm3 Hgb 13.5 L (14.0-18.0) g/dL Hct 42.0 (42.0-52.0) % MCV 94.8 (80-100) fl MCH 30.5 (26-34) pg MCHC 32.1 (32-36) g/dl RDW 13.2 (11.5-14.5) % Plt Count 200 (150-375) k/mm3 MPV 9.4 (7.4-10.4) fl Immature Gran % (Auto) 0.4 (0-0.5) % Neut % (Auto) 62.6 (45.5-73.1) % Lymph % (Auto) 24.5 (18.3-44.2) % [place] % (Auto) 10.5 H (2.6-8.5) % Eos % (Auto) 1.3 (0-4.4) % Baso % (Auto) 0.7 (0.2-1.2) % Lymph # (Auto) 1.10 (0.9-3.2) K/mm3 [place] # (Auto) 0.5 (0.1-0.6) K/mm3 Eos # (Auto) 0.1 (0-0.3) K/mm3 Baso # (Auto) 0.0 (0.0-0.1) K/mm3 Abs Immat Gran (auto) 0.02 (0.00-0.031) K/mm3 Absolute Neuts (auto) 2.8 (1.3-6.7) K/mm3 Absolute Nucleated RBC 0.000 (0.0-0.012) K/mm3 Nucleated RBC % 0.0 (0.0-0.2) % Sodium 135 L (137-145) mmol/L Potassium 3.9 (3.4-5.0) mmol/L Chloride 101 (98-107) mmol/L Carbon Dioxide 24 (22-30) mmol/L Anion Gap 10 (4-12) mmol/L BUN 12 D (9-20) mg/dL Creatinine 0.77 (0.7-1.3) mg/dL Estim Creat Clear Calc Not Reportable Estimated GFR > 60 (59 - ) Glucose 96 (65-110) mg/dL Lactic Acid (0.7-2.0) mmol/L Calcium 9.6 (8.4-10.2) mg/dL Magnesium 1.7 (1.6-2.3) mg/dL Total Bilirubin 0.6 (0.2-1.3) mg/dL AST 40 (17-59) U/L ALT 27 (6-50) U/L Alkaline Phosphatase 71 (38-126) U/L Total Protein 7.0 (6.3-8.2) g/dL Albumin 4.4 (3.5-5.1) g/dL Procalcitonin ng/mL Urine Color (Yellow) Urine Appearance (Clear) Urine pH (5.0-9.0) Ur Specific [place] (1.001-1.035) Urine Protein (Negative) mg/dL Urine Glucose (UA) (Negative) mg/dL Urine Ketones (Negative) mg/dL Ur Blood (Man) (Negative) Urine Nitrate (Negative) Urine Bilirubin (Negative) Urine Urobilinogen (<2.0) mg/dL Add Ur Microanalysis Leukocyte Esterase Rfl (Negative) JAGDISH/UL Urine RBC (0-2) /hpf Urine WBC (0-3) /hpf Ur Squamous Epith Cells (Few) /hpf Urine Bacteria /hpf Urine Casts Sperm Presence Influenza A (RT-PCR) Negative (Negative) Influenza B (RT-PCR) Negative (Negative) RSV (RT-PCR) Negative (Negative) SARS-CoV-2 RNA (RT-PCR) Negative (Negative) 10/17/24 10/17/24 10/17/24 Range/Units 13:54 13:55 16:38 WBC (4.5-10.0) K/mm3 RBC (4.6-6.20) M/mm3 Hgb (14.0-18.0) g/dL Hct (42.0-52.0) % MCV (80-100) fl MCH (26-34) pg MCHC (32-36) g/dl RDW (11.5-14.5) % Plt Count (150-375) k/mm3 MPV (7.4-10.4) fl Immature Gran % (Auto) (0-0.5) % Neut % (Auto) (45.5-73.1) % Lymph % (Auto) (18.3-44.2) % [place] % (Auto) (2.6-8.5) % Eos % (Auto) (0-4.4) % Baso % (Auto) (0.2-1.2) % Lymph # (Auto) (0.9-3.2) K/mm3 [place] # (Auto) (0.1-0.6) K/mm3 Eos # (Auto) (0-0.3) K/mm3 Baso # (Auto) (0.0-0.1) K/mm3 Abs Immat Gran (auto) (0.00-0.031) K/mm3 Absolute Neuts (auto) (1.3-6.7) K/mm3 Absolute Nucleated RBC (0.0-0.012) K/mm3 Nucleated RBC % (0.0-0.2) % Sodium (137-145) mmol/L Potassium (3.4-5.0) mmol/L Chloride (98-107) mmol/L Carbon Dioxide (22-30) mmol/L Anion Gap (4-12) mmol/L BUN (9-20) mg/dL Creatinine (0.7-1.3) mg/dL Estim Creat Clear Calc Estimated GFR (59 - ) Glucose (65-110) mg/dL Lactic Acid 4.4 H* 2.1 H (0.7-2.0) mmol/L Calcium (8.4-10.2) mg/dL Magnesium (1.6-2.3) mg/dL Total Bilirubin (0.2-1.3) mg/dL AST (17-59) U/L ALT (6-50) U/L Alkaline Phosphatase (38-126) U/L Total Protein (6.3-8.2) g/dL Albumin (3.5-5.1) g/dL Procalcitonin 0.1 ng/mL Urine Color Yellow (Yellow) Urine Appearance Clear (Clear) Urine pH 8.5 (5.0-9.0) Ur Specific [place] 1.006 (1.001-1.035) Urine Protein Negative (Negative) mg/dL Urine Glucose (UA) Negative (Negative) mg/dL Urine Ketones Negative (Negative) mg/dL Ur Blood (Man) Negative (Negative) Urine Nitrate Negative (Negative) Urine Bilirubin Negative (Negative) Urine Urobilinogen 0.2 (<2.0) mg/dL Add Ur Microanalysis Reviewed Leukocyte Esterase Rfl Trace H (Negative) JAGDISH/UL Urine RBC 0-2 (0-2) /hpf Urine WBC 0-5 (0-3) /hpf Ur Squamous Epith Cells None seen (Few) /hpf Urine Bacteria None seen /hpf Urine Casts 0-2 Sperm Presence Present Influenza A (RT-PCR) (Negative) Influenza B (RT-PCR) (Negative) RSV (RT-PCR) (Negative) SARS-CoV-2 RNA (RT-PCR) (Negative) Discharge Plan Discharge Clinical Impression: General weakness Patient Disposition: Home Condition: Stable Instructions: Antibiotic Form, Weakness (ED) Additional Instructions: your laboratory test were very reassuring today please follow-up with your primary care provider if your symptoms worsen please return to the emergency department immediately Patient Language: Bengali Prescriptions: No Action cyanocobalamin (vitamin B-12) 5,000 mcg capsule 2,500 mcg PO DAILY cholecalciferol (vitamin D3) 125 mcg (5,000 unit) tablet 5,000 unit PO DAILY Patient Comments: nystatin 100,000 unit/gram ointment 1 applic topical BID Qty: 30 3RF Rx Instructions: apply to rash twice daily until clear for yeast donepezil [Aricept] 5 mg tablet 5 mg PO QHS Qty: 30 11RF cephalexin 500 mg tablet 500 mg PO DAILY Patient Comments: per urologist omega 5-yxl-zdw-fish oil [Fish Oil] 1,000 mg (120 mg-180 mg) Capsule 1 cap PO DAILY tamsulosin 0.4 mg capsule 0.4 mg PO DAILY zinc 50 mg Tablet 50 mg PO DAILY aspirin 81 mg Capsule 81 mg PO DAILY acetaminophen 500 mg capsule 500 mg PO Q6H PRN (Reason: pain) Qty: 30 0RF enalapril maleate 20 mg tablet 20 mg PO DAILY Qty: 90 3RF fluticasone propionate 50 mcg/actuation spray,suspension 1 spray NASAL BID Qty: 16 11RF Rx Instructions: administer into each nostril pantoprazole 40 mg tablet,delayed release (DR/EC) 40 mg PO DAILY Qty: 90 3RF escitalopram oxalate [Lexapro] 10 mg tablet 10 mg PO DAILY Qty: 30 11RF Follow-up/Referrals: Jeffery Robles MD [Primary Care Provider] - Time of Disposition: 17:46
[2024-10-17 16:53] LABS: Lactic Acid 2.1 mmol/L (0.7-2.0)
== END 2024-10-17 18:28 | disposition home or self-care (01) ==
PROVIDERS: Emergency Provider Emergency Medicine; PCP Family Medicine
DX: R53.1 Weakness (principal); Z20.822 Contact with and (suspected) exposure to COVID-19; I70.0 Atherosclerosis of aorta; I10 Essential (primary) hypertension; G47.33 Obstructive sleep apnea (adult) (pediatric); Z86.16 Personal history of COVID-19; Z87.01 Personal history of pneumonia (recurrent); Z87.440 Personal history of urinary (tract) infections; Z87.442 Personal history of urinary calculi; Z79.899 Other long term (current) drug therapy; Z79.82 Long term (current) use of aspirin; I44.0 Atrioventricular block, first degree; K44.9 Diaphragmatic hernia without obstruction or gangrene; N13.30 Unspecified hydronephrosis; N32.89 Other specified disorders of bladder; N40.0 Benign prostatic hyperplasia without lower urinary tract symptoms; K40.20 Bilateral inguinal hernia, without obstruction or gangrene, not specified as recurrent; K57.90 Diverticulosis of intestine, part unspecified, without perforation or abscess without bleeding
CPT/HCPCS: 36415; 71045; 71260; 74177; 80053; 81001; 83605; 83735; 84145; 85025; 87637; 93005; 96361; 96365; 99284; J3475; J7030; Q9967

== ENCOUNTER 2024-11-21 17:48 | Emergency (ER) | payer OTHER, SELFPAY ==
--- NOTE | ~2024-11-21 | XR_ITS ---
XR finger 5th LT min 2V Ordering provider: Pierre Hussein APRN History: . volar proximal finger laceration . Comparison: None. FINDINGS: BONES: No acute fracture or dislocation. JOINT SPACES: Normal. Narrowing of the proximal and distal interphalangeal joints. SOFT TISSUES: Normal. IMPRESSION: No acute osseous abnormality. Reviewed, dictated and finalized at location A.
--- NOTE | 2024-11-21 17:49 | ED.WOUNDLAC ---
HPI - Wound/Laceration General Chief Complaint: Wound/Laceration Stated Complaint: LT Arm / Finger Cut Time Seen by Provider: 11/21/24 17:49 Source: patient Mode of arrival: ambulatory Limitations: no limitations History of Present Illness HPI narrative: Hermes is a 84 year old male patient presenting to the clinic today with c/o cut to the left volar forearm and left 5th volar finger. He reports he began to fall and grabbed an iron fence and it cut his finger. Also has a skin avulsion/abrasion to the left proximal posterior forearm and to left dorsal distal index finger. Bleeding is controlled. Tetanus UTD-2023. He denies hitting his head or losing consciousness. Related Data Home Medications ?Medication ?Instructions ?Recorded ?Confirmed ?Last Taken ?Type omega 9-quc-mlp-fish oil 1,000 mg 1 cap PO DAILY 12/30/19 10/25/24 Unknown History (120 mg-180 mg) capsule (Fish Oil) aspirin 81 mg capsule 81 mg PO DAILY 05/17/21 10/25/24 Unknown History tamsulosin 0.4 mg capsule 0.4 mg PO DAILY 05/17/21 10/25/24 Unknown History zinc 50 mg tablet 50 mg PO DAILY 05/17/21 10/25/24 Unknown History cyanocobalamin (vitamin B-12) 2,500 mcg PO DAILY 08/24/21 10/25/24 Unknown History 5,000 mcg capsule cholecalciferol (vitamin D3) 125 5,000 unit PO DAILY 11/15/22 10/25/24 Unknown History mcg (5,000 unit) tablet cephalexin 500 mg capsule mg 11/21/24 Unknown History escitalopram oxalate 10 mg tablet mg 11/21/24 Unknown History Allergies Allergy/AdvReac Type Severity Reaction Status Date / Time morphine AdvReac Severe Hypotension Verified 11/21/24 17:56 Review of Systems Review of Systems: Pertinent positives per HPI. Patient denies any fever, chills, rash, headache, visual changes, dizziness, cough, runny nose, sore throat, shortness of breath, chest pain, palpitations, nausea, vomiting, diarrhea, constipation, abdominal pain, or any urinary issues. [facility] Past Medical History Medical History Leg weakness, bilateral BMI 28.0-28.9,adult Functional memory problem Balanitis Seasonal allergic rhinitis At moderate risk for fall Overweight (BMI 25.0-29.9) BMI 29.0-29.9,adult Dermatitis (~09/2022) upper extremity Dyspnea on exertion Echocardiogram on 12/05/2022 revealed ejection fraction of 60-65% with grade 1 diastolic dysfunction. Anemia hemoglobin 12.6 on 03/31/2022. Hemoglobin 13.4, iron 75 with 23% saturation and ferritin 192 with vitamin B12 2000 and folic acid 20 on 11/16/2022. Hemoglobin 13.8 with vitamin B12 1117 on 12/06/2023. Near syncope (~10/2022) Carotid Doppler study on 11/18/2022 was normal. Serum potassium elevated Potassium elevated at 5.6, repeated at 4.7 on 10/28/2022. Potassium 5.4 on 12/08/2023. Potassium normal at 4.4 on 07/04/2024. ALFREDA (obstructive sleep apnea) failure on CPAP. Elevation of head of bed. Skin lesions, generalized COVID-19 On custodial drug therapy Urinary tract infection due to Klebsiella species Bacteremia due to Klebsiella pneumoniae Septicemia Hypoxia Overnight oxygen saturation study 06/29/2016 with nocturnal hypoxemia with baseline of 89.8% and desaturation to 57%. 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 Nephrolithiasis Diverticulitis Pneumonia Hypertension Surgical History Surgical History History of prostate surgery SP TURP for BPH Previous back surgery Family History Family History Sibling Hypertension Malignant neoplasm of prostate Patient's brother is Mother Family history of malignant neoplasm of breast in first degree relative Family history of malignant neoplasm of urinary bladder Patient's mother is Father Patient's father is Social History Social History Smoking status: Never smoker Second hand tobacco smoke exposure: No Alcohol intake: never Substance use: never Substance use type: does not use Lack of Transportation: No Lack of Food: Never True Current Housing: I Have Housing Concerned About Future Housing: No Difficulty Paying Gas/Electric Bills: No Difficulty Paying for Meds: No Currently Unemployed: No Education: High School Diploma/GED Difficulty w/ Childcare or Family Care: No Living arrangements: with family Gender identity (if verbalized by the patient): Male Spiritual care concerns: No Comments At the time of my signature, I reviewed and agree with the nursing past medical, surgical, social, and family history. There is no relevant family history pertinent to the patient complaint. Exam Narrative: General: Well-developed, well nourished, in no apparent distress Head: Normocephalic, atraumatic. Cardio: Regular rate and rhythm, s1 and s2 normal, no murmur appreciated. Resp: Clear to auscultation bilaterally, no rhonchi, rales, wheezing or rubs. Integumentary: [place], warm, and dry, small skin avulsion measuring 0.25 cm to the dorsal distal left index finger just below the fingernail, skin avulsion to left proximal posterior forearm measuring 2 cm, laceration to the proximal volar left 5th finger just below the PIP joint measuring 1.5 cm Course Course Emergency Course: Portions of this record may have been created with voice recognition software. Level of Care: Express Care Visit Vital Signs Vital signs: Vital Signs Temperature 36.2 C L 11/21/24 17:59 Pulse Rate 79 11/21/24 17:59 Respiratory Rate 18 11/21/24 17:59 Blood Pressure 112/60 11/21/24 17:59 Pulse Oximetry 94 11/21/24 17:59 Temperature 36.2 C L 11/21/24 17:59 Pulse Rate 79 11/21/24 17:59 Respiratory Rate 18 11/21/24 17:59 Blood Pressure 112/60 11/21/24 17:59 Pulse Oximetry 94 11/21/24 17:59 Vital signs reviewed Procedures Laceration Laceration 1: Date: 11/21/24 Site: hand (left 5th finger) Side (If applicable): left Size (cm): 1.5 Description: linear and contaminated Depth: simple, single layer Local Anesthetic: lidocaine 1% Amount of anesthesia used (mL): 2 Pre-repair: wound explored, irrigated and irrigated extensively ====== Skin Level ====== Skin layer closed with: nylon Size (cm): 5-0 Number of sutures: 5 Technique: simple, interrupted ====== Subcutaneous Layer ====== ====== Muscle Layer ====== ====== Tendon Layer ====== Dressing: Verbal consent obtained for laceration repair. Risk and benefits explained and patient voiced understanding. Area was cleansed with antiseptic wound wash and irrigated with sterile normal saline and a 27 gauge needle was then used to instill (2) ml of 1% lidocaine without epi into the wound edges. Area was prepped and draped using sterile technique. A 5-0 suture on a p needle was used to place (5) interrupted sutures bringing the wound edges together- well approximated. Patient tolerated procedure well. Sterile dressing applied. Metal finger splint applied. MDM - Wound/Laceration MDM Narrative Medical decision making narrative: At the time of visit patient is resting comfortably on the exam table. Patient appears to be nontoxic. Procedures: Laceration repair was performed in the clinic today. Irrigated the wound extensively using sterile normal saline and wound wash. Five interrupted sutures were placed into the wound bringing the wound edges well approximate. Bleeding controlled, metal finger splint applied. Plan: Patient has a finger laceration as well as two skin avulsion/abrasions. Laceration repair was performed in the clinic. Supportive measures were discussed with the patient and they voiced understanding discharge instructions and agrees to treatment plan. Return precautions reviewed Differential Diagnosis Differential diagnosis: Likely laceration, abscess, abrasion and avulsion of skin Discharge Plan Discharge Clinical Impression: Avulsion of skin Finger laceration Qualifiers: Encounter type: initial encounter Finger: little finger Damage to nail status: without damage Foreign body presence: without foreign body Laterality: left Qualified Code(s): S61.217A - Laceration without foreign body of left little finger without damage to nail, initial encounter Patient Disposition: Home Condition: Stable Instructions: Antibiotic Form, Finger Laceration (ED), Skin Avulsion (ED) Additional Instructions: X-ray shows no sign of foreign body or fracture Leave bandage on for 24 hours then may remove and apply band aide covering as needed. Keep wound clean and dry Keep finger splint in place to allow for appropriate healing-may remove to wash wound and apply new bandage Skin sutures out in 10 days. Watch for signs and symptoms of infection- redness, streaking, swelling, purulent discharge, or increase in pain. Follow up with your PCP for suture removal or return to the Express care. Follow up with your PCP for a wound check in 2-3 days. Patient Language: [place] Island[place] Prescriptions: No Action cephalexin 500 mg capsule escitalopram oxalate 10 mg tablet cyanocobalamin (vitamin B-12) 5,000 mcg capsule 2,500 mcg PO DAILY cholecalciferol (vitamin D3) 125 mcg (5,000 unit) tablet 5,000 unit PO DAILY Patient Comments: donepezil [Aricept] 5 mg tablet 5 mg PO QHS Qty: 30 11RF escitalopram oxalate [Lexapro] 20 mg tablet 20 mg PO DAILY Qty: 30 11RF alprazolam [Xanax] 0.25 mg tablet 0.125 - 0.25 mg PO TID PRN (Reason: anxiety) Qty: 15 0RF omega 2-wwo-jmp-fish oil [Fish Oil] 1,000 mg (120 mg-180 mg) Capsule 1 cap PO DAILY tamsulosin 0.4 mg capsule 0.4 mg PO DAILY zinc 50 mg Tablet 50 mg PO DAILY aspirin 81 mg Capsule 81 mg PO DAILY acetaminophen 500 mg capsule 500 mg PO Q6H PRN (Reason: pain) Qty: 30 0RF enalapril maleate 20 mg tablet 20 mg PO DAILY Qty: 90 3RF fluticasone propionate 50 mcg/actuation spray,suspension 1 spray NASAL BID Qty: 16 11RF Rx Instructions: administer into each nostril pantoprazole 40 mg tablet,delayed release (DR/EC) 40 mg PO DAILY Qty: 90 3RF Follow-up/Referrals: Jeffery Robles MD [Primary Care Provider] - Time of Disposition: 18:43 Quality NIHSS Nursing Documentation ED NIHSS nursing documentation: reviewed/agree
[2024-11-21 17:59] VITALS: BP 112/60; PULSE 79; RESP 18; TEMP 36.2; O2SAT 94
[2024-11-21] MEDS: LIDOCAINE 1% LOCAL INJ 2 ML AMPUL INFILTRATE (18:14)
== END 2024-11-21 18:52 | disposition home or self-care (01) ==
PROVIDERS: Emergency Provider Nurse Practitioner Family; PCP Family Medicine
DX: S51.802A Unspecified open wound of left forearm, initial encounter (principal); S61.201A Unspecified open wound of left index finger without damage to nail, initial encounter; S61.217A Laceration without foreign body of left little finger without damage to nail, initial encounter; W19.XXXA Unspecified fall, initial encounter; G47.33 Obstructive sleep apnea (adult) (pediatric); I70.0 Atherosclerosis of aorta; N40.1 Benign prostatic hyperplasia with lower urinary tract symptoms; I10 Essential (primary) hypertension; Z79.82 Long term (current) use of aspirin
CPT/HCPCS: 12001; 73140; 99213; G0463; J2003

== ENCOUNTER 2024-12-01 14:22 | Emergency (ER) | payer OTHER, SELFPAY ==
--- NOTE | 2024-12-01 14:33 | ED.WOUNDLAC ---
HPI - Wound/Laceration General Chief Complaint: Skin/Abscess/Foreign Body Stated Complaint: remove stiches Time Seen by Provider: 12/01/24 14:33 Source: patient and RN notes reviewed Mode of arrival: ambulatory Limitations: no limitations History of Present Illness HPI narrative: 84-year-old male presents with concern for suture removal. Reports laceration on the palmar aspect of the 5th digit. Reports that is healed, denies redness, warmth, drainage, swelling. Related Data Home Medications ?Medication ?Instructions ?Recorded ?Confirmed ?Last Taken ?Type omega 6-jge-dtv-fish oil 1,000 mg 1 cap PO DAILY 12/30/19 10/25/24 Unknown History (120 mg-180 mg) capsule (Fish Oil) aspirin 81 mg capsule 81 mg PO DAILY 05/17/21 10/25/24 Unknown History tamsulosin 0.4 mg capsule 0.4 mg PO DAILY 05/17/21 10/25/24 Unknown History zinc 50 mg tablet 50 mg PO DAILY 05/17/21 10/25/24 Unknown History cyanocobalamin (vitamin B-12) 2,500 mcg PO DAILY 08/24/21 10/25/24 Unknown History 5,000 mcg capsule cholecalciferol (vitamin D3) 125 5,000 unit PO DAILY 11/15/22 10/25/24 Unknown History mcg (5,000 unit) tablet cephalexin 500 mg capsule mg 11/21/24 Unknown History escitalopram oxalate 10 mg tablet mg 11/21/24 Unknown History Allergies Allergy/AdvReac Type Severity Reaction Status Date / Time morphine AdvReac Severe Hypotension Verified 12/01/24 14:23 Review of Systems Review of Systems: CONSTITUTIONAL: Denies malaise, chills, sweats, or fever. SKIN: Reports healing laceration to the 5th digit of the left hand MUSCULOSKELETAL: Denies muscle skeletal pain NEUROLOGIC: Denies numbness, weakness All systems reviewed & are unremarkable except as noted in HPI and below PMFSH Past Medical History Medical History Leg weakness, bilateral BMI 28.0-28.9,adult Functional memory problem Balanitis Seasonal allergic rhinitis At moderate risk for fall Overweight (BMI 25.0-29.9) BMI 29.0-29.9,adult Dermatitis (~09/2022) upper extremity Dyspnea on exertion Echocardiogram on 12/05/2022 revealed ejection fraction of 60-65% with grade 1 diastolic dysfunction. Anemia hemoglobin 12.6 on 03/31/2022. Hemoglobin 13.4, iron 75 with 23% saturation and ferritin 192 with vitamin B12 2000 and folic acid 20 on 11/16/2022. Hemoglobin 13.8 with vitamin B12 1117 on 12/06/2023. Near syncope (~10/2022) Carotid Doppler study on 11/18/2022 was normal. Serum potassium elevated Potassium elevated at 5.6, repeated at 4.7 on 10/28/2022. Potassium 5.4 on 12/08/2023. Potassium normal at 4.4 on 07/04/2024. ALFREDA (obstructive sleep apnea) failure on CPAP. Elevation of head of bed. 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 Nephrolithiasis Diverticulitis Pneumonia Hypertension Surgical History Surgical History History of prostate surgery SP TURP for BPH Previous back surgery Family History Family History Sibling Hypertension Malignant neoplasm of prostate Patient's brother is Mother Family history of malignant neoplasm of breast in first degree relative Family history of malignant neoplasm of urinary bladder Patient's mother is Father Patient's father is Social History Social History Smoking status: Never smoker Second hand tobacco smoke exposure: No Alcohol intake: never Substance use: never Substance use type: does not use Lack of Transportation: No Lack of Food: Never True Current Housing: I Have Housing Concerned About Future Housing: No Difficulty Paying Gas/Electric Bills: No Difficulty Paying for Meds: No Currently Unemployed: No Education: High School Diploma/GED Difficulty w/ Childcare or Family Care: No Living arrangements: with family Gender identity (if verbalized by the patient): Male Spiritual care concerns: No Comments At time of signature, agree with nursing past medical, surgical, social and family history. There is no relevant family history pertinent to the presenting complaint Exam Narrative: GENERAL: Well-appearing, well-nourished, and in no acute distress. HEAD: Normocephalic EYES: PERRLA, conjunctivae clear NECK: Supple. CHEST: Speaks in full sentences. No respiratory distress. HEART: Regular rate and rhythm. Normal and equal peripheral pulses. EXTREMITIES: Right/Left hand and digits of hand have normal strength and sensation. 5/5 strength with digit flexion, extension. Range of motion normal. No clubbing, cyanosis, or edema noted. No tenderness. Skin intact. Normal digital cascade with flexion of fingers, median, ulnar and radial nerve intact. Normal sensation of each side of finger. Can perform 'okay' sign, 'cross over finger test of index and middle fingers' and 'thumbs up' sign. No scissoring. Normal thumb opposition. Good capillary refill and radial pulse. Distal capillary refill less than 3 seconds. Patient is right/left hand dominant SKIN: Warn, dry, intact, pink. No rash NEURO: Alert and oriented x3. PSYCH: Normal mood and affect Course Course Emergency Course: Patient is aware of diagnosis, understands and agrees to treatment plan. Anticipatory guidance given. Patient agrees to follow-up as directed and is aware of reasons to seek care at the emergency department. Portions of this record may have been created with voice recognition software Level of Care: Express Care Visit Vital Signs Vital signs: Reviewed. MDM - Wound/Laceration MDM Narrative Medical decision making narrative: Verbal consent was obtained. Wound well approximated, no erythema, induration, or discharge noted. Five simple interrupted sutures completely removed in a sterile fashion. Patient tolerated procedure well, no complications. Patient advised to look for and return for any signs of infection such as redness, swelling, discharge, or worsening pain. Differential Diagnosis Differential diagnosis: Likely laceration, abrasion and avulsion of skin Critical Care Time Critical Care Time Critical Care Time: No Discharge Plan Discharge Clinical Impression: Visit for suture removal Patient Disposition: Home Condition: Stable Instructions: Stitches Removal (ED) Additional Instructions: AFTER the stitches are removed: Clean your wound as directed. Carefully wash your wound with soap and water. Pat the area dry with a clean towel. Protect your wound. Your wound can swell, bleed, or split open if it is stretched or bumped. You may need to wear a bandage that supports your wound until it is completely healed. How to minimize a scar: After sutures are removed, keep your scar out of the sun. Use sunblock if your wound is exposed to the sun. You may use OTC silicone pad and/or scar massage with ointment (for 10-15 min a day) after one month. Talk to your doctor if you think you are developing a keloid. Patient Language: [place] Prescriptions: No Action cephalexin 500 mg capsule escitalopram oxalate 10 mg tablet cyanocobalamin (vitamin B-12) 5,000 mcg capsule 2,500 mcg PO DAILY cholecalciferol (vitamin D3) 125 mcg (5,000 unit) tablet 5,000 unit PO DAILY Patient Comments: donepezil [Aricept] 5 mg tablet 5 mg PO QHS Qty: 30 11RF escitalopram oxalate [Lexapro] 20 mg tablet 20 mg PO DAILY Qty: 30 11RF alprazolam [Xanax] 0.25 mg tablet 0.125 - 0.25 mg PO TID PRN (Reason: anxiety) Qty: 15 0RF omega 5-wac-pxc-fish oil [Fish Oil] 1,000 mg (120 mg-180 mg) Capsule 1 cap PO DAILY tamsulosin 0.4 mg capsule 0.4 mg PO DAILY zinc 50 mg Tablet 50 mg PO DAILY aspirin 81 mg Capsule 81 mg PO DAILY acetaminophen 500 mg capsule 500 mg PO Q6H PRN (Reason: pain) Qty: 30 0RF enalapril maleate 20 mg tablet 20 mg PO DAILY Qty: 90 3RF fluticasone propionate 50 mcg/actuation spray,suspension 1 spray NASAL BID Qty: 16 11RF Rx Instructions: administer into each nostril pantoprazole 40 mg tablet,delayed release (DR/EC) 40 mg PO DAILY Qty: 90 3RF Follow-up/Referrals: Jeffery Robles MD [Primary Care Provider] - Time of Disposition: 14:42
[2024-12-01 14:35] VITALS: BP 93/49; PULSE 58; RESP 18; TEMP 35.9; O2SAT 98
== END 2024-12-01 14:43 | disposition home or self-care (01) ==
PROVIDERS: Emergency Provider Nurse Practitioner; PCP Family Medicine
DX: Z48.02 Encounter for removal of sutures (principal); I10 Essential (primary) hypertension; I70.0 Atherosclerosis of aorta; N40.1 Benign prostatic hyperplasia with lower urinary tract symptoms; G47.33 Obstructive sleep apnea (adult) (pediatric); Z86.16 Personal history of COVID-19; Z79.82 Long term (current) use of aspirin
CPT/HCPCS: 99211; G0463

== ENCOUNTER 2025-02-01 17:16 | Emergency (ER) | payer OTHER, SELFPAY ==
--- NOTE | ~2025-02-01 | CT_ITS ---
EXAMINATION: CT cervical spine wo con COMPARISON: None HISTORY: fall TECHNIQUE: Axial images were obtained through the spine without IV contrast. Coronal, sagittal reconstruction images were obtained from the axial views. CT scan performed using dose optimization techniques including the following automated exposure control; adjustment of mA and/or kV; use of iterative reconstruction technique. Automatic exposure control was used to reduce radiation dose. Permanent radiation dose record is archived to PACS. FINDINGS: Grade 1 anterolisthesis of C4 on C5, no fracture is identified. Moderate loss of disc height C3-4, C5-6 and C6-7 with moderate canal and foraminal stenosis, outpatient MRI is recommended Soft tissues unremarkable. Impression: No acute abnormality. Reviewed, dictated and finalized at location A. Impression: No acute abnormality.
--- NOTE | ~2025-02-01 | CT_ITS ---
CHEST ABDOMEN PELVIS WITH CONTRAST CLINICAL HISTORY: R lateral rib pain, RUQ pain, R hip pain . COMPARISON: CTA chest abdomen pelvis 10/17/2024 TECHNIQUE: Helical CT performed from thoracic inlet to symphysis pubis 100 mL Omnipaque 350 Coronal, sagittal reformats. Multi planar MIPS CT images acquired with automatic exposure control for dose reduction DLP: 1176 mGy-cm FINDINGS: CHEST- Lungs/Pleura: Clear. Small calcification right lateral CP angle. Thoracic Aorta: No dissection. No aneurysm. Mild atherosclerotic disease. Pulmonary arteries: Normal caliber. Heart: Coronary artery calcifications. Tracheobronchial tree: Patent. Nodes: No enlarged nodes. Bones: No acute bony abnormality. Soft tissues: Unremarkable. ABDOMEN/PELVIS- Liver: Steatosis. Gallbladder: Unremarkable. Spleen: Unremarkable. Pancreas: Unremarkable. Adrenal glands: Unremarkable. Kidneys: Right kidney- No hydronephrosis. No renal stones. [place] perirenal fluid collection possibly exophytic cyst. Left kidney- No hydronephrosis. No renal stones. Distal esophagus/stomach: Small hiatal hernia. Small bowel loops: Normal caliber and wall thickness. Colon: Diverticula. Normal caliber and wall thickness. Normal RLQ appendix. Nodes: No enlarged nodes. Peritoneum: No ascites. No free air. Urinary bladder: Mural nodule. Small diverticulum. Prostate: Unremarkable. Bones: No acute bony abnormality. Mild hip degenerative changes. Soft tissues: Small umbilical hernia with fat. Aorta: No aneurysm or dissection. Atherosclerotic disease. IVC: Unremarkable. Main portal vein/SMV/splenic vein: Patent. IMPRESSION: CHEST- 1. No acute findings. ABDOMEN/PELVIS- 1. Urinary bladder mural nodule worrisome for malignancy. Recommend urology consultation. 2. Nonurgent findings as above. Reviewed, dictated and finalized at location R. IMPRESSION: CHEST- 1. No acute findings. ABDOMEN/PELVIS- 1. Urinary bladder mural nodule worrisome for malignancy. Recommend urology co nsultation. 2. Nonurgent findings as above.
--- NOTE | ~2025-02-01 | CT_ITS ---
EXAMINATION: CT brain wo naya, 02/01/2025 19:30 CDT HISTORY: fall COMPARISON: Comparison 03/13/2024 Technique: Axial images obtained of the brain without contrast. One or more of the following dose reduction techniques were used: automated exposure control, adjustment of the mA and/or kV according to patient size, use of iterative reconstruction technique. Findings: Mild hydrocephalus with asymmetric prominence of the ventricles compared to the sulci. There is no acute infarct or hemorrhage. No midline shift or mass effect. No extra-axial fluid collections. Mastoid air cells unremarkable. Sinuses and orbits unremarkable. No acute fracture. No significant facial or scalp soft tissue swelling evident. No radiopaque foreign body is seen. Impression: 1. No acute infarct or hemorrhage. Correlate for symptoms of underlying normal pressure hydrocephalus. Reviewed, dictated and finalized at location A. Impression: 1. No acute infarct or hemorrhage. Correlate for symptoms of underlying normal pressure hydrocephalus.
--- NOTE | ~2025-02-01 | XR_ITS ---
EXAMINATION: XR elbow RT min 3V, 02/01/2025 18:00 CDT HISTORY: fall COMPARISON: No comparisons available. Findings: No acute fracture or malalignment. No significant degenerative changes. Soft tissues unremarkable. Impression: No acute fracture or malalignment. Reviewed, dictated and finalized at location A. Impression: No acute fracture or malalignment.
[2025-02-01 17:18] VITALS: BP 146/66; PULSE 76; RESP 16; TEMP 36.6; O2SAT 98
--- NOTE | 2025-02-01 19:01 | ED.FALL ---
HPI - Fall General Chief Complaint: Fall Stated Complaint: fall Time Seen by Provider: 02/01/25 18:01 Source: patient Mode of arrival: ambulatory Limitations: no limitations History of Present Illness HPI Narrative: Patient is an 84 y/o male who presents to the ED with c/o a fall. Patient reports he was outside using his garden hose when he tripped and fell over the hose, landing on the street. Landed onto his right side. He did hit his head but denied LOC. He complains of pain to his right elbow, right-sided ribs, right abdomen, right hip. He was able to get up off the ground on his own and ambulate but has had persistent pain. Reports mild increased pain with deep breathing but denies feeling significantly short of breath. Denies dizziness, lightheadedness, neck or back pain. Related Data Home Medications ?Medication ?Instructions ?Recorded ?Confirmed ?Last Taken ?Type omega 1-kgz-vuc-fish oil 1,000 mg 1 cap PO DAILY 12/30/19 10/25/24 Unknown History (120 mg-180 mg) capsule (Fish Oil) aspirin 81 mg capsule 81 mg PO DAILY 05/17/21 10/25/24 Unknown History tamsulosin 0.4 mg capsule 0.4 mg PO DAILY 05/17/21 10/25/24 Unknown History zinc 50 mg tablet 50 mg PO DAILY 05/17/21 10/25/24 Unknown History cyanocobalamin (vitamin B-12) 2,500 mcg PO DAILY 08/24/21 10/25/24 Unknown History 5,000 mcg capsule cholecalciferol (vitamin D3) 125 5,000 unit PO DAILY 11/15/22 10/25/24 Unknown History mcg (5,000 unit) tablet cephalexin 500 mg capsule mg 11/21/24 Unknown History escitalopram oxalate 10 mg tablet mg 11/21/24 Unknown History Allergies Allergy/AdvReac Type Severity Reaction Status Date / Time morphine AdvReac Severe Hypotension Verified 02/01/25 17:21 Review of Systems Review of Systems: All systems reviewed & are unremarkable except as noted in HPI. All systems reviewed & are unremarkable except as noted in HPI and below PMFSH Past Medical History Medical History Leg weakness, bilateral BMI 28.0-28.9,adult Functional memory problem Balanitis Seasonal allergic rhinitis At moderate risk for fall Overweight (BMI 25.0-29.9) BMI 29.0-29.9,adult Dermatitis (~09/2022) upper extremity Dyspnea on exertion Echocardiogram on 12/05/2022 revealed ejection fraction of 60-65% with grade 1 diastolic dysfunction. Anemia hemoglobin 12.6 on 03/31/2022. Hemoglobin 13.4, iron 75 with 23% saturation and ferritin 192 with vitamin B12 2000 and folic acid 20 on 11/16/2022. Hemoglobin 13.8 with vitamin B12 1117 on 12/06/2023. Near syncope (~10/2022) Carotid Doppler study on 11/18/2022 was normal. Serum potassium elevated Potassium elevated at 5.6, repeated at 4.7 on 10/28/2022. Potassium 5.4 on 12/08/2023. Potassium normal at 4.4 on 07/04/2024. ALFREDA (obstructive sleep apnea) failure on CPAP. Elevation of head of bed. Skin lesions, generalized COVID-19 On care home drug therapy Urinary tract infection due to Klebsiella species Bacteremia due to Klebsiella pneumoniae Septicemia Hypoxia Overnight oxygen saturation study 06/29/2016 with nocturnal hypoxemia with baseline of 89.8% and desaturation to 57%. 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 Nephrolithiasis Diverticulitis Pneumonia Hypertension Surgical History Surgical History History of prostate surgery SP TURP for BPH Previous back surgery Family History Family History Sibling Hypertension Malignant neoplasm of prostate Patient's brother is Mother Family history of malignant neoplasm of breast in first degree relative Family history of malignant neoplasm of urinary bladder Patient's mother is Father Patient's father is Social History Social History Smoking status: Never smoker Second hand tobacco smoke exposure: No Alcohol intake: never Substance use: never Substance use type: does not use Lack of Transportation: No Lack of Food: Never True Current Housing: I Have Housing Concerned About Future Housing: No Difficulty Paying Gas/Electric Bills: No Difficulty Paying for Meds: No Currently Unemployed: No Education: High School Diploma/GED Difficulty w/ Childcare or Family Care: No Living arrangements: with family Gender identity (if verbalized by the patient): Male Spiritual care concerns: No Exam Narrative: GENERAL: Elderly but well appearing, well-nourished, non-toxic, in no acute distress. HEAD: Normocephalic, atraumatic. NECK: No appreciable midline spinal tenderness RESPIRATORY: Airway patent, respirations nonlabored. Clear to auscultation bilaterally, no rales, rhonchi, wheezing. CARDIOVASCULAR: Regular rate and rhythm without murmurs, rubs, or gallops. ABDOMINAL: Soft, mild TTP throughout R upper /lateral abdomen, nondistended. Normoactive BS. MUSCULOSKELETAL: Moves all extremities. No gross deformities. TTP throughout R anterolateral chest wall, R rib anterior inferior posterior rib cage. No palpable bony deformities. TTP and hematoma formation throughout R lateral elbow/proximal forearm. Small abrasions present, no deeper wounds or lacerations. Mild diffuse TTP throughout R lateral hip joint. SKIN: Warm, dry, normal color. NEURO: A&O X3. Speech clear. No ataxic movements. PSYCHIATRIC: Appropriate mood and affect. Normal interaction. Course Vital Signs Vital signs: Vital Signs Temperature 97.9 F 02/01/25 17:18 Pulse Rate 76 02/01/25 17:18 Respiratory Rate 16 02/01/25 17:18 Blood Pressure 146/66 H 02/01/25 17:18 Pulse Oximetry 98 02/01/25 17:18 Oxygen Delivery Room Air 02/01/25 17:18 Temperature 97.9 F 02/01/25 17:18 Pulse Rate 76 02/01/25 17:18 Respiratory Rate 16 02/01/25 17:18 Blood Pressure 146/66 H 02/01/25 17:18 Pulse Oximetry 98 02/01/25 17:18 Oxygen Delivery Room Air 02/01/25 17:18 MDM - Fall MDM Narrative Medical decision making narrative: Patient presented to ED status post ground level mechanical fall, head injury, pain to right-sided ribs/abdomen, right elbow, right hip. Vital signs stable upon arrival. Patient in no acute distress. Neurologically intact. X-ray of right elbow negative for fracture CT brain negative CT cervical spine negative CT chest/abdomen/pelvis obtained without acute traumatic findings. No rib fracture. No internal injury. No hip fracture. Discussed lab and imaging findings, overall reassuring workup. Discussed diagnosis of rib contusion, instructed on incentive spirometer use. Given Denny bandage for right elbow. Tetanus is up-to-date. Will prescribe short course of pain medication, lidocaine patches for home use. Patient advised will likely be sore over the next few days. Recommended follow-up with PCP. Given return precautions. He is in agreement with plan. Feels comfortable going home. Feels improved after pain control in the ED. Discharged in stable condition. CT of the abdomen pelvis did show follow-up/nodule from bladder. Updated patient on this. He has an appointment with his urologist, Dr. Lopez on Monday. Advised to discuss this at appointment. Denies pain or hematuria at this time. Medical Records Attestation: I reviewed the patient's medical records. Imaging Data Attestation: I personally reviewed and interpreted this imaging study as follows: Radiologist's impression: STAT RAD CT brain: Comparison to 03/10. Moderate diffuse cerebral atrophy and periventricular white matter low-density consistent with chronic small-vessel disease and/or senescent changes, unchanged. No acute large vessel infarct or intracranial hemorrhage is seen. The ventricular system is mildly dilated. No mass or hemorrhage. The paranasal sinuses and mastoid air cells are normal. No skull fracture or scalp hematoma seen. No incidental findings. STAT RAD CT cervical spine: Comparison to 03/10 08/12. Moderate narrowing and osteophytosis of atlantodental joint. The odontoid process is intact. The spinal canal is widely patent. Mild to moderate multilevel degenerative disc disease and facet arthrosis throughout the cervical spine, similar to previous. No acute fracture or traumatic subluxation is seen. There is degenerative fusion of the C3-4 posterior elements. Degenerative fusion of the posterior elements at C5-6. Axial soft tissue images show no significant focal disc herniation or significant spinal stenosis. Mild calcification of the carotid bifurcation bilaterally. The neck soft tissues are otherwise unremarkable. No incidental findings. STAT RAD CT chest: Comparison to 10/08. Mild degenerative changes in the right shoulder. Mild to moderate multilevel degenerative changes throughout the spine. No acute fracture or subluxation is seen. No rib fractures identified. No pneumothorax or hemothorax. The aorta is mildly calcified but not dilated. There is no aneurysm or dissection. The heart is not enlarged. Mild coronary calcification is present. No pericardial effusion. 3.3 cm hiatal hernia. Calcified granuloma in the right middle lobe. No acute infiltrate or consolidation is seen in the lungs. STAT RAD CT abd/pelvis: Impression: Mild fatty infiltration of the liver. No focal liver lesion is seen. The liver is not enlarged. No solid organ injury or free fluid is seen in the abdomen or pelvis. Bowel loops are nondilated. The appendix is normal. There is extensive diverticulosis throughout the entire colon without evidence of acute diverticulitis. No acute inflammatory or traumatic findings are seen involving the bowel. There is a polypoid 1 cm mural nodule extending off the right side of the urinary bladder. Recommend urologic follow-up for possible bladder neoplasm. The abdominal aorta is mildly calcified but nondilated. There is no aneurysm or dissection. [id number]-nb-qbkrnzmi she generated changes throughout the spine. No acute fracture subluxation is seen. Hips and pelvis appear intact and normally aligned. No incidental findings. Discharge Plan Discharge Clinical Impression: Fall from ground level, Bladder polyp Closed head injury Qualifiers: Encounter type: initial encounter Qualified Code(s): S09.90XA - Unspecified injury of head, initial encounter Contusion of rib on right side Qualifiers: Encounter type: initial encounter Qualified Code(s): S29.8XXA - Other specified injuries of thorax, initial encounter Patient Disposition: Home Condition: Stable Instructions: Antibiotic Form, Head Injury (ED), Rib Contusion (ED) Additional Instructions: Your workup here was reassuring. There is no evidence of fractures. Utilize incentive spirometer to encourage deep breathing. Recommend Tylenol, ice, lidocaine patches to areas of pain. [place] as needed for more severe pain. Follow-up with your primary care doctor for further evaluation. Call office make appointment. Return to the ED if you experience worsening or severe pain, recurrent fall or injury, difficulty breathing or feeling short of breath, unable to keep down food or drink, severe dizziness or lightheadedness, or any other symptoms of concern. There was a polyp/nodule noted of your bladder. Follow-up with urology for this. Patient Language: Kyrgyz Prescriptions: New hydrocodone-acetaminophen 5-325 mg tablet 1 tablet PO Q6H PRN (Reason: pain) Qty: 6 0RF lidocaine 5 % adhesive patch,medicated 1 patch topical DAILY Qty: 15 0RF Rx Instructions: leave on most painful area for up to 12 hrs No Action cephalexin 500 mg capsule escitalopram oxalate 10 mg tablet cyanocobalamin (vitamin B-12) 5,000 mcg capsule 2,500 mcg PO DAILY cholecalciferol (vitamin D3) 125 mcg (5,000 unit) tablet 5,000 unit PO DAILY Patient Comments: donepezil [Aricept] 5 mg tablet 5 mg PO QHS Qty: 30 11RF escitalopram oxalate [Lexapro] 20 mg tablet 20 mg PO DAILY Qty: 30 11RF alprazolam [Xanax] 0.25 mg tablet 0.125 - 0.25 mg PO TID PRN (Reason: anxiety) Qty: 15 0RF omega 1-xgi-nnr-fish oil [Fish Oil] 1,000 mg (120 mg-180 mg) Capsule 1 cap PO DAILY tamsulosin 0.4 mg capsule 0.4 mg PO DAILY zinc 50 mg Tablet 50 mg PO DAILY aspirin 81 mg Capsule 81 mg PO DAILY acetaminophen 500 mg capsule 500 mg PO Q6H PRN (Reason: pain) Qty: 30 0RF fluticasone propionate 50 mcg/actuation spray,suspension 1 spray NASAL BID Qty: 16 11RF Rx Instructions: administer into each nostril enalapril maleate 20 mg tablet 20 mg PO DAILY Qty: 90 3RF pantoprazole 40 mg tablet,delayed release (DR/EC) 40 mg PO DAILY Qty: 90 3RF Follow-up/Referrals: Jeffery Robles MD [Primary Care Provider, Family Practice] Time of Disposition: 21:39
[2025-02-01] MEDS: HYDROcodone/acetaminophen (*CRX) 5-325 MG TABLET 1 TAB PO (19:16)
[2025-02-01 22:00] VITALS: BP 155/76; PULSE 87; RESP 18; O2SAT 96
== END 2025-02-01 22:21 | disposition home or self-care (01) ==
PROVIDERS: Emergency Provider Physician Assistant; PCP Family Medicine
DX: S09.90XA Unspecified injury of head, initial encounter (principal); S29.8XXA Other specified injuries of thorax, initial encounter; D41.4 Neoplasm of uncertain behavior of bladder; D64.9 Anemia, unspecified; Z87.440 Personal history of urinary (tract) infections; I10 Essential (primary) hypertension; W01.0XXA Fall on same level from slipping, tripping and stumbling without subsequent striking against object, initial encounter
CPT/HCPCS: 70450; 71260; 72125; 73080; 74177; 99284; A9270; Q9967

== ENCOUNTER 2025-03-06 00:32 | Day surgery (SDC) | payer OTHER, SELFPAY ==
[2025-02-26 15:36] VITALS: BMI 29.2
--- NOTE | 2025-02-26 15:59 | PC.NURSE ---
[facility] has started construction of its new state of the art ER which will open Spring 2026. With this, we anticipate parking may be a challenge for some our surgical patients and families. Parking spaces are limited but are available for all Surgical, obstetrics, and ER patients sharing this lot. If you arrive and find you are having a hard time finding a parking space, please note that we understand the challenges, please drive around the hospital and park near Hospital Entrance 1. When you enter this entrance, you can ask a volunteer to direct or take you back to the surgical waiting area to check in. We appreciate everyone?s understanding of these expected challenges while we build for your future. Report to the Outpatient Waiting Room, entrance under the green pavilion located off [address], at time ___11:45AM___ on date ___03/06/25__. Planned Procedure Time: __1:45PM____.? Time changes happen often and if your time is changed the preop area will call you the afternoon before. - You and your visitor will be asked to self-screen and do not enter if you have any COVID symptoms. Please call surgeon if you need to reschedule. - A mask is optional within the hospital at this time. Patients may have clear liquids (water, carbonated beverages, clear teas, apple juice) until 3 hours prior to surgery (10:45AM) with a maximum of 20 ounces. - No food from midnight until time of surgery and no smoking, or chewing tobacco (or any form of nicotine). No chewing gum, candy or mints. Take only the following medications with a SIP of water on the morning of surgery: ___CEPHALEXIN DO NOT STOP ANY OF YOUR OTHER PRESCRIPTION MEDICATIONS PRIOR TO SURGERY EXCEPT THE FOLLOWING Hold all vitamins and supplements for 3 days per anesthesiologist. Medications to discontinue per physician HOLD ASPIRIN & VITAMINS/SUPPLEMENTS 7 DAYS PRE-OP PER DR KUMAR Date to take last dose____02/26/25 Please no make-up, nail lao, hairspray, perfume, deodorant, or body powder the day of surgery.? No jewelry (including any body piercings) or valuables the day of surgery, leave them at home.? Please take a shower or bath the night before, or the morning of, surgery with an antibacterial soap.? Wear comfortable, loose fitting clothing.? Children are encouraged to wear pajamas. - Jewelry must be removed prior to entering the operating room.? Rings and piercings that are not removed may be cut off. - The hospital will not accept responsibility for valuables.? - Please leave all valuables, including medications, at home the day of surgery. If you are going home after surgery, a licensed industrial tractor driver must drive you home.? - NO public transportation without another adult if you receive anesthesia. - We recommend that an adult stay with you for 24 hours following discharge. - We also recommend that you do not drive, make important decision, drink alcoholic beverages, or take any drugs that were not prescribed by your health care provider for at least 24 hours after your discharge time. Follow any additional instructions given to you from your surgeon. Telephone instructions given to ____PATIENT & WIFE and asked if any additional questions and then verbalized understanding. Patient advised to call surgeon office or pre surgery nurse liaison [phone] if any additional questions.
[2025-03-06] VITALS (7 sets, daily range): BP systolic 119–146; BP diastolic 69–90; PULSE 60–66; RESP 10–20; TEMP 36.1–36.3; O2SAT 99–100
--- NOTE | 2025-03-06 06:25 | WPDHPUPDATE1 ---
History and Physical Update Update Date/Time: 03/06/25 06:25 History and Physical has been reviewed, including an updated exam of the patient. There are NO changes in the patient's condition. Risks, benefits, and alternatives have been discussed and questions answered. Patient agrees to proceed with procedure.
--- NOTE | 2025-03-06 11:45 | P.PNAN_ITS ---
Anes - Initial Pre Proc Eval Procedure: Operation Date: 03/06/25 13:30 Proposed Procedures p Cystoscopy, Removal Foreign Body from Bladder Dome, - Joel Lopez MD s Possible Trans Urethral Resection Bladder Tumor - Joel Lopez MD Date/Time: 03/06/25 11:45 Surgeon: Joel Lopez MD Pre Op Diagnosis: atonic bladder Patient Data Age: 84 Gender: M Height: 1.68 m Weight: 82 kg Allergies Allergy/AdvReac Type Severity Reaction Status Date / Time morphine AdvReac Severe Hypotension Verified 03/06/25 11:38 Home Medications ?Medication ?Instructions ?Recorded ?Confirmed ?Type aspirin 81 mg capsule 81 mg PO DAILY 05/17/2101/13 History tamsulosin 0.4 mg capsule 0.4 mg PO DAILY 05/17/21 History zinc 50 mg tablet 50 mg PO DAILY 05/17/2102/19 History cyanocobalamin (vitamin B-12) 2,500 mcg PO EVERY OTHER DAY 08/24/21 03/06/25 History 5,000 mcg capsule cholecalciferol (vitamin D3) 125 5,000 unit PO EVERY O THER DAY 11/15/22 03/06/25 History mcg (5,000 unit) tablet donepezil 5 mg tablet (Aricept) 5 mg PO QHS #30 tabs 0 07/25/24 03/06/25 Rx escitalopram oxalate 20 mg tablet 20 mg PO DAILY #30 t abs 10/25/24 03/06/25 Rx (Lexapro) cephalexin 500 mg capsule 500 mg PO DAILY 11/21/24 History enalapril maleate 20 mg tablet 20 mg PO DAILY #90 tabs 12/17/24 03/06/25 Rx pantoprazole 40 mg tablet,delayed 40 mg PO DAILY #90 t abs 12/17/24 03/06/25 Rx release hydrocodone 5 mg-acetaminophen 325 1 tablet PO Q6H PRN pain #6 tabs 02/01/25 02/26/25 Rx mg tablet acetaminophen 500 mg capsule 1,000 mg PO Q6H PRN pain 02/26/25 02/26/25 History fluticasone propionate 50 1 spray intranasal BID PRN n jenny 02/26/25 03/06/25 History mcg/actuation nasal congestion spray,suspension geriatric multivitamin-min 1 tablet PO DAILY 02/26/25 03/06/25 History Patient hx anesthesia problems: none Family hx anesthesia problems: none Results Review: All pre-operative results and documents have been reviewed as part of the pre- operative evaluation. [facility] Past Medical History Medical History (Updated 02/03/25 @ 07:30 by Jeffery Robles MD) Mass of urinary bladder 1 cm polypoid nodule right side of the urinary bladder on CT abdomen in the ER on 02/01/2025. Disc disease, degenerative, cervical CT cervical spine 02/01/2025 with degenerative disc disease with moderate spinal stenosis and neuroforaminal stenosis at C3-C4, C4-C5, and C5-C6. Leg weakness, bilateral BMI 28.0-28.9,adult Functional memory problem Balanitis Seasonal allergic rhinitis At moderate risk for fall Overweight (BMI 25.0-29.9) BMI 29.0-29.9,adult Dermatitis (~09/2022) upper extremity Dyspnea on exertion Echocardiogram on 12/05/2022 revealed ejection fraction of 60-65% with grade 1 diastolic dysfunction. Anemia hemoglobin 12.6 on 03/31/2022. Hemoglobin 13.4, iron 75 with 23% saturation and ferritin 192 with vitamin B12 2000 and folic acid 20 on 11/16/2022. Hemoglobin 13.8 with vitamin B12 1117 on 12/06/2023. Near syncope (~10/2022) Carotid Doppler study on 11/18/2022 was normal. Serum potassium elevated Potassium elevated at 5.6, repeated at 4.7 on 10/28/2022. Potassium 5.4 on 12/08/2023. Potassium normal at 4.4 on 07/04/2024. ALFREDA (obstructive sleep apnea) failure on CPAP. Elevation of head of bed. 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 Nephrolithiasis Diverticulitis Pneumonia Hypertension Surgical History Surgical History History of prostate surgery SP TURP for BPH Previous back surgery Family History Family History Sibling Hypertension Malignant neoplasm of prostate Patient's brother is Mother Family history of malignant neoplasm of breast in first degree relative Family history of malignant neoplasm of urinary bladder Patient's mother is Father Patient's father is Social History Social History Smoking status: Never smoker Second hand tobacco smoke exposure: No Alcohol intake: never Substance use: never Substance use type: does not use Lack of Transportation: No Lack of Food: Never True Current Housing: I Have Housing Concerned About Future Housing: No Difficulty Paying Gas/Electric Bills: No Difficulty Paying for Meds: No Currently Unemployed: No Education: High School Diploma/GED Difficulty w/ Childcare or Family Care: No Living arrangements: with family Additional living arrangements comments: Gender identity (if verbalized by the patient): Male Spiritual care concerns: No Anes - Eval Final PreProcedure Day of Procedure 03/06/25 11:45 Patient weight: overweight Heart: regular rate and rhythm Lungs: clear to auscultation Airway: Mallampati scale class III Neurological: alert and oriented Last oral intake: >/= 8 hours ASA classification: III Emergent: no Anesthetic plan: proceed Anesthesia type and monitoring: general LMA and standard monitoring Results Review: All pre-operative results and documents have been reviewed as part of the pre- operative evaluation. Informed Consent: The patient's anesthetic plan and its attendant risks and benefits were discussed with the patient/family/POA. Questions were solicited and answers provided to the satisfaction of the patient/family/POA.
[2025-03-06] MEDS: LACTATED RINGERS 1,000 ML 30 ML IV CONT (11:55)
--- NOTE | 2025-03-06 12:06 | PM.HPGS ---
History of Present Illness History of Present Illness Consent: Risks, benefits, and alternatives have been discussed and questions answered. Patient agrees to proceed with procedure. Chief complaint: atonic bladder Narrative: Hermes Killian is a 84 year old male patient had a recent fall and bruised his right side with a couple cracked ribs. ?CT scan showed a possible growth in his bladder. ?By cystoscopy this appears to be an unusual protrusion from what appears to be a diverticulum in the right dome of his bladder. ?I will set him up for cystoscopy with extraction foreign body, possible TURBT Review of Systems Review of Systems: All systems reviewed & are unremarkable except as noted in HPI and below PMFSH Past Medical History Medical History (Updated 02/03/25 @ 07:30 by Jeffery Robles MD) Mass of urinary bladder 1 cm polypoid nodule right side of the urinary bladder on CT abdomen in the ER on 02/01/2025. Disc disease, degenerative, cervical CT cervical spine 02/01/2025 with degenerative disc disease with moderate spinal stenosis and neuroforaminal stenosis at C3-C4, C4-C5, and C5-C6. Leg weakness, bilateral BMI 28.0-28.9,adult Functional memory problem Balanitis Seasonal allergic rhinitis At moderate risk for fall Overweight (BMI 25.0-29.9) BMI 29.0-29.9,adult Dermatitis (~09/2022) upper extremity Dyspnea on exertion Echocardiogram on 12/05/2022 revealed ejection fraction of 60-65% with grade 1 diastolic dysfunction. Anemia hemoglobin 12.6 on 03/31/2022. Hemoglobin 13.4, iron 75 with 23% saturation and ferritin 192 with vitamin B12 2000 and folic acid 20 on 11/16/2022. Hemoglobin 13.8 with vitamin B12 1117 on 12/06/2023. Near syncope (~10/2022) Carotid Doppler study on 11/18/2022 was normal. Serum potassium elevated Potassium elevated at 5.6, repeated at 4.7 on 10/28/2022. Potassium 5.4 on 12/08/2023. Potassium normal at 4.4 on 07/04/2024. ALFREDA (obstructive sleep apnea) failure on CPAP. Elevation of head of bed. 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 Nephrolithiasis Diverticulitis Pneumonia Hypertension Surgical History Surgical History History of prostate surgery SP TURP for BPH Previous back surgery Family History Family History Sibling Hypertension Malignant neoplasm of prostate Patient's brother is Mother Family history of malignant neoplasm of breast in first degree relative Family history of malignant neoplasm of urinary bladder Patient's mother is Father Patient's father is Social History Social History Smoking status: Never smoker Second hand tobacco smoke exposure: No Alcohol intake: never Substance use: never Substance use type: does not use Lack of Transportation: No Lack of Food: Never True Current Housing: I Have Housing Concerned About Future Housing: No Difficulty Paying Gas/Electric Bills: No Difficulty Paying for Meds: No Currently Unemployed: No Education: High School Diploma/GED Difficulty w/ Childcare or Family Care: No Living arrangements: with family Additional living arrangements comments: Gender identity (if verbalized by the patient): Male Spiritual care concerns: No Meds Home Medications and Allergies Home Medications ?Medication ?Instructions ?Recorded ?Confirmed ?Type aspirin 81 mg capsule 81 mg PO DAILY 05/17/21 02/26/25 History tamsulosin 0.4 mg capsule 0.4 mg PO DAILY 05/17/21 03/06/25 History zinc 50 mg tablet 50 mg PO DAILY 05/17/21 03/06/25 History cyanocobalamin (vitamin B-12) 2,500 mcg PO EVERY OTHER DAY 08/24/21 03/06/25 History 5,000 mcg capsule cholecalciferol (vitamin D3) 125 5,000 unit PO EVERY OTHER DAY 11/15/22 03/06/25 History mcg (5,000 unit) tablet donepezil 5 mg tablet (Aricept) 5 mg PO QHS #30 tabs 07/25/24 03/06/25 Rx escitalopram oxalate 20 mg tablet 20 mg PO DAILY #30 tabs 10/25/24 03/06/25 Rx (Lexapro) cephalexin 500 mg capsule 500 mg PO DAILY 11/21/24 03/06/25 History enalapril maleate 20 mg tablet 20 mg PO DAILY #90 tabs 12/17/24 03/06/25 Rx pantoprazole 40 mg tablet,delayed 40 mg PO DAILY #90 tabs 12/17/24 03/06/25 Rx release hydrocodone 5 mg-acetaminophen 325 1 tablet PO Q6H PRN pain #6 tabs 02/01/25 02/26/25 Rx mg tablet acetaminophen 500 mg capsule 1,000 mg PO Q6H PRN pain 02/26/25 02/26/25 History fluticasone propionate 50 1 spray intranasal BID PRN nasal 02/26/25 03/06/25 History mcg/actuation nasal congestion spray,suspension geriatric multivitamin-min 1 tablet PO DAILY 02/26/25 03/06/25 History Allergies Allergy/AdvReac Type Severity Reaction Status Date / Time morphine AdvReac Severe Hypotension Verified 03/06/25 11:38 Exam Const: General: no acute distress Resp: Effort & Inspection: normal respiratory effort GI: Inspection: non-distended GI Palp: No abdominal tenderness and No Guarding due to palpation present (GI) Auscultation: normal bowel sounds Assessment and Plan Assessment and plan (1) Mass of urinary bladder: Code(s): N32.89 - Other specified disorders of bladder Status: Acute Assessment and Plan: Cystoscopy, Removal Foreign Body from Bladder Dome,Possible Trans Urethral Resection Bladder Tumor
[2025-03-06] MEDS: ceFAZolin 2 GM in SODIUM CHLORIDE 0.9% IV 50 ML 100 ML IVPB (12:39)
[2025-03-06] MEDS: LIDOCAINE 2% GEL UROJET 10 ML PKG MUCOUS MEM (13:00)
--- NOTE | 2025-03-06 13:23 | S_PTH ---
PATIENT: Hermes Killian LOC: [facility] U#:[id number] AGE/SX: 84/M ROOM: RE03/06/[address]: Joel Lopez MD : 1940 BED: DIS: 03/06/2025 SPEC #: [id number] RECD: 03/06/25 14:37 STATUS: JENY REQ #: [id number] ORQUIDEA: 03/06/25 13:[address]: Joel Lopez DEPT: [facility] Surgical RECD BY: Yumiko Adams ENTERED: 03/06/25 14:37 SP TYPE: Surgical OTHR DR: Jeffery Robles MD Tissues: A - Bladder TURBT Procedures: Immunoperoxidase Hematoxylin and Eosin Stain Gross and Microscopic Level 5 NKX.3 JOSE DAVID-3 HER2
--- NOTE | 2025-03-06 14:05 | W.PM.PROC2 ---
Procedure Note - Detailed Date of Procedure 03/06/25 Pre-op Diagnosis Intermittent hematuria with bladder growth of uncertain etiology Post-op Diagnosis Other (1. 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 bladder neck contracture) Procedure Performed cystoscopy, urethral dilatation TURBT (2 cm) Surgeon Joel Lopez MD Anesthesia General Findings 1. Tight bladder neck contracture 2. 2 cm neoplastic growth in the right anterior lateral bladder wall Description of Procedure Patient is brought to the operative suite was prepped draped in routine sterile fashion while in the dorsal lithotomy position after the uneventful induction of a general LMA anesthetic. Tried unsuccessfully to place a 24 F resectoscope sheath but was unable due to bladder neck contracture. Over a 0.035 in guidewire I dilated that from F to 28 F Amplatz dilators. Was then able to place resectoscope into his bladder. The bladder was very carefully inspected. He is found to this unusual looking neoplastic growth in the right anterior lateral bladder wall. There is some peripheral papillary changes to that. I resected the entire area with attempt made to include detrusor muscle for pathological evaluation of invasion. The base and periphery this was cauterized with a rollerball. Removed with the bladder mucosa was normal without are areas neoplastic growth. I did opt leave an 18 F catheter because of the bladder contracture, Drains No Packing Yes
[2025-03-06] MEDS: oxyCODONE HCL (*CRX) 5 MG TAB IR PO (14:31)
== END 2025-03-06 15:21 | disposition home or self-care (01) ==
PROVIDERS: PCP Family Medicine; Visit Provider Urology
PROC: 0TBB8ZX Excision of Bladder, Via Natural or Artificial Opening Endoscopic, Diagnostic (ICD-10-PCS; CPT 52204; principal; 2025-03-06 13:30)
PROC: 0TBB8ZZ Excision of Bladder, Via Natural or Artificial Opening Endoscopic (ICD-10-PCS; CPT 52234; 2025-03-06 13:30)
DX: C67.2 Malignant neoplasm of lateral wall of bladder (principal); N32.89 Other specified disorders of bladder; I10 Essential (primary) hypertension; D64.9 Anemia, unspecified; G47.33 Obstructive sleep apnea (adult) (pediatric); R09.02 Hypoxemia; I70.0 Atherosclerosis of aorta; N40.0 Benign prostatic hyperplasia without lower urinary tract symptoms; E29.1 Testicular hypofunction; D72.829 Elevated white blood cell count, unspecified; F52.32 Male orgasmic disorder; M50.31 Other cervical disc degeneration, high cervical region; M50.321 Other cervical disc degeneration at C4-C5 level; M50.322 Other cervical disc degeneration at C5-C6 level; L30.9 Dermatitis, unspecified; Z79.82 Long term (current) use of aspirin; Z79.891 Long term (current) use of opiate analgesic; Z79.899 Other long term (current) drug therapy; Z98.890 Other specified postprocedural states; Z98.1 Arthrodesis status; Z87.19 Personal history of other diseases of the digestive system; Z80.42 Family history of malignant neoplasm of prostate; Z80.3 Family history of malignant neoplasm of breast; Z80.52 Family history of malignant neoplasm of bladder
CPT/HCPCS: 52234; 88307; 88342; J0690; A9270; C1726; C1769; J2003; J2405; J2704; J7120

== ENCOUNTER 2025-04-10 01:10 | Day surgery (SDC) | payer OTHER, SELFPAY ==
--- NOTE | 2025-03-31 14:03 | PC.NURSE ---
[facility] has started construction of its new state of the art ER which will open Spring 2026. With this, we anticipate parking may be a challenge for some our surgical patients and families. Parking spaces are limited but are available for all Surgical, obstetrics, and ER patients sharing this lot. If you arrive and find you are having a hard time finding a parking space, please note that we understand the challenges, please drive around the hospital and park near Hospital Entrance 1. When you enter this entrance, you can ask a volunteer to direct or take you back to the surgical waiting area to check in. We appreciate everyone?s understanding of these expected challenges while we build for your future. Report to the Outpatient Waiting Room, entrance under the green pavilion located off [address], at time _1:30 PM on date _04/10/25 . Planned Procedure Time: ____3:30 PM____.? Time changes happen often and if your time is changed the preop area will call you the afternoon before. - You and your visitor will be asked to self-screen and do not enter if you have any COVID symptoms. Please call surgeon if you need to reschedule. - A mask is optional within the hospital at this time. Patients may have clear liquids (water, carbonated beverages, clear teas, apple juice) until 3 hours prior to surgery( 12:30 PM) with a maximum of 20 ounces. - No food from midnight until time of surgery and no smoking, or chewing tobacco (or any form of nicotine). No chewing gum, candy or mints. Take only the following medications with a SIP of water on the morning of surgery: _ESCITALOPRAM DO NOT STOP ANY OF YOUR OTHER PRESCRIPTION MEDICATIONS PRIOR TO SURGERY EXCEPT THE FOLLOWING Hold all vitamins and supplements for 3 days per anesthesiologist. STATES HAS NOT RESUME VITAMINS SINCE 03/08/25 Medications to discontinue per physician WIFE STATES LAST DOSE SINCE MAR 08 2025 Date to take last dose Please no make-up, nail macedonian, hairspray, perfume, deodorant, or body powder the day of surgery.? No jewelry (including any body piercings) or valuables the day of surgery, leave them at home.? Please take a shower or bath the night before, or the morning of, surgery with an antibacterial soap.? Wear comfortable, loose fitting clothing.? Children are encouraged to wear pajamas. - Jewelry must be removed prior to entering the operating room.? Rings and piercings that are not removed may be cut off. - The hospital will not accept responsibility for valuables.? - Please leave all valuables, including medications, at home the day of surgery. If you are going home after surgery, a licensed uke driver must drive you home.? - NO public transportation without another adult if you receive anesthesia. - We recommend that an adult stay with you for 24 hours following discharge. - We also recommend that you do not drive, make important decision, drink alcoholic beverages, or take any drugs that were not prescribed by your health care provider for at least 24 hours after your discharge time. For Pediatric surgeries, we recommend two adults accompany the child home. Follow any additional instructions given to you from your surgeon. Telephone instructions given to _WIFE and asked if any additional questions and then verbalized understanding. Patient advised to call surgeon office or pre surgery nurse liaison [phone] if any additional questions.
[2025-03-31 14:17] VITALS: BMI 30.2
--- NOTE | 2025-04-04 06:44 | PM.HPGS ---
History of Present Illness History of Present Illness Consent: Risks, benefits, and alternatives have been discussed and questions answered. Patient agrees to proceed with procedure. Chief complaint: bladder CA Narrative: Hermes Killian is a 84 year old male recently underwent TURBT for his 1st bladder tumor. Patient has a known atonic bladder. 02/01/25: ?CT-chest, abd., pelvis w/ contast: - normal upper tracts ?- possible nodule right ant. 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 1 cm polypoid nodule right side of the urinary bladder on CT abdomen in the ER on 02/01/2025. Disc disease, degenerative, cervical CT cervical spine 02/01/2025 with degenerative disc disease with moderate spinal stenosis and neuroforaminal stenosis at C3-C4, C4-C5, and C5-C6. Leg weakness, bilateral BMI 28.0-28.9,adult Functional memory problem Balanitis Seasonal allergic rhinitis At moderate risk for fall Overweight (BMI 25.0-29.9) BMI 29.0-29.9,adult Dermatitis (~09/2022) upper extremity Dyspnea on exertion Echocardiogram on 12/05/2022 revealed ejection fraction of 60-65% with grade 1 diastolic dysfunction. Anemia hemoglobin 12.6 on 03/31/2022. Hemoglobin 13.4, iron 75 with 23% saturation and ferritin 192 with vitamin B12 2000 and folic acid 20 on 11/16/2022. Hemoglobin 13.8 with vitamin B12 1117 on 12/06/2023. Hemoglobin 12.2, iron 73 with 22% saturation and ferritin 178 on 02/28/2025. Near syncope (~10/2022) Carotid Doppler study on 11/18/2022 was normal. Serum potassium elevated Potassium elevated at 5.6, repeated at 4.7 on 10/28/2022. Potassium 5.4 on 12/08/2023. Potassium normal at 4.4 on 07/04/2024. Potassium normal at 5.0 on 02/28/2025. ALFREDA (obstructive sleep apnea) failure on CPAP. Elevation of head of bed. Skin lesions, generalized COVID-19 On prison drug therapy Urinary tract infection due to Klebsiella species Bacteremia due to Klebsiella pneumoniae Septicemia Hypoxia Overnight oxygen saturation study 06/29/2016 with nocturnal hypoxemia with baseline of 89.8% and desaturation to 57%. 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 Nephrolithiasis Diverticulitis Pneumonia Hypertension Surgical History Surgical History History of prostate surgery SP TURP for BPH Previous back surgery Family History Family History Sibling Hypertension Malignant neoplasm of prostate Patient's brother is Mother Family history of malignant neoplasm of breast in first degree relative Family history of malignant neoplasm of urinary bladder Patient's mother is Father Patient's father is Social History Social History Smoking status: Never smoker Second hand tobacco smoke exposure: No Alcohol intake: never Substance use: never Substance use type: does not use Lack of Transportation: No Lack of Food: Never True Current Housing: I Have Housing Concerned About Future Housing: No Difficulty Paying Gas/Electric Bills: No Difficulty Paying for Meds: No Currently Unemployed: No Education: High School Diploma/GED Difficulty w/ Childcare or Family Care: No Living arrangements: with family Additional living arrangements comments: Gender identity (if verbalized by the patient): Male Spiritual care concerns: No Meds Home Medications and Allergies Home Medications ?Medication ?Instructions ?Recorded ?Confirmed ?Type aspirin 81 mg capsule 81 mg PO DAILY 05/17/21 03/31/25 History Held on 03/06/25. Instructions: Resume on 03/08/25. tamsulosin 0.4 mg capsule 0.4 mg PO DAILY 05/17/21 03/31/25 History zinc 50 mg tablet 50 mg PO DAILY 05/17/21 03/31/25 History Held on 03/06/25. Instructions: Resume on 03/08/25. cyanocobalamin (vitamin B-12) 2,500 mcg PO EVERY OTHER DAY 08/24/21 03/31/25 History 5,000 mcg capsule cholecalciferol (vitamin D3) 125 5,000 unit PO EVERY OTHER DAY 11/15/22 03/31/25 History mcg (5,000 unit) tablet donepezil 5 mg tablet (Aricept) 5 mg PO QHS #30 tabs 07/25/24 03/31/25 Rx escitalopram oxalate 20 mg tablet 20 mg PO DAILY #30 tabs 10/25/24 03/31/25 Rx (Lexapro) cephalexin 500 mg capsule 500 mg PO DAILY 11/21/24 03/31/25 History enalapril maleate 20 mg tablet 20 mg PO DAILY #90 tabs 12/17/24 03/31/25 Rx hydrocodone 5 mg-acetaminophen 325 1 tablet PO Q6H PRN pain #6 tabs 02/01/25 03/31/25 Rx mg tablet acetaminophen 500 mg capsule 1,000 mg PO Q6H PRN pain 02/26/25 03/31/25 History geriatric multivitamin-min 1 tablet PO DAILY 02/26/25 03/31/25 History Held on 03/06/25. Instructions: Resume on 03/08/25. hydrocodone 5 mg-acetaminophen 325 1 - 2 tablet PO Q6H PRN pain #20 03/06/25 03/31/25 Rx mg tablet tabs fluticasone propionate 50 1 spray intranasal BID PRN nasal 03/24/25 03/31/25 Rx mcg/actuation nasal congestion #48 grams spray,suspension pantoprazole 40 mg tablet,delayed 40 mg PO DAILY #90 tabs 03/24/25 03/31/25 Rx release Allergies Allergy/AdvReac Type Severity Reaction Status Date / Time morphine AdvReac Severe Hypotension Verified 03/31/25 14:02 Exam Const: General: no acute distress Resp: Effort & Inspection: normal respiratory effort GI: Inspection: non-distended GI Palp: No abdominal tenderness and No Guarding due to palpation present (GI) Auscultation: normal bowel sounds Assessment and Plan Assessment and plan (1) Mass of urinary bladder: Code(s): N32.89 - Other specified disorders of bladder Status: Acute Assessment and Plan: Pre resection bladder tumor base
[2025-04-10] VITALS (9 sets, daily range): BP systolic 137–157; BP diastolic 68–91; PULSE 55–81; RESP 10–16; TEMP 36.1–36.3; O2SAT 99–100
--- OUTSIDE RECORDS SUMMARY | 2025-04-10 02:07 | XMS_ITS | Encounter Summary ---
Author Organization [facility] Address [address] [place] [address] Care Team Providers Care Inspector Elevators Name Role Phone Lyndon Sanchez MD Primary Care Provider [phone]- [phone] Encounter Details Date Type Department Care Team (Late st Contact Info) Description 03/12/2025 Lab Requisition [facility] - Pathology Lab [address] [place] [id number] Gonzalez Emanuel MD [address] [id number] Illness, unspecified Social History Tobacco Use Types Packs/Day Years Used Date Smoking Tobacco: Never Assessed Sex and Gender Information Value Date Recorded Sex Assigned at Not on file Legal Sex Male 10:35 AM CDT Gender Identity Not on file Sexual Orientation Not on file documented as of this encounter Plan of Treatment Not on file documented as of this encounter Procedures Procedure Name Priority Date/Time Associated Diagnosis Comments SLIDE PREP HISTOLOGY Routine 03/12/2025 11:50 AM CDT Illness, unspecified documented in this encounter Results * SLIDE PREP HISTOLOGY (03/12/2025 11:50 AM CDT) Client Specimen ID # [id number] 03/26/2025 4:13 PM [facility] Number of Blocks Received 0 03/26/2025 4:13 PM [facility] Number of Slides 1 03/26/2025 4:13 PM [facility] Number of Control Slides 1 03/26/2025 4:13 PM PHYSICAL THERAPIST CENTER MANAGER [facility] Pathology/Cytolo gy 03/12/2025 11:50 AM CDT 03/12/2025 11:51 AM CDT us Gonzalez Emanuel MD LAB - PATHOLOGY/CYTOLOGY ORDERAB LES Final Result Performing Organization Address City/State/[facility] Co de Phone Number [facility] [address] [phone] documented in this encounter Visit Diagnoses Diagnosis Illness, unspecified documented in this encounter Care Teams Inspector Elevators Relationship Specialty Start Date End Date Lyndon Sanchez MD [address] [place] [id number] PCP - General 01/03/20 documented as of this encounter
--- OUTSIDE RECORDS SUMMARY | 2025-04-10 02:07 | XMS_ITS | Clinical Summary ---
Author Organization [facility] Address [address] [place] [address] Care Team Providers Care Helicopter Pilot Instructor Name Role Phone Lyndon Sanchez MD Primary Care Provider [phone]- [phone] Source Comments [facility],non-owned Affiliates and Associated Physician Practices is amultiple site organization consisting of ambulatory clinics and hospital sitesin [place], [place], [place] and [place]. This disclosure is being madepursuant to the Care Everywhere program and may not contain all information available regarding this patient. Last updated 18.[facility] Encounters Date Type Department Care Team Description 03/12/2025 Lab Requisition [facility] - Pathology Lab [address] [place] [address] Gonzalez Emanuel MD Illness, unspecified from Last 3 Months Social History Tobacco Use Types Packs/Day Years Used Date Smoking Tobacco: Never Assessed Sex and Gender Information Value Date Recorded Sex Assigned at Not on file Legal Sex Male 10:35 AM CDT Gender Identity Not on file Sexual Orientation Not on file Plan of Treatment Health Maintenance Due Date Last Done Comments MEDICARE AWV 12 MONTHS 1940 DTAP/TDAP/TD VACCINES (1 - Tdap) 11/12/1959 PNEUMOCOCCAL VACCINE 50+ (1 of 1 - PCV) 1990 ZOSTER VACCINE (1 of 2) 1990 Respiratory Syncytial Virus (RSV) Vaccine Pt: or over 60 yrs (1 - 1-dose 75+ series) 11/12/2015 DEPRESSION SCREENING 05/22/2024 COVID-19 VACCINE (1 - 2024-2 6 season) 2025 INFLUENZA VACCINE (#1) 2025 HEPATITIS B VACCINE Aged Out No longe r eligible based on patient's age to complete this topic HIB VACCINE Aged Out No longer eligi ble based on patient's age to complete this topic HPV VACCINE Aged Out No longer eligi ble based on patient's age to complete this topic MENINGOCOCCAL (Group B) VACC INE SHARED DECISION-MAKING Aged Out No longer eligibl e based on patient's age to complete this topic MENINGOCOCCAL GROUPS A/C/Y/W VACCINE Aged Out No longer eligible b ased on patient's age to complete this topic Procedures Procedure Name Priority Date/Time Associated Diagnosis Comments SLIDE PREP HISTOLOGY Routine 03/12/2025 11:50 AM CDT Illness, unspecified from Last 3 Months Results * SLIDE PREP HISTOLOGY (03/12/2025 11:50 AM CDT) Client Specimen ID # [id number] 03/26/2025 4:13 PM [facility] Number of Blocks Received 0 03/26/2025 4:13 PM [facility] Number of Slides 1 03/26/2025 4:13 PM [facility] Number of Control Slides 1 03/26/2025 4:13 PM [facility] Pathology/Cytolo gy 03/12/2025 11:50 AM CDT 03/12/2025 11:51 AM CDT Gonzalez Emanuel MD LAB - PATHOLOGY/CYTOLOGY ORDERAB LES Final Result Performing Organization Address City/State/[facility] Co de Phone Number [facility] [address] [place] [address], [facility] [phone] from Last 3 Months Insurance [employer] [place] [id number] [facility] MEDICARE ADV PPO SELF PAY NO INSURANCE Member Subscriber Plan / Payer (Ef fective for All Dates) Name:Nilton Byrd Member ID:Not on file Relation to Subscriber:Not on file Name:RAMYA BYRDE Subscriber ID:Not on file (Home) Address: [address] [place] [address] Payer ID:Not on file Group ID:Not on file Type:Self Pay Address: [place], [place] [facility] MEDICARE [facility] MEDICARE [facility] MEDICARE [facility] MEDICARE [facility] MEDICARE [facility] MEDICARE Care Teams Helicopter Pilot Instructor Relationship Specialty Start Date End Date Lyndon Sanchez MD [address] [place] [phone] PCP - General 01/03/20
--- NOTE | 2025-04-10 06:30 | WPDHPUPDATE1 ---
History and Physical Update Update Date/Time: 04/10/25 06:30 History and Physical has been reviewed, including an updated exam of the patient. There are NO changes in the patient's condition. Risks, benefits, and alternatives have been discussed and questions answered. Patient agrees to proceed with procedure.
[2025-04-10] MEDS: LACTATED RINGERS 1,000 ML 30 ML IV CONT (12:30)
--- NOTE | 2025-04-10 13:48 | P.PNAN_ITS ---
Anes - Initial Pre Proc Eval Procedure: Operation Date: 04/10/25 13:30 Proposed Procedures p Re-Resection Bladder Tumor Base - Joel Lopez MD Date/Time: 04/10/25 13:48 Surgeon: Joel Lopez MD Pre Op Diagnosis: bladder CA Patient Data Age: 84 Gender: M Height: 1.68 m Weight: 85 kg Last Vital Signs Temp 97.4 F L 04/10/25 13:18 Pulse 65 04/10/25 13:18 Resp 16 04/10/25 13:18 BP 155/77 H 04/10/25 13:18 Pulse Ox 99 04/10/25 13:18 O2 Del Method Room Air 04/10/25 13:18 Allergies Allergy/AdvReac Type Severity Reaction Status Date / Time morphine AdvReac Severe Hypotension Verified 04/10/25 13:14 Home Medications ?Medication ?Instructions ?Recorded ?Confirmed ?Type aspirin 81 mg capsule 81 mg PO DAILY 05/17/2103/23 History Held on 03/06/25. Instructions: Resume on 03/08/25. tamsulosin 0.4 mg capsule 0.4 mg PO DAILY 05/17/2103/15 History zinc 50 mg tablet 50 mg PO DAILY 05/17/2103/22 History Held on 03/06/25. Instructions: Resume on 03/08/25. cyanocobalamin (vitamin B-12) 2,500 mcg PO EVERY OTHER DAY 08/24/21 03/31/25 History 5,000 mcg capsule cholecalciferol (vitamin D3) 125 5,000 unit PO EVERY O THER DAY 11/15/22 03/31/25 History mcg (5,000 unit) tablet donepezil 5 mg tablet (Aricept) 5 mg PO QHS #30 tabs 0 07/25/24 03/31/25 Rx escitalopram oxalate 20 mg tablet 20 mg PO DAILY #30 t abs 10/25/24 04/10/25 Rx (Lexapro) cephalexin 500 mg capsule 500 mg PO DAILY 11/21/2403/15 History enalapril maleate 20 mg tablet 20 mg PO DAILY #90 tabs 12/17/24 03/31/25 Rx hydrocodone 5 mg-acetaminophen 325 1 tablet PO Q6H PRN pain #6 tabs 02/01/25 03/31/25 Rx mg tablet acetaminophen 500 mg capsule 1,000 mg PO Q6H PRN pain 02/26/25 03/31/25 History geriatric multivitamin-min 1 tablet PO DAILY 02/26/25 03/31/25 History Held on 03/06/25. Instructions: Resume on 03/08/25. hydrocodone 5 mg-acetaminophen 325 1 - 2 tablet PO Q6H PRN pain #20 03/06/25 03/31/25 Rx mg tablet tabs fluticasone propionate 50 1 spray intranasal BID PRN n jenny 03/24/25 03/31/25 Rx mcg/actuation nasal congestion #48 grams spray,suspension pantoprazole 40 mg tablet,delayed 40 mg PO DAILY #90 t abs 03/24/25 03/31/25 Rx release Patient hx anesthesia problems: none Family hx anesthesia problems: none Results Review: All pre-operative results and documents have been reviewed as part of the pre- operative evaluation. 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 1 cm polypoid nodule right side of the urinary bladder on CT abdomen in the ER on 02/01/2025. Disc disease, degenerative, cervical CT cervical spine 02/01/2025 with degenerative disc disease with moderate spinal stenosis and neuroforaminal stenosis at C3-C4, C4-C5, and C5-C6. Leg weakness, bilateral BMI 28.0-28.9,adult Functional memory problem Balanitis Seasonal allergic rhinitis At moderate risk for fall Overweight (BMI 25.0-29.9) BMI 29.0-29.9,adult Dermatitis (~09/2022) upper extremity Dyspnea on exertion Echocardiogram on 12/05/2022 revealed ejection fraction of 60-65% with grade 1 diastolic dysfunction. Anemia hemoglobin 12.6 on 03/31/2022. Hemoglobin 13.4, iron 75 with 23% saturation and ferritin 192 with vitamin B12 2000 and folic acid 20 on 11/16/2022. Hemoglobin 13.8 with vitamin B12 1117 on 12/06/2023. Hemoglobin 12.2, iron 73 with 22% saturation and ferritin 178 on 02/28/2025. Near syncope (~10/2022) Carotid Doppler study on 11/18/2022 was normal. Serum potassium elevated Potassium elevated at 5.6, repeated at 4.7 on 10/28/2022. Potassium 5.4 on 12/08/2023. Potassium normal at 4.4 on 07/04/2024. Potassium normal at 5.0 on 02/28/2025. ALFREDA (obstructive sleep apnea) failure on CPAP. Elevation of head of bed. 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 Nephrolithiasis Diverticulitis Pneumonia Hypertension Surgical History Surgical History History of prostate surgery SP TURP for BPH Previous back surgery Family History Family History Sibling Hypertension Malignant neoplasm of prostate Patient's brother is Mother Family history of malignant neoplasm of breast in first degree relative Family history of malignant neoplasm of urinary bladder Patient's mother is Father Patient's father is Social History Social History Smoking status: Never smoker Second hand tobacco smoke exposure: No Alcohol intake: never Substance use: never Substance use type: does not use Lack of Transportation: No Lack of Food: Never True Current Housing: I Have Housing Concerned About Future Housing: No Difficulty Paying Gas/Electric Bills: No Difficulty Paying for Meds: No Currently Unemployed: No Education: High School Diploma/GED Difficulty w/ Childcare or Family Care: No Living arrangements: with family Additional living arrangements comments: Gender identity (if verbalized by the patient): Male Spiritual care concerns: No Anes - Eval Final PreProcedure Day of Procedure 04/10/25 13:48 Patient weight: obese Lungs: normal air movement Airway: Mallampati scale class II Neurological: alert and oriented Last oral intake: >/= 8 hours ASA classification: III Emergent: no Anesthetic plan: proceed Anesthesia type and monitoring: general LMA and standard monitoring Results Review: All pre-operative results and documents have been reviewed as part of the pre- operative evaluation. HTN, ALFREDA, GERD, mild memory loss. No cp or sob w ambulating short distances. Informed Consent: The patient's anesthetic plan and its attendant risks and benefits were discussed with the patient/family/POA. Questions were solicited and answers provided to the satisfaction of the patient/family/POA.
[2025-04-10] MEDS: ceFAZolin 2 GM in SODIUM CHLORIDE 0.9% IV 50 ML 100 ML IVPB (14:05)
--- NOTE | 2025-04-10 14:15 | S_PTH ---
PATIENT: Hermes Killian LOC: [facility] U#:[id number] AGE/SX: 84/M ROOM: RE04/10/[address]: Joel Lopez MD : 1940 BED: DIS: 04/10/2025 SPEC #: [id number] RECD: 04/11/25 07:55 STATUS: JENY REQ #: [id number] ORQUIDEA: 04/10/25 14:[address]: Joel Lopez DEPT: [facility] Surgical RECD BY: Yumiko Adams ENTERED: 04/11/25 07:55 SP TYPE: Surgical OTHR DR: Jeffery Robles MD Tissues: A - Bladder Tumor B - Bladder Tumor Procedures: Dang Keratin Hematoxylin and Eosin Stain Gross and Microscopic Level 4 CK 20 HHF-35
--- NOTE | 2025-04-10 14:50 | W.PM.PROC2 ---
Procedure Note - Detailed Date of Procedure 04/10/25 Pre-op Diagnosis History T1, High-grade bladder tumor Post-op Diagnosis Same Procedure Performed Re-resection bladder tumor base, TURBT (medium, 3 cm) Surgeon Joel Lopez MD Anesthesia General Description of Procedure Patient is brought to the operative suite was prepped draped in routine sterile fashion while in dorsal lithotomy position after the uneventful induction of a general LMA anesthetic. Cystoscopy was undertaken with a 24 F resectoscope. The area of previous bladder tumor resection in the right anterior lateral bladder wall is easily identified. There was no gross residual tumor. I did an aggressive re-resection at that site with attempt made to include detrusor muscle for pathological evaluation of recurrent or invasion. In addition to that site he has 1 small papillary tumor that is either new or unrecognized on recent resection. That site appears papillary and superficial. It is resected in its entirety in the bases cauterized. This is all done with care taken to avoid injury to the ureteral orifices. Resectoscope was removed and he was taken to the recovery room in good condition. Drains No Packing No Pathology Yes
== END 2025-04-10 16:32 | disposition home or self-care (01) ==
PROVIDERS: PCP Family Medicine; Visit Provider Urology
PROC: 0TBB8ZZ Excision of Bladder, Via Natural or Artificial Opening Endoscopic (ICD-10-PCS; CPT 52235; principal; 2025-04-10 13:30)
DX: C67.9 Malignant neoplasm of bladder, unspecified (principal); E66.9 Obesity, unspecified; Z68.30 Body mass index [BMI] 30.0-30.9, adult
CPT/HCPCS: 52235; 88305; 88342; J0690; J2003; J2405; J2704; J3010; J7120